=== PATIENT | female | born 1985 | race Two or more races ===

== ENCOUNTER 2020-03-10 13:38 | Outpatient (REF) | payer OTHER, SELFPAY ==
[2020-03-10 14:25] LABS: MANUAL DIFF FLAG NO
[2020-03-10 14:26] LABS: Basophils Absolute Auto 0.1 X10*3/uL (0.0-0.2); Basophils Percent Auto 0.3 % (0-2); Eosinophils Absolute Auto 1.2 X10*3/uL (0.0-0.4); Hematocrit 32.6 % (37-47); Hemoglobin 9.6 g/dl (12.0-16.0); Imm Gran Abs Auto 0.07 X10*3/uL (0.00-0.03); Imm Gran Pct Auto 0.5 % (0.0-0.4); Lymphocytes Absolute Auto 2.6 X10*3/uL (1.2-4.9); Lymphocytes Percent Auto 18.1 % (20-40); Mean Corpuscular HGB Conc 29.4 g/dl (31.0-35.0); Mean Corpuscular Hemoglobin 22.7 pg (27.0-33.0); Mean Corpuscular Volume 77.1 fL (80-98); Mean Platelet Volume 11.3 fL (9.4-12.3); Monocytes Absolute Auto 0.7 X10*3/uL (0.1-1.2); Monocytes Percent Auto 5.1 % (2-11); Neutrophils Absolute Auto 9.8 X10*3/uL (2.0-8.3); Platelet Count 320 X10*3/uL (160-400); Red Blood Count 4.23 X10*6/uL (4.20-5.50); Red Cell Distribution Width 17.8 % (11.0-16.0); White Blood Count 14.4 X10*3/uL (4.8-10.8)
[2020-03-10 14:28] LABS: Glucose Urine UA NEG (NEG); Leukocyte Esterase Urine NEG (NEG); Nitrite Urine NEG (NEG); Specific Gravity - Urine >= 1.030 (1.005-1.025); Urine Blood 1+ (NEG); Urine Ketones NEG (NEG); Urine Protein TRACE MG/DL (NEG-TRACE)
[2020-03-10 14:33] LABS: Appearance Urine CLEAR; Color Urine YELLOW
[2020-03-10 14:51] LABS: Estimated Average Glucose 103 mg/dL; Hemoglobin A1c % 5.2 %
[2020-03-10 14:58] LABS: Alanine Aminotransferase 9 U/L (0-31); Albumin Level 4.1 g/dL (3.5-5.0); Alkaline Phosphatase 84 U/L (39-117); Anion Gap 12 (12-20); Aspartate Amino Transferase 12 U/L (5-31); Bilirubin Total 0.2 mg/dL (0.0-1.0); Blood Urea Nitrogen 11 mg/dL (9-16); C Reactive Protein 0.14 mg/dL (< or = 0.50); Calcium 8.9 mg/dL (8.4-10.2); Carbon Dioxide 25 mmol/L (22-29); Chloride 106 mmol/L (96-108); Cholesterol 146 mg/dL; Estimated Glomerular Filt Rate > 60; Glucose Random 84 mg/dL (60-115); Sodium 138 mmol/L (135-145); Total Protein 7.1 g/dL (6.5-8.0)
[2020-03-10 15:01] LABS: Mucus Urine 1+ /LPF; Squamous Epithelial Cell Urine 2+ /LPF; WBC Urine 0 /HPF (0-4)
[2020-03-10 15:19] LABS: Thyroid Stimulating Hormone 0.41 mIU/mL (0.32-4.0); Vitamin D 25-OH Total 14.1 ng/mL (>30)
[2020-03-10 15:52] LABS: Syphilis Screen Reactive (Nonreactive)
[2020-03-10 16:40] LABS: Vitamin B12 308 pg/mL (200-900)
[2020-03-10 20:09] LABS: CT PCR NOT DETECTED (Not Detect.); NG PCR NOT DETECTED (Not Detect.)
[2020-03-22 12:49] LABS: RPR Quantitative Reactive 1:1 (Nonreactive); T.Pallidum Particle Agg Test Reactive (Nonreactive)
== END 2020-03-10 13:39 | disposition home or self-care (01) ==
LOC: HO.LAB 13:38
PROVIDERS: Visit Provider Internal Medicine
DX: R51.9 Headache, unspecified (principal); G35 Multiple sclerosis; E55.9 Vitamin D deficiency, unspecified; R53.83 Other fatigue; Z11.3 Encounter for screening for infections with a predominantly sexual mode of transmission; Z11.4 Encounter for screening for human immunodeficiency virus [HIV]; Z13.29 Encounter for screening for other suspected endocrine disorder; Z11.8 Encounter for screening for other infectious and parasitic diseases
CPT/HCPCS: 36415; 80053; 81001; 82306; 82465; 82607; 83036; 84443; 85025; 86140; 86592; 86780; 87491; 87591

== ENCOUNTER 2020-06-14 09:09 | Emergency (ER) | payer OTHER, SELFPAY ==
[2020-06-14 09:18] VITALS: BP 113/71; PULSE 89; RESP 18; TEMP 37.2; O2SAT 98; BMI 32.1
--- NOTE | 2020-06-14 09:27 | ED_ITS ---
HPI - URI/Sore Throat General Chief Complaint: General Medical <LEYLA Moran - Last Filed: 06/14/20 09:36> Stated Complaint: sore throat <LEYLA Moran - Last Filed: 06/14/20 09:36> Time Seen by Provider: 06/14/20 09:19 <LEYLA Moran - Last Filed: 06/14/20 09:36> Source: patient <LEYLA Moran Last Filed: 06/14/20 09:36> Mode of arrival: ambulatory <LEYLA Moran Last Filed: 06/14/20 09:36> Limitations: no limitations <LEYLA Moran Last Filed: 06/14/20 09:36> History of Present Illness HPI Narrative: 34 y/o female with no PMH presents to the ED with sore throat, chills and body aches that started yesterday. 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 She reports seeing white patches on her tonsils. She has pain with swallowing. No change in voice, no difficulty handling secretions. No chest pain, SOB or cough. <LEYLA Moran - Last Filed: 06/14/20 09:36> MD elicited complaint: sore throat <LEYLA Moran - Last Filed: 06/14/20 09:36> Onset (ago): day(s) (1) <LEYLA Moran Last Filed: 06/14/20 09:36> Consistency: constant <LEYLA Moran Last Filed: 06/14/20 09:36> Severity: severe <LEYLA Moran Last Filed: 06/14/20 09:36> Pain scale (0-10): 7 <LEYLA Moran Last Filed: 06/14/20 09:36> Able to tolerate fluids by mouth: Yes <LEYLA Moran Last Filed: 06/14/20 09:36> Exacerbating factors: swallowing <LEYLA Moran Last Filed: 06/14/20 09:36> Relieving factors: OTC cold medicine <LEYLA Moran Last Filed: 06/14/20 09:36> Associated symptoms: chills, myalgias and sore throat <LEYLA Moran Last Filed: 06/14/20 09:36> Treatments prior to arrival: none <LEYLA Moran Last Filed: 06/14/20 09:36> Related Data Home Medications: Previous Rx's Medication Instructions Recorded amoxicillin 500 mg PO Q12H #20 tab 06/14/20 <LEYLA Moran Last Filed: 06/14/20 09:36> Allergies/Adverse Reactions: Allergies Allergy/AdvReac Type Severity Reaction Status Date / Time bee pollen [BEE STINGS] Allergy Severe SWELLING Verified 06/14/20 09:23 <LEYLA Moran Last Filed: 06/14/20 09:36> Review of Systems Review of Systems: Constitutional: No Fever, + Chills ENT/Mouth: + sore throat, No Rhinorrhea, No Swallowing Difficulty Eyes: No Eye Pain, No Swelling, No Redness Cardiovascular: No Chest Pain, No SOB Respiratory: No Cough, No Sputum Gastrointestinal: No Nausea, No Vomiting, No Diarrhea, No abdominal Pain Musculoskeletal: No joint pain, + Myalgias Skin: No Skin Lesions, No rash Neuro: No Dizziness, + Headache Heme/Lymph: + Lymphadenopathy <LEYLA Moran Last Filed: 06/14/20 09:36> [facility] Past Medical History Attestation statement: The following information was validated with the patient. <LEYLA Moran Last Filed: 06/14/20 09:36> Physical Exam Vital Signs: Vital Signs: Last Vital Signs Temp 99.0 F 06/14/20 09:18 Pulse 89 06/14/20 09:18 Resp 18 06/14/20 09:18 BP 113/71 06/14/20 09:18 Pulse Ox 98 06/14/20 09:18 Body Mass Index 32.1 Appearance: Alert. Oriented X3. No acute distress. Normal voice. HEENT: posterior pharynx with swollen, erythematous tonsils bilaterally with significant white patches. uvula midline, no appreciated peritonsillar abscess. mucus membranes are moist. Neck: normal inspection, mild submandibular LAD bilaterally. CVS: Normal heart rate and rhythm. Pulses normal. Respiratory: No respiratory distress. Lungs CTAB Skin: Skin warm and dry. Normal skin color. Normal skin turgor. No rashes. Extremities: atraumatic, no [id number] Neuro: Oriented X 3. Non-focal. <LEYLA Moran - Last Filed: 06/14/20 09:36> Vital Signs: Last Vital Signs Temp 99.0 F 06/14/20 09:18 Pulse 89 06/14/20 09:18 Resp 18 06/14/20 09:18 BP 113/71 06/14/20 09:18 Pulse Ox 98 06/14/20 09:18 Body Mass Index 32.1 <Cornell Shaikh MD - Last Filed: 06/21/20 07:48> Course Course Course Narrative: 34 y/o presenting with sore throat, exam consistent with Strep pharyngitis. Recent negative COVID test. No peritonsillar abscess appreciated. Will treat for Strep with Amoxicillin. Patient counseled on management and work note provided. Stable for discharge. <LEYLA Moran - Last Filed: 06/14/20 09:36> I have reviewed the chart <Cornell Shaikh MD - Last Filed: 06/21/20 07:48> MDM - URI/Sore Throat Differential Diagnosis Differential diagnosis: Likely upper respiratory infection, sinusitis, viral infection, bronchitis, influenza and pharyngitis <LEYLA Moran - Last Filed: 06/14/20 09:36> Medical Records Attestation: I reviewed the patient's medical records. <ELYLA Moran - Last Filed: 06/14/20 09:36> Critical Care Time Critical Care Time Critical Care Time: No <LEYLA Moran - Last Filed: 06/14/20 09:36> Discharge Plan Discharge Clinical Impression: Acute streptococcal pharyngitis <LEYLA Moran - Last Filed: 06/14/20 09:36> Patient Disposition: Home, Self-Care <LEYLA Moran - Last Filed: 06/14/20 09:36> Instructions: Strep Throat (ED) <LEYLA Moran - Last Filed: 06/14/20 09:36> Additional Instructions: Your exam is consistent with Strep throat. Take the prescribed antibiotics as directed. Use warm salt water gargles several times per day. Recommend over the counter Chloraseptic [place] or Cepacol lozenges to numb your throat and help with discomfort. Take Tylenol and/or Motrin as needed for fever, body aches, and throat pain. Follow up with your doctor as needed. <LEYLA Moran - Last Filed: 06/14/20 09:36> Prescriptions: New amoxicillin 500 mg tablet 500 mg PO Q12H Qty: 20 RF: 0 <LEYLA Moran - Last Filed: 06/14/20 09:36> Stand Alone Forms: Work/School Release <LEYLA Moran - Last Filed: 06/14/20 09:36> Interventions: ED Discharge Assessment Last Done: 06/14/20 09:41 <LEYLA Moran - Last Filed: 06/14/20 09:36> Discharge Date/Time: 06/14/20 09:42 <LEYLA Moran - Last Filed: 06/14/20 09:36>
== END 2020-06-14 09:42 | disposition home or self-care (01) ==
PROVIDERS: Emergency Provider Emergency Medicine; PCP Internal Medicine
DX: J02.8 Acute pharyngitis due to other specified organisms (principal); M79.10 Myalgia, unspecified site; Z20.822 Contact with and (suspected) exposure to COVID-19
CPT/HCPCS: 99283

== ENCOUNTER 2020-06-16 14:04 | Outpatient (REF) | payer OTHER, SELFPAY ==
[2020-06-16 15:23] LABS: MANUAL DIFF FLAG NO
[2020-06-16 15:38] LABS: Basophils Absolute Auto 0.1 X10*3/uL (0.0-0.2); Basophils Percent Auto 0.5 % (0-2); Eosinophils Percent Auto 8.7 % (0-4); Hematocrit 34.2 % (37-47); Hemoglobin 10.4 g/dl (12.0-16.0); Imm Gran Abs Auto 0.06 X10*3/uL (0.00-0.03); Imm Gran Pct Auto 0.5 % (0.0-0.4); Lymphocytes Absolute Auto 2.9 X10*3/uL (1.2-4.9); Lymphocytes Percent Auto 24.8 % (20-40); Mean Corpuscular HGB Conc 30.4 g/dl (31.0-35.0); Mean Corpuscular Hemoglobin 23.6 pg (27.0-33.0); Mean Corpuscular Volume 77.7 fL (80-98); Mean Platelet Volume 11.2 fL (9.4-12.3); Monocytes Absolute Auto 0.8 X10*3/uL (0.1-1.2); Monocytes Percent Auto 6.9 % (2-11); Neutrophils Absolute Auto 6.9 X10*3/uL (2.0-8.3); Neutrophils Percent Auto 58.6 % (45-73); Platelet Count 322 X10*3/uL (160-400); Red Cell Distribution Width 17.1 % (11.0-16.0); White Blood Count 11.8 X10*3/uL (4.8-10.8)
[2020-06-16 15:59] LABS: Anion Gap 13 (12-20); Blood Urea Nitrogen 8 mg/dL (9-16); C Reactive Protein 1.94 mg/dL (< or = 0.50); Calcium 9.3 mg/dL (8.4-10.2); Carbon Dioxide 27 mmol/L (22-29); Chloride 103 mmol/L (96-108); Estimated Glomerular Filt Rate > 60; Glucose Random 79 mg/dL (60-115); Iron 20 mcg/dL (30-160); Percent Iron Saturation 5 % (15-50); Potassium 4.1 mmol/L (3.3-5.1); Sodium 139 mmol/L (135-145); Total Iron Binding Capacity 438 mcg/dL (228-428); Unsaturated Iron Binding 418 ug/dL
[2020-06-16 16:10] LABS: Free T4 (Free Thyroxine) 0.92 ng/dL (0.71-1.85); Thyroid Stimulating Hormone 0.92 uIU/mL (0.32-4.0); Vitamin D 25-OH Total 11.7 ng/mL (>30)
== END 2020-06-16 14:05 | disposition home or self-care (01) ==
LOC: HO.LAB 14:04
PROVIDERS: PCP Internal Medicine; Visit Provider Internal Medicine
DX: D64.9 Anemia, unspecified (principal); R53.83 Other fatigue; G35 Multiple sclerosis; E55.9 Vitamin D deficiency, unspecified
CPT/HCPCS: 36415; 80048; 82306; 83540; 84439; 84443; 85025; 86140

== ENCOUNTER 2020-07-27 09:07 | Outpatient (REF) | payer OTHER, SELFPAY ==
[2020-07-27 14:19] LABS: CT PCR NOT DETECTED (Not Detect.); NG PCR NOT DETECTED (Not Detect.)
[2020-07-28 09:01] LABS: BV Int Neg Control Negative (Negative); BV Int Pos Control Positive (Positive)
== END 2020-07-27 09:08 | disposition home or self-care (01) ==
LOC: HO.LAB 09:07
PROVIDERS: PCP Internal Medicine; Visit Provider Advanced Practice Midwife
DX: R10.2 Pelvic and perineal pain (principal); N89.8 Other specified noninflammatory disorders of vagina; F17.210 Nicotine dependence, cigarettes, uncomplicated; Z32.02 Encounter for pregnancy test, result negative
CPT/HCPCS: 81025; 87480; 87491; 87510; 87591; 87660; 99212

== ENCOUNTER 2020-08-01 15:41 | Outpatient (REF) | payer OTHER, SELFPAY ==
--- NOTE | ~2020-08-01 | US_ITS ---
EXAMINATION: ULTRASOUND PELVIS CLINICAL INFORMATION: Pelvic pain COMPARISON: None TECHNIQUE: Transabdominal and transvaginal ultrasound of the pelvis is performed. FINDINGS: The uterus is anteverted measuring 9.7 cm in length, 4.4 cm AP and 5.6 cm in transverse dimension. Endometrial thickness is 0.3 cm. There is a small anechoic cyst in the cervix. The right ovary measures 2.6 x 1.7 x 3.1 cm and volume 9.9 mL. There is a small cyst with septation measuring 2.2 x 1.9 cm. Left ovary measures 2.8 x 1.8 x 1.7 cm and volume 4.4 mL. There is no free fluid in the cul-de-sac. US/US transvaginal IMPRESSION: 1. Unremarkable uterus. 2. Small nabothian cysts in the cervix. 3. Small complex cyst right ovary.
--- NOTE | ~2020-08-01 | US_ITS ---
EXAMINATION: ULTRASOUND PELVIS CLINICAL INFORMATION: Pelvic pain COMPARISON: None TECHNIQUE: Transabdominal and transvaginal ultrasound of the pelvis is performed. FINDINGS: The uterus is anteverted measuring 9.7 cm in length, 4.4 cm AP and 5.6 cm in transverse dimension. Endometrial thickness is 0.3 cm. There is a small anechoic cyst in the cervix. The right ovary measures 2.6 x 1.7 x 3.1 cm and volume 9.9 mL. There is a small cyst with septation measuring 2.2 x 1.9 cm. Left ovary measures 2.8 x 1.8 x 1.7 cm and volume 4.4 mL. There is no free fluid in the cul-de-sac. US/US pelvic complete IMPRESSION: 1. Unremarkable uterus. 2. Small nabothian cysts in the cervix. 3. Small complex cyst right ovary.
== END 2020-08-01 15:42 | disposition home or self-care (01) ==
LOC: HO.US 15:41
PROVIDERS: Visit Provider Advanced Practice Midwife
DX: R10.2 Pelvic and perineal pain (principal)
CPT/HCPCS: 76830; 76856

== ENCOUNTER → 2020-08-15 11:22 | Outpatient (BNVA) | payer OTHER, SELFPAY | PROVIDERS: PCP Internal Medicine; Visit Provider Advanced Practice Midwife ==

== ENCOUNTER 2020-10-06 13:57 | Outpatient (REF) | payer OTHER, SELFPAY ==
[2020-10-06 14:36] LABS: MANUAL DIFF FLAG NO
[2020-10-06 14:44] LABS: Basophils Absolute Auto 0.1 X10*3/uL (0.0-0.2); Basophils Percent Auto 0.5 % (0-2); Eosinophils Absolute Auto 0.8 X10*3/uL (0.0-0.4); Eosinophils Percent Auto 6.3 % (0-4); Hematocrit 34.2 % (37-47); Hemoglobin 10.4 g/dl (12.0-16.0); Imm Gran Abs Auto 0.05 X10*3/uL (0.00-0.03); Imm Gran Pct Auto 0.4 % (0.0-0.4); Lymphocytes Absolute Auto 3.3 X10*3/uL (1.2-4.9); Lymphocytes Percent Auto 25.6 % (20-40); Mean Corpuscular HGB Conc 30.4 g/dl (31.0-35.0); Mean Corpuscular Hemoglobin 24.4 pg (27.0-33.0); Mean Corpuscular Volume 80.3 fL (80-98); Mean Platelet Volume 10.9 fL (9.4-12.3); Monocytes Absolute Auto 0.9 X10*3/uL (0.1-1.2); Neutrophils Absolute Auto 7.7 X10*3/uL (2.0-8.3); Neutrophils Percent Auto 60.2 % (45-73); Platelet Count 317 X10*3/uL (160-400); Red Blood Count 4.26 X10*6/uL (4.20-5.50); Red Cell Distribution Width 17.5 % (11.0-16.0); White Blood Count 12.8 X10*3/uL (4.8-10.8)
[2020-10-06 15:20] LABS: Alanine Aminotransferase 9 U/L (0-31); Albumin Level 4.3 g/dL (3.5-5.0); Alkaline Phosphatase 73 U/L (39-117); Anion Gap 11 (12-20); Aspartate Amino Transferase 10 U/L (5-31); Bilirubin Total 0.4 mg/dL (0.0-1.0); Blood Urea Nitrogen 12 mg/dL (9-16); Calcium 9.5 mg/dL (8.4-10.2); Carbon Dioxide 26 mmol/L (22-29); Chloride 103 mmol/L (96-108); Estimated Glomerular Filt Rate > 60; Glucose Random 74 mg/dL (60-115); Iron 25 mcg/dL (30-160); Percent Iron Saturation 6 % (15-50); Sodium 136 mmol/L (135-145); Total Iron Binding Capacity 451 mcg/dL (228-428); Total Protein 7.3 g/dL (6.5-8.0); Unsaturated Iron Binding 426 ug/dL
[2020-10-06 15:39] LABS: Vitamin D 25-OH Total 10.6 ng/mL (>30)
[2020-10-06 15:52] LABS: Vitamin B12 265 pg/mL (200-900)
[2020-10-06 16:42] LABS: Syphilis Screen Reactive (Nonreactive)
[2020-10-08 12:01] LABS: HIV AB/AG Nonreactive (Nonreactive); HIV Num 1 0.05 S/CO (0.00-0.99)
[2020-10-15 13:05] LABS: RPR Quantitative Reactive 1:1 (Nonreactive)
[2020-10-15 13:06] LABS: T.Pallidum Particle Agg Test Reactive (Nonreactive)
== END 2020-10-06 13:58 | disposition home or self-care (01) ==
LOC: HO.LAB 13:57
PROVIDERS: PCP Internal Medicine; Visit Provider Internal Medicine
DX: R53.83 Other fatigue (principal); D64.9 Anemia, unspecified; E55.9 Vitamin D deficiency, unspecified; Z11.3 Encounter for screening for infections with a predominantly sexual mode of transmission
CPT/HCPCS: 36415; 80053; 82306; 82607; 83540; 85025; 86592; 86780; 87389

== ENCOUNTER 2020-10-24 10:50 | Outpatient (REF) | payer OTHER, SELFPAY ==
--- NOTE | ~2020-10-24 | US_ITS ---
EXAMINATION: US PELVIS, COMPLETE CLINICAL INFORMATION: Pelvic pain. COMPARISON: Pelvic ultrasound dated 08/01/2020. TECHNIQUE: Transabdominal and transvaginal imaging was performed. FINDINGS: The uterus is of normal size and echogenicity measuring 9.3 x 9.0 x 6.1 cm. The uterus is anteverted. A regular homogeneous endometrium is identified measuring 1.0 cm. A small Nabothian cyst is seen within the cervix. Both ovaries are of normal size and echogenicity. The right ovary measures 3.1 x 2.6 x 2.2 cm for a volume of 8.9 mL. The right ovary contains a 2.0 x 1.7 x 1.7 cm simple cyst. Previously this measured 2.2 x 1.3 x 1.5 cm, with more complex appearance. The left ovary measures 2.7 x 1.5 x 1.7 cm for a volume of 3.6 mL. The left ovary contains a 0.8 x 0.9 x 1.1 cm simple cyst. There is no pelvic free fluid. No adnexal mass is seen. US/US pelvic complete IMPRESSION: Simple bilateral ovarian cysts are presently seen, with dimensions as detailed. The right ovarian cyst, although slightly increased, now shows a simple appearance.
--- NOTE | ~2020-10-24 | US_ITS ---
EXAMINATION: US PELVIS, COMPLETE CLINICAL INFORMATION: Pelvic pain. COMPARISON: Pelvic ultrasound dated 08/01/2020. TECHNIQUE: Transabdominal and transvaginal imaging was performed. FINDINGS: The uterus is of normal size and echogenicity measuring 9.3 x 9.0 x 6.1 cm. The uterus is anteverted. A regular homogeneous endometrium is identified measuring 1.0 cm. A small Nabothian cyst is seen within the cervix. Both ovaries are of normal size and echogenicity. The right ovary measures 3.1 x 2.6 x 2.2 cm for a volume of 8.9 mL. The right ovary contains a 2.0 x 1.7 x 1.7 cm simple cyst. Previously this measured 2.2 x 1.3 x 1.5 cm, with more complex appearance. The left ovary measures 2.7 x 1.5 x 1.7 cm for a volume of 3.6 mL. The left ovary contains a 0.8 x 0.9 x 1.1 cm simple cyst. There is no pelvic free fluid. No adnexal mass is seen. US/US transvaginal IMPRESSION: Simple bilateral ovarian cysts are presently seen, with dimensions as detailed. The right ovarian cyst, although slightly increased, now shows a simple appearance.
== END 2020-10-24 10:51 | disposition home or self-care (01) ==
LOC: HO.US 10:50
PROVIDERS: PCP Internal Medicine; Visit Provider Advanced Practice Midwife
DX: R10.2 Pelvic and perineal pain (principal); N83.291 Other ovarian cyst, right side
CPT/HCPCS: 76830; 76856

== ENCOUNTER → 2020-10-31 11:42 | Outpatient (BNVA) | payer OTHER, SELFPAY | PROVIDERS: PCP Internal Medicine; Visit Provider Advanced Practice Midwife ==

== ENCOUNTER 2020-11-17 09:33 | Outpatient (REF) | payer OTHER, SELFPAY ==
[2020-11-17 16:44] LABS: CT PCR NOT DETECTED (Not Detect.); NG PCR NOT DETECTED (Not Detect.)
[2020-11-18 12:00] LABS: BV Int Neg Control Negative (Negative); BV Int Pos Control Positive (Positive)
[2020-11-22 21:06] LABS: HPV mRNA E6/E7 rflx Not Detected (Not Detected)
== END 2020-11-17 09:34 | disposition home or self-care (01) ==
LOC: HO.LAB 09:33
PROVIDERS: PCP Internal Medicine; Visit Provider Advanced Practice Midwife
DX: Z01.419 Encounter for gynecological examination (general) (routine) without abnormal findings (principal); N89.8 Other specified noninflammatory disorders of vagina; F17.210 Nicotine dependence, cigarettes, uncomplicated; Z20.2 Contact with and (suspected) exposure to infections with a predominantly sexual mode of transmission
CPT/HCPCS: 87480; 87491; 87510; 87591; 87624; 87660; 88142

== ENCOUNTER → 2021-03-21 11:20 | Outpatient (BNVA) | payer OTHER, SELFPAY | PROVIDERS: PCP Internal Medicine; Visit Provider Physician Assistant | DX: L29.9 Pruritus, unspecified (principal) | CPT/HCPCS: 99203 ==

== ENCOUNTER 2021-10-07 14:21 | Emergency (ER) | payer OTHER, SELFPAY ==
--- NOTE | ~2021-10-07 | US_ITS ---
EXAMINATION: US PELVIS CLINICAL INFORMATION: Abnormal vaginal bleeding COMPARISON: Pelvic ultrasound 10/24/2020. TECHNIQUE: Ultrasound of the pelvis is performed using both transabdominal and transvaginal transducers along with Doppler. Transvaginal imaging is performed due to inadequate visualization transabdominally. FINDINGS: Uterus: Uterus: Uterus measures 8.8 cm x 4.8 cm x 5.9 cm is present in an anteroverted and antral flexed orientation. The endometrial echo complex measures 1.4 cm in maximum width, within expected limits of normal size. No endometrial cavity fluid collections identified. No fibroids visualized. A 4 mm rounded anechoic focus is noted in the region of the uterine cervix and may represent a nabothian cyst. The right ovary measures 2.7 cm x 1.7 cm x 1.6 cm with a volume of 3.8 mm and is normal in appearance. The left ovary measures 2.9 cm x 2.7 cm x 3.5 CM. 2 rounded anechoic well-circumscribed benign-appearing simple cysts are noted within the left ovary, one measuring 1.8 cm in maximum dimension and the other measuring 1.7 cm in maximum dimension. Trace anechoic free intraperitoneal fluid is present posterior to the uterus. Color Doppler interrogation of the left and right ovaries demonstrates no abnormalities or areas of suspicious hyperemia. US/US pelvic and transvaginal IMPRESSION: Normal pelvic ultrasound. Normal appearance of the uterus and ovaries. Normal appearance of the uterine endometrial echo complex. No endometrial cavity fluid collections.
[2021-10-07 14:32] VITALS: BP 119/64; PULSE 90; RESP 18; TEMP 37; O2SAT 99; BMI 35.7
[2021-10-07 14:52] LABS: MANUAL DIFF FLAG NO
[2021-10-07 14:53] LABS: Basophils Absolute Auto 0.1 X10*3/uL (0.0-0.2); Basophils Percent Auto 0.6 % (0-2); Eosinophils Absolute Auto 0.7 X10*3/uL (0.0-0.4); Eosinophils Percent Auto 5.4 % (0-4); Imm Gran Abs Auto 0.06 X10*3/uL (0.00-0.03); Imm Gran Pct Auto 0.5 % (0.0-0.4); Lymphocytes Absolute Auto 3.3 X10*3/uL (1.2-4.9); Lymphocytes Percent Auto 26.2 % (20-40); Mean Corpuscular Hemoglobin 25.4 pg (27.0-33.0); Mean Corpuscular Volume 81.7 fL (80.0-98.0); Mean Platelet Volume 11.3 fL (9.4-12.3); Monocytes Absolute Auto 0.8 X10*3/uL (0.1-1.2); Monocytes Percent Auto 6.4 % (2-11); Neutrophils Absolute Auto 7.7 x10*3/uL (2.0-8.3); Neutrophils Percent Auto 60.9 % (45-73); Platelet Count 285 X10*3/uL (160-400); Red Blood Count 3.55 X10*6/uL (4.20-5.50); Red Cell Distribution Width 16.3 % (11.0-16.0); White Blood Count 12.7 X10*3/uL (4.8-10.8)
[2021-10-07 14:54] LABS: Appearance Urine CLOUDY; Color Urine DK YELLOW; Glucose Urine UA NEG (NEG); Leukocyte Esterase Urine NEG (NEG); Nitrite Urine NEG (NEG); PH 5.5 (5.0-8.0); Specific Gravity - Urine >= 1.030 (1.005-1.025); UACC Culture Trigger NO; Urine Blood 3+ (NEG); Urine Ketones 5 MG/DL (NEG); Urine Protein 1+ MG/DL (NEG-TRACE)
[2021-10-07 14:56] LABS: UPreg QC Valid YES; Urine Pregnancy NEGATIVE (NEGATIVE)
[2021-10-07 15:14] LABS: Bacteria Urine TRACE /LPF; Mucus Urine TRACE /LPF; RBC Urine TNTC /HPF (0); Squamous Epithelial Cell Urine 1+ /LPF
[2021-10-07 15:15] LABS: Anion Gap 12 (12-20); Blood Urea Nitrogen 10 mg/dL (9-16); Calcium 9.3 mg/dL (8.4-10.2); Carbon Dioxide 25 mmol/L (22-29); Chloride 104 mmol/L (96-108); Creatinine Clr Calc Pharmacy 97.4; Estimated Glomerular Filt Rate > 60; Glucose Random 107 mg/dL (60-115); Potassium 4.2 mmol/L (3.3-5.1); Sodium 137 mmol/L (135-145)
--- NOTE | 2021-10-07 16:08 | ED.FEMALEGU ---
HPI - Female Genitourinary General Chief complaint: Urogenital-Female Stated complaint: Vaginal bleeding 3x wks Time Seen by Provider: 10/07/21 16:02 Source: patient Mode of arrival: ambulatory Limitations: no limitations History of Present Illness HPI Narrative: 36-year-old female presents for 3 weeks of heavy vaginal bleeding with clots, weakness, headaches and fatigue. Patient has had similar circumstances in the past. No concerns for sexually transmitted infection or at this time. MD elicited complaint: vaginal bleeding Onset (ago): week(s) (3) Location of symptoms: vaginal Severity: moderate Severity scale (1-10): 6 Quality of pain: aching Consistency: constant Vaginal discharge: none Vaginal bleeding: moderate, dark red, clots and # pads per hour (1) Exacerbating factors: movement Relieving factors: none Associated symptoms: headaches and other (Fatigue) Treatment prior to arrival: none Sexual activity: No Patient : No Related Data Previous Rx's Medication Instructions Recorded amoxicillin 500 mg tablet 500 mg PO Q12H #20 tab 06/14/20 metronidazole 500 mg tablet 500 mg PO BID 7 Days #14 tab 07/28/20 (Flagyl) metronidazole 500 mg tablet 500 mg PO BID 7 Days #14 tab 11/28/20 (Flagyl) desogestrel 0.15 mg-ethinyl 1 tab PO DAILY #84 tab 10/07/21 estradiol 0.03 mg tablet (Apri) Allergies Allergy/AdvReac Type Severity Reaction Status Date / Time bee pollen [BEE STINGS] Allergy Severe SWELLING Verified 10/07/21 14:32 Review of Systems Review of Systems: Constitutional: No Fever, No Chills ENT/Mouth: No Ear Pain, No Hoarseness, No sore throat Eyes: No Eye Pain, No Swelling, No Redness, No Foreign Body Cardiovascular: No Chest Pain, No SOB Respiratory: No Cough, No Dyspnea Gastrointestinal: No Nausea, No Vomiting, No Diarrhea, No abdominal Pain Genitourinary: No Dysuria, No Hematuria Musculoskeletal: positive joint pain, No Myalgias, No Joint Swelling Skin: No Skin lacerations, No rash Neuro: No Weakness, No Numbness, No Paresthesias, No Loss of Consciousness, No Dizziness, No Headache Psych: No Anxiety/Panic, No Depression Heme/Lymph: no easy bruising, no Lymphadenopathy Endocrine: No Polyuria, No Polydipsia Yes all other systems are reviewed and are negative [facility] Past Medical History Attestation statement: The following information was validated with the patient. Source: old records reviewed Medical History Simple ovarian cyst Surgical History Hx of tubal ligation Social History Social History Alcohol intake: unknown Cigarettes Per Day: 5 Use of substances other than those prescribed or required for medical reasons: Unknown Advance Directives: No Advance Directives Information Provided: No Patient : No Gender identity: Male and Female Physical Exam Vital Signs: Vital Signs: Last Vital Signs Temp 97.6 F 10/07/21 19:44 Pulse 63 10/07/21 19:44 Resp 16 10/07/21 19:44 BP 102/58 L 10/07/21 19:44 Pulse Ox 99 10/07/21 19:44 BMI result Body Mass Index 35.7 Appearance: Alert. Oriented X3. No acute distress. Eyes: Pupils equal, round and reactive to light. ENT: Pharynx normal. Neck: Normal inspection. Neck supple. CVS: Normal heart rate and rhythm. Pulses normal. Respiratory: No respiratory distress. Breath sounds normal. Abdomen: Soft and nontender. Skin: Skin warm and dry. Normal skin color. Normal skin turgor. Extremities: No lower extremity edema. Gait well balanced will coordinated. Neuro: No motor deficit. No sensory deficit. Cranial nerves 2-12 intact. : External Female Exam: normal external appearance and normal appearance of the urethra Speculum Exam - Vagina: normal appearance of the vagina, normal palpation and abnormal vaginal discharge bloody Speculum Exam - Cervix: normal appearance of the cervix and normal palpation Bimanual exam- vagina & uterus: normal palpation and normal palpation Bimanual Exam- Adnexa, other: normal adnexae Course Course Course Narrative: 36-year-old female presents for abnormal vaginal bleeding for approximately 3 weeks. Has had similar episodes in the past. Lab values drawn the patient was in the emergency department waiting room, H&H is 9.0/29.0 slightly lower than prior values. Pelvic exam completed, normal cervical os consistent with prior vaginal deliveries, dark red blood, no clotting or tissue in the os. No cervical tenderness to palpation, no adnexal tenderness. Will order pelvic ultrasound. 20:21 pelvic ultrasound is normal. Will treat with Apri. I did discuss this case with Dr. Law as well as Dr. Carter. Both are in agreement with this plan. Patient will follow-up with Dr. Carter in his office this week. Patient verbalized understanding of and agrees to plan of care to discharge home. Verbalized understanding of signs and symptoms indicating need for emergent intervention MDM - Female Genitourinary MDM Narrative Medical decision making narrative: Dysmenorrhea, endometriosis, uterine fibroids, adenomyosis Medical Records Attestation: I reviewed the patient's medical records. Lab Data Attestation: I reviewed the patient's lab results. Result diagrams: 10/07/21 14:46 10/07/21 14:46 Labs: Lab Results 10/07/21 10/07/21 10/07/21 Range/Units 14:45 14:45 14:46 WBC 12.7 H (4.8-10.8) X10*3/uL RBC 3.55 L (4.20-5.50) X10*6/uL Hgb 9.0 L (12.0-16.0) g/dl Hct 29.0 L (37.0-47.0) % MCV 81.7 (80.0-98.0) fL MCH 25.4 L (27.0-33.0) pg MCHC 31.0 (31.0-35.0) g/dl RDW 16.3 H (11.0-16.0) % Plt Count 285 (160-400) X10*3/uL MPV 11.3 (9.4-12.3) fL Immature Gran % (Auto) 0.5 H (0.0-0.4) % Neut % (Auto) 60.9 (45-73) % Lymph % (Auto) 26.2 (20-40) % [place] % (Auto) 6.4 (2-11) % Eos % (Auto) 5.4 H (0-4) % Baso % (Auto) 0.6 (0-2) % Lymph # (Auto) 3.3 (1.2-4.9) X10*3/uL [place] # (Auto) 0.8 (0.1-1.2) X10*3/uL Eos # (Auto) 0.7 H (0.0-0.4) X10*3/uL Baso # (Auto) 0.1 (0.0-0.2) X10*3/uL Abs Immat Gran (auto) 0.06 H (0.00-0.03) X10*3/uL Absolute Neuts (auto) 7.7 (2.0-8.3) x10*3/uL Absolute Nucleated RBC 0.000 (0.0-0.012) X10*3/uL Nucleated RBC % (auto) 0.0 (0.0-0.2) /100WBC Sodium (135-145) mmol/L Potassium (3.3-5.1) mmol/L Chloride (96-108) mmol/L Carbon Dioxide (22-29) mmol/L Anion Gap (12-20) BUN (9-16) mg/dL Creatinine (0.5-1.4) mg/dL Estim Creat Clear Calc Estimated GFR Random Glucose (60-115) mg/dL Calcium (8.4-10.2) mg/dL Urine Color DK YELLOW Urine Appearance CLOUDY Urine pH 5.5 (5.0-8.0) Ur Specific [place] >= 1.030 H (1.005-1.025) Urine Protein 1+ H (NEG-TRACE) MG/DL Urine Glucose (UA) NEG (NEG) MG/DL Urine Ketones 5 (NEG) MG/DL Urine Blood 3+ H (NEG) Urine Nitrite NEG (NEG) Ur Leukocyte Esterase NEG (NEG) Urine RBC TNTC H (0) /HPF Urine WBC 1-4 (0-4) /HPF Ur Squamous Epith Cells 1+ /LPF Urine Bacteria TRACE /LPF Urine Mucus TRACE /LPF Urine Test NEGATIVE (NEGATIVE) 10/07/21 Range/Units 14:46 WBC (4.8-10.8) X10*3/uL RBC (4.20-5.50) X10*6/uL Hgb (12.0-16.0) g/dl Hct (37.0-47.0) % MCV (80.0-98.0) fL MCH (27.0-33.0) pg MCHC (31.0-35.0) g/dl RDW (11.0-16.0) % Plt Count (160-400) X10*3/uL MPV (9.4-12.3) fL Immature Gran % (Auto) (0.0-0.4) % Neut % (Auto) (45-73) % Lymph % (Auto) (20-40) % [place] % (Auto) (2-11) % Eos % (Auto) (0-4) % Baso % (Auto) (0-2) % Lymph # (Auto) (1.2-4.9) X10*3/uL [place] # (Auto) (0.1-1.2) X10*3/uL Eos # (Auto) (0.0-0.4) X10*3/uL Baso # (Auto) (0.0-0.2) X10*3/uL Abs Immat Gran (auto) (0.00-0.03) X10*3/uL Absolute Neuts (auto) (2.0-8.3) x10*3/uL Absolute Nucleated RBC (0.0-0.012) X10*3/uL Nucleated RBC % (auto) (0.0-0.2) /100WBC Sodium 137 (135-145) mmol/L Potassium 4.2 (3.3-5.1) mmol/L Chloride 104 (96-108) mmol/L Carbon Dioxide 25 (22-29) mmol/L Anion Gap 12 (12-20) BUN 10 (9-16) mg/dL Creatinine 0.94 (0.5-1.4) mg/dL Estim Creat Clear Calc 97.4 Estimated GFR > 60 Random Glucose 107 (60-115) mg/dL Calcium 9.3 (8.4-10.2) mg/dL Urine Color Urine Appearance Urine pH (5.0-8.0) Ur Specific [place] (1.005-1.025) Urine Protein (NEG-TRACE) MG/DL Urine Glucose (UA) (NEG) MG/DL Urine Ketones (NEG) MG/DL Urine Blood (NEG) Urine Nitrite (NEG) Ur Leukocyte Esterase (NEG) Urine RBC (0) /HPF Urine WBC (0-4) /HPF Ur Squamous Epith Cells /LPF Urine Bacteria /LPF Urine Mucus /LPF Urine Test (NEGATIVE) Imaging Data Pelvic ultrasound: Attestation: I personally reviewed and interpreted this imaging study as follows: Radiologist's impression: EXAMINATION:? US PELVIS CLINICAL INFORMATION:? Abnormal vaginal bleeding COMPARISON: Pelvic ultrasound 10/24/2020. TECHNIQUE: Ultrasound of the pelvis is performed using both transabdominal and transvaginal transducers along with Doppler. Transvaginal imaging is performed due to inadequate visualization transabdominally. FINDINGS: Uterus: Uterus: Uterus measures 8.8 cm x 4.8 cm x 5.9 cm is present in an anteroverted and antral flexed orientation. The endometrial echo complex measures 1.4 cm in maximum width, within expected limits of normal size. No endometrial cavity fluid collections identified. No fibroids visualized. A 4 mm rounded anechoic focus is noted in the region of the uterine cervix and may represent a nabothian cyst. The right ovary measures 2.7 cm x 1.7 cm x 1.6 cm with a volume of 3.8 mm and is normal in appearance. The left ovary measures 2.9 cm x 2.7 cm x 3.5 CM. 2 rounded anechoic well-circumscribed benign-appearing simple cysts are noted within the left ovary, one measuring 1.8 cm in maximum dimension and the other measuring 1.7 cm in maximum dimension. Trace anechoic free intraperitoneal fluid is present posterior to the uterus. Color Doppler interrogation of the left and right ovaries demonstrates no abnormalities or areas of suspicious hyperemia. US/US pelvic and transvaginal IMPRESSION: Normal pelvic ultrasound. Normal appearance of the uterus and ovaries. Normal appearance of the uterine endometrial echo complex. No endometrial cavity fluid collections. Discharge Plan Discharge Clinical Impression: Abnormal vaginal bleeding Patient Disposition: Home, Self-Care Instructions: Dysfunctional Uterine Bleeding (ED) Additional Instructions: You were evaluated for abnormal vaginal bleeding. Please follow-up with OBGYN. I did discuss your case with Dr. Carter. Please call and request an appointment. He is expecting your call. Please take control pill on a daily basis. Thank you for choosing this emergency department for evaluation. Please follow-up with primary care physician as needed. Return to the emergency department for any new, concerning, or worsening symptoms. Prescriptions: New desogestrel-ethinyl estradiol [Apri] 0.15-0.03 mg tablet 1 tab PO DAILY Qty: 84 0RF No Action metronidazole [Flagyl] 500 mg tablet 500 mg PO BID 7 Days Qty: 14 0RF metronidazole [Flagyl] 500 mg tablet 500 mg PO BID 7 Days Qty: 14 0RF Rx Instructions: Take with food, Avoid alcohol and vinegar products amoxicillin 500 mg tablet 500 mg PO Q12H Qty: 20 0RF Referrals: Rashaun Carter MD [Physician] - (Abnormal vaginal bleeding) Stand Alone Forms: Work/School Release Interventions: ED Discharge Assessment Last Done: 10/07/21 20:55 Discharge Date/Time: 10/07/21 20:56
--- NOTE | 2021-10-07 19:38 | PC.NURSE ---
report recieved from previous shift RN, no assessment documented.
[2021-10-07 19:44] VITALS: BP 102/58; PULSE 63; RESP 16; TEMP 36.4; O2SAT 99
--- NOTE | 2021-10-08 08:22 | PM.GYNCN ---
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 Physical Exam Vitals Vital signs: Temp Pulse Resp BP Pulse Ox 97.6 F 63 16 102/58 L 99 10/07/21 19:44 10/07/21 19:44 10/07/21 19:44 10/07/21 19:44 10/07/21 19:44 BMI result Body Mass Index 35.7 Additional Comments: Pelvic exam reported by Soraya Champagne NP no cervical motion, uterine or adnexal tenderness no evidence of active bleeding PROP 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 DESIGNER - Results Labs CBC & Chem 7: 10/07/21 14:46 10/07/21 14:46 Labs: Short CBC 10/07/21 Range/Units 14:46 WBC 12.7 H (4.8-10.8) X10*3/uL Hgb 9.0 L (12.0-16.0) g/dl Hct 29.0 L (37.0-47.0) % Plt Count 285 (160-400) X10*3/uL BMP 10/07/21 14:46 Sodium 137 Potassium 4.2 Chloride 104 Carbon Dioxide 25 BUN 10 Creatinine 0.94 Calcium 9.3 Urine 10/07/21 10/07/21 Range/Units 14:45 14:45 Urine Color DK YELLOW Urine Appearance CLOUDY Urine pH 5.5 (5.0-8.0) Ur Specific Haworth >= 1.030 H (1.005-1.025) Urine Protein 1+ H (NEG-TRACE) MG/DL Urine Glucose (UA) NEG (NEG) MG/DL Urine Test NEGATIVE (NEGATIVE) Imaging US - abdomen: Radiologist's impression: ITS Impressions Pelvic/Transvag US 10/07/21 17:24 IMPRESSION: Normal pelvic ultrasound. Normal appearance of the uterus and ovaries. Normal appearance of the uterine endometrial echo complex. No endometrial cavity fluid collections. Assessment and Plan (1) Abnormal uterine bleeding (AUB): Status: Acute Plan Recommended Vin Champagne NP the following is: Start the patient on I pre 1 tablet p.o. q.d., instructions to be given to the patient to call back or come to emergency room in case of heavy vaginal bleeding and passage of blood clots, and to follow-up in the office in the coming 48 hours. I spent a total of 25 minutes reviewing the chart, talking to the emergency room provider and documenting in the medical record
== END 2021-10-07 20:56 | disposition home or self-care (01) ==
PROVIDERS: Emergency Provider Internal Medicine; PCP Internal Medicine
DX: N93.9 Abnormal uterine and vaginal bleeding, unspecified (principal)
CPT/HCPCS: 36415; 76830; 76856; 80048; 81001; 81025; 85025; 99284

== ENCOUNTER 2021-10-11 10:29 | Outpatient (REF) | payer OTHER, SELFPAY ==
[2021-10-11 12:07] LABS: Hematocrit 28.8 % (37.0-47.0); Hemoglobin 9.1 g/dl (12.0-16.0); Mean Corpuscular HGB Conc 31.6 g/dl (31.0-35.0); Mean Corpuscular Hemoglobin 25.6 pg (27.0-33.0); Mean Corpuscular Volume 81.1 fL (80.0-98.0); Platelet Count 346 X10*3/uL (160-400); Red Blood Count 3.55 X10*6/uL (4.20-5.50); Red Cell Distribution Width 16.4 % (11.0-16.0); White Blood Count 12.1 X10*3/uL (4.8-10.8)
[2021-10-11 12:52] LABS: TSH reflex Free T4 1.07 uIU/mL (0.32-4.0)
[2021-10-11 14:16] LABS: CT PCR NOT DETECTED (Not Detect.); NG PCR NOT DETECTED (Not Detect.)
== END 2021-10-11 10:30 | disposition home or self-care (01) ==
LOC: HO.LAB 10:29
PROVIDERS: PCP Internal Medicine; Visit Provider Obstetrics & Gynecology
DX: N93.9 Abnormal uterine and vaginal bleeding, unspecified (principal)
CPT/HCPCS: 36415; 84443; 85027; 87491; 87591; 99212

== ENCOUNTER 2021-10-31 20:09 | Emergency (ER) | payer OTHER, SELFPAY ==
--- NOTE | ~2021-10-31 | US_ITS ---
EXAMINATION: US PELVIS CLINICAL INFORMATION: Vaginal bleeding. COMPARISON: Pelvic ultrasound 10/07/2021, 10/24/2020, 08/01/2020 TECHNIQUE: Ultrasound of the pelvis is performed using both transabdominal and transvaginal transducers along with Doppler. Transvaginal imaging is performed due to inadequate visualization transabdominally. FINDINGS: Uterus: The uterus is anteverted and measures 10.9 x 5.5 x 6.8 cm. The double wall endometrial thickness is 11 mm. The uterus is smooth in contour and has normal myometrial echogenicity. No visible fibroid. Small nabothian cysts at the cervix. Adnexa: Right adnexa: There is normal color flow to the right adnexa. Both arterial and venous vascular flow demonstrated. There is no right-sided ovarian torsion. Right ovary measures 2.2 x 2.0 x 1.7 cm. Right ovarian volume 3.9 mL Left adnexa: There is a large nearly anechoic cyst in left ovary measuring 4.3 x 3.2 x 3 cm. On the prior ultrasound exam of 10/07/2021 there were 2 separate ovarian cysts. There was a 1.8 and 1.7 cm cyst. Vascular flow cannot be demonstrated within the left ovary. In the left adnexa there is a tortuous vessel , whirlpool sign . Findings concerning for a torsed left ovary. Left ovary measures 4.7 x 3.5 x 3.5 cm. Volume 30.2 mL. Left ovary previously measured 2.9 x 2.7 x 3.5 cm on pelvic ultrasound 10/07/2021. Cul-de-sac: Small volume of free fluid. US/US pelvic and transvaginal IMPRESSION: 1. Large left ovarian cyst. 2. Vascular flow cannot be demonstrated in the left ovary. There is a tortuous vessel in the left adnexa. Findings concerning for torsion of the left ovary. Clinically correlate. A Short-term follow-up pelvic ultrasound may be considered. This critical result was discussed with Ted Gordon NP on 10/31/2021, 2148 hours and it was ascertained that the content and urgency of the report was understood at the time of direct communication.
[2021-10-31 20:16] VITALS: BP 111/54; PULSE 86; RESP 18; TEMP 36.3; O2SAT 100; BMI 36.6
[2021-10-31 20:28] LABS: MANUAL DIFF FLAG NO
[2021-10-31 20:29] LABS: Basophils Percent Auto 0.3 % (0-2); Eosinophils Absolute Auto 0.6 X10*3/uL (0.0-0.4); Eosinophils Percent Auto 4.7 % (0-4); Imm Gran Abs Auto 0.07 X10*3/uL (0.00-0.03); Imm Gran Pct Auto 0.6 % (0.0-0.4); Lymphocytes Absolute Auto 2.3 X10*3/uL (1.2-4.9); Lymphocytes Percent Auto 19.8 % (20-40); Mean Corpuscular HGB Conc 30.8 g/dl (31.0-35.0); Mean Corpuscular Hemoglobin 24.6 pg (27.0-33.0); Mean Corpuscular Volume 79.8 fL (80.0-98.0); Mean Platelet Volume 10.2 fL (9.4-12.3); Monocytes Absolute Auto 0.6 X10*3/uL (0.1-1.2); Monocytes Percent Auto 4.8 % (2-11); Neutrophils Absolute Auto 8.2 x10*3/uL (2.0-8.3); Neutrophils Percent Auto 69.8 % (45-73); Platelet Count 268 X10*3/uL (160-400); Red Blood Count 2.52 X10*6/uL (4.20-5.50); Red Cell Distribution Width 15.6 % (11.0-16.0); White Blood Count 11.8 X10*3/uL (4.8-10.8)
[2021-10-31 20:33] LABS: Hemoglobin 6.2 g/dl (12.0-16.0)
[2021-10-31 20:34] LABS: Hematocrit 20.1 % (37.0-47.0)
[2021-10-31 20:48] LABS: Alanine Aminotransferase 10 U/L (0-31); Albumin Level 3.6 g/dL (3.5-5.0); Alkaline Phosphatase 74 U/L (39-117); Anion Gap 10 (12-20); Aspartate Amino Transferase 10 U/L (5-31); Bilirubin Direct < 0.2 mg/dL (0.0-0.5); Bilirubin Total 0.2 mg/dL (0.0-1.0); Blood Urea Nitrogen 8 mg/dL (9-16); Calcium 8.4 mg/dL (8.4-10.2); Carbon Dioxide 25 mmol/L (22-29); Chloride 108 mmol/L (96-108); Creatinine Clr Calc Pharmacy 130.6; Estimated Glomerular Filt Rate > 60; Glucose Random 145 mg/dL (60-115); Potassium 4.1 mmol/L (3.3-5.1); Sodium 139 mmol/L (135-145); Total Protein 6.5 g/dL (6.5-8.0)
[2021-10-31 21:09] LABS: HCG Quantitative < 2 mIU/mL
--- NOTE | 2021-10-31 21:10 | ED.PREGNANCY ---
HPI - General Chief complaint: Vaginal Bleeding Stated complaint: headache ,vomiting,vaginal bleeding Time Seen by Provider: 10/31/21 20:47 Source: patient Mode of arrival: ambulatory Limitations: no limitations History of Present Illness HPI Narrative: This is a 36-year-old female M3 presenting to the emergency department with significant vaginal bleeding, nausea, vomiting, dizziness and headache. Patient tells me she has been heavily bleeding since the end of September. She tells me she is currently going through 5 pads per day, and she has gone through 3 packs of 36 pads in 2 and half weeks. She tells me she is currently passing dark red blood with clots. She tells me she was seen urine september advised to follow-up with OBGYN, she was started on OCPs, she tells me she started them when she noticed that she stop bleeding she stopped taking this medication and again heavily started bleeding, she started them back up again however despite starting the medication she still reports severe bleeding. She reports a frontal bilateral headache, it feels like a tight sensation, 10/10. She tells me she has a history of a tubal ligation, she does not think she is . OBGYN has not been able to identify a cause for patient's bleeding according to patient. Vague complaints of left sided flank discomfort. At this time denies chest pain, shortness of breath, fevers, chills, abdominal pain. MD Complaint: vaginal bleeding Onset (ago): week(s) (3) Pain Consistency: constant Relieving factors: none Exacerbating factors: none Associated symptoms: denies other symptoms Vaginal discharge: none Vaginal bleeding: heavy and clots Hx Last Menstrual Period: irregular Patient : No Related Data Previous Rx's Medication Instructions Recorded desogestrel 0.15 mg-ethinyl 1 tab PO DAILY #84 tabs 10/07/21 estradiol 0.03 mg tablet (Apri) Allergies Allergy/AdvReac Type Severity Reaction Status Date / Time bee pollen [BEE STINGS] Allergy Severe SWELLING Verified 10/11/21 10:50 Review of Systems Review of Systems: Constitutional : No Weight loss, No Fever, No Chills, No Fatigue, No Malaise ENT/Mouth : No sore throat, No Rhinorrhea Eyes: No Eye Pain, No Swelling, No Redness Cardiovascular : No Chest Pain, No SOB, No Dyspnea on Exertion, No Orthopnea, No Edema, No Palpitations Respiratory : No Cough, No Sputum, No Wheezing Gastrointestinal : No Nausea, No Vomiting, No Diarrhea, No Constipation, No abdominal Pain, No Hematochezia, No Melena Genitourinary : No Dysuria, No Urinary Frequency, No Hematuria, + vaginal bleeding Musculoskeletal : No joint pain, No Myalgias, No Joint Swelling Skin : No Skin Lesions, No rash Neuro : No Weakness, No Numbness, No Dizziness, No Headache Psych : No Anxiety/Panic, No Depression All other systems reviewed and are negative Yes all other systems are reviewed and are negative [facility] Past Medical History Attestation statement: The following information was validated with the patient. Source: old records reviewed and nursing notes reviewed Surgical History Hx of tubal ligation Hx Last Menstrual Period: irregular Social History Social History Alcohol intake: unknown Patient Tobacco Use Status: Current someday Tobacco user Cigarettes Per Day: 5 Advance Directives: No Advance Directives Information Provided: Yes Patient : No Gender identity: Male and Female Physical Exam Vital Signs: Vital Signs: Last Vital Signs Temp 98.5 F 10/31/21 21:57 Pulse 84 10/31/21 21:57 Resp 16 10/31/21 21:57 BP 111/62 10/31/21 21:57 Pulse Ox 98 10/31/21 21:57 O2 Del Method 10/31/21 21:57 BMI result Body Mass Index 36.6 Vital signs stable. Appearance: Alert.? Oriented X3.? No acute distress.? Head: Normocephalic, atraumatic, no step-offs or deformities Eyes: Pupils equal, round and reactive to light.? Neck: Normal inspection.? Neck supple.? CVS: Normal heart rate and rhythm.? Pulses normal.? Respiratory: No respiratory distress.? Breath sounds normal.? Abdomen: Soft and nontender.? Skin: Skin warm and dry.? Normal skin color.? Normal skin turgor.? Extremities: No lower extremity edema.? No calf ttp. 5/5 strength to bilateral upper and lower extremities Back: No midline tenderness, no C-spine tenderness, full range of motion, no CVA tenderness bilaterally External Female Exam: normal external appearance and normal appearance of the urethra Speculum Exam Vagina: normal appearance of the vagina, normal palpation and abnormal large amount of dark red blood wit clots. Cervix: normal appearance of the cervix, closed os, didn't visualize POC. Neuro: Oriented X 3.? No motor deficit.? No sensory deficit. CN 2-12 intact Course Reevaluation(s) Reevaluation #1: CBC with a microcytic anemia, 6.2 hemoglobin hematocrit 20.1 likely secondary to acute blood loss. Slightly elevated white blood cell count. Chemistry with no acute electrolyte abnormalities requiring intervention. HCG serum negative. a just got a phone call from [facility] to report critical result on this patient, patient has torsion of the left ovary as they were unable to visualize blood flow. Also there is fluid in the cul-de-sac, large cyst in the left ovary measuring 4.3 cm. Immediately [facility] was called for transfer as we do not have OBGYN coverage at this time. 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 Toney to see if this case could be dealt with in house however due to patient's bleeding, and left ovarian torsion she should be at a facility that has no OBGYN provider. At this time [facility] at [facility] will take patient. Images sent over to [facility]. Blood running. Time: 22:23 MDM - OB/Uterine Contractions [facility] Narrative Medical decision making narrative: 2113 36-year-old female presents with heavy vaginal bleeding x3 weeks well as nausea, vomiting, headache, vague complaints of l lower back pain . No red flag symptoms for headache. Physical examination significant for a large amount of dark red blood with clots in the vaginal canal, closed cervical os. Tolerated exam well. No CVA tenderness. Regular rate and rhythm. Lungs clear. Abdomen soft nontender nondistended. No pain with palpation to back. Hemodynamically stable. Plan at this time is to obtain basic labs, type and screen, transvaginal ultrasound, obtain consent for blood products, urine, urine . Immediately when patient was brought back from the waiting room I ordered a transvaginal stat ultrasound as well as a type and screen, and a unit of packed red blood cells. Unlikely that this is ICH likley headache secondary to anemia. Will rule out fibroids, ruptured ovarian cysts, torsion, ectopic Medical Records Attestation: I reviewed the patient's medical records. Lab Data Attestation: I reviewed the patient's lab results. Result diagrams: 10/31/21 20:23 10/31/21 20:23 Labs: Lab Results 10/31/21 10/31/21 10/31/21 Range/Units 20:23 20:23 21:05 WBC 11.8 H (4.8-10.8) X10*3/uL RBC 2.52 L D (4.20-5.50) X10*6/uL Hgb 6.2 L* D (12.0-16.0) g/dl Hct 20.1 L* D (37.0-47.0) % MCV 79.8 L (80.0-98.0) fL MCH 24.6 L (27.0-33.0) pg MCHC 30.8 L (31.0-35.0) g/dl RDW 15.6 (11.0-16.0) % Plt Count 268 (160-400) X10*3/uL MPV 10.2 (9.4-12.3) fL Immature Gran % (Auto) 0.6 H (0.0-0.4) % Neut % (Auto) 69.8 (45-73) % Lymph % (Auto) 19.8 L (20-40) % Divide % (Auto) 4.8 (2-11) % Eos % (Auto) 4.7 H (0-4) % Baso % (Auto) 0.3 (0-2) % Lymph # (Auto) 2.3 (1.2-4.9) X10*3/uL Divide # (Auto) 0.6 (0.1-1.2) X10*3/uL Eos # (Auto) 0.6 H (0.0-0.4) X10*3/uL Baso # (Auto) 0.0 (0.0-0.2) X10*3/uL Abs Immat Gran (auto) 0.07 H (0.00-0.03) X10*3/uL Absolute Neuts (auto) 8.2 (2.0-8.3) x10*3/uL Absolute Nucleated RBC 0.000 (0.0-0.012) X10*3/uL Nucleated RBC % (auto) 0.0 (0.0-0.2) /100WBC Sodium 139 (135-145) mmol/L Potassium 4.1 (3.3-5.1) mmol/L Chloride 108 (96-108) mmol/L Carbon Dioxide 25 (22-29) mmol/L Anion Gap 10 L (12-20) BUN 8 L (9-16) mg/dL Creatinine 0.71 (0.5-1.4) mg/dL Estim Creat Clear Calc 130.6 Estimated GFR > 60 Random Glucose 145 H (60-115) mg/dL Calcium 8.4 D (8.4-10.2) mg/dL Total Bilirubin 0.2 (0.0-1.0) mg/dL Direct Bilirubin < 0.2 (0.0-0.5) mg/dL AST 10 (5-31) U/L ALT 10 (0-31) U/L Alkaline Phosphatase 74 (39-117) U/L Total Protein 6.5 (6.5-8.0) g/dL Albumin 3.6 (3.5-5.0) g/dL Beta HCG, Quant < 2 mIU/mL Blood Type O Positive Antibody Screen NEGATIVE Crossmatch See Detail Critical Care Time Critical Care Time Critical Care Time: Yes Total Critical Care Time: 60 Attestation: I attest to this time spent taking care of the patient, obtaining history, physical, reviewing labs, imaging, speaking to my attending, speaking to specialist. Discharge Plan Discharge Clinical Impression: Torsion of left ovary, Abnormal vaginal bleeding, Ovarian cyst, Headache Patient Disposition: er [facility] Transfer Details: Dr. Wilson accepting patient at [facility]. Prescriptions: No Action desogestrel-ethinyl estradiol [Apri] 0.15-0.03 mg tablet 1 tab PO DAILY Qty: 84 0RF
[2021-10-31 21:57] VITALS: BP 111/62; PULSE 84; RESP 16; TEMP 36.9; O2SAT 98
--- NOTE | 2021-10-31 22:07 | PC.NURSE ---
call out to [facility] transfer line @[phone] regarding transfer
[2021-10-31] MEDS: 0.9 % Sodium Chloride 1,000 ML 999 ML IV ×2 (22:13)
[2021-10-31 22:25] VITALS: BP 123/66; PULSE 100; RESP 14; TEMP 36.9
[2021-10-31 22:27] LABS: COVID-19 Test Negative (Negative)
[2021-10-31] MEDS: Morphine Sulfate 4 MG/ML CARTRIDGE IVPUSH (22:32)
[2021-10-31 22:34] VITALS: PULSE 86; RESP 13; TEMP 36.9
--- NOTE | 2021-10-31 22:46 | PC.NURSE ---
Blood continues to run as patient is being transported to [facility]. Last pressure not obtained as EMS arrived. Previous pressure within normal limits. Patient alert and oriented, no transfusion reaction noted.
[2021-10-31 22:50] LABS: Prothrombin Time 11.5 SEC (9.9-13.0)
== END 2021-10-31 22:46 | disposition short-term general hospital (02) ==
PROVIDERS: Physician Assistant; Emergency Provider Internal Medicine; PCP Internal Medicine
DX: N83.512 Torsion of left ovary and ovarian pedicle (principal); D64.9 Anemia, unspecified; N83.202 Unspecified ovarian cyst, left side; N93.9 Abnormal uterine and vaginal bleeding, unspecified; R51.9 Headache, unspecified; Z98.51 Tubal ligation status; Z20.822 Contact with and (suspected) exposure to COVID-19
CPT/HCPCS: 36415; 36430; 76830; 76856; 80053; 82248; 84702; 85025; 85610; 86850; 86900; 86901; 86923; 87635; 93975; 96361; 96372; 96374; 99285; J1885; J2270; P9016

== ENCOUNTER 2021-11-14 15:15 | Outpatient (REF) | payer OTHER, SELFPAY ==
[2021-11-14 15:27] LABS: MANUAL DIFF FLAG NO
[2021-11-14 15:58] LABS: Anion Gap 12 (12-20); Blood Urea Nitrogen 11 mg/dL (9-16); Calcium 8.5 mg/dL (8.4-10.2); Carbon Dioxide 22 mmol/L (22-29); Chloride 109 mmol/L (96-108); Estimated Glomerular Filt Rate > 60; Glucose Random 107 mg/dL (60-115); Iron 182 mcg/dL (30-160); Percent Iron Saturation 35 % (15-50); Potassium 4.3 mmol/L (3.3-5.1); Sodium 139 mmol/L (135-145); Total Iron Binding Capacity 514 mcg/dL (228-428); Unsaturated Iron Binding 332 ug/dL
[2021-11-14 16:03] LABS: Basophils Absolute Auto 0.1 X10*3/uL (0.0-0.2); Basophils Percent Auto 0.4 % (0-2); Eosinophils Absolute Auto 0.6 X10*3/uL (0.0-0.4); Eosinophils Percent Auto 4.5 % (0-4); Hematocrit 23.1 % (37.0-47.0); Imm Gran Abs Auto 0.14 X10*3/uL (0.00-0.03); Imm Gran Pct Auto 1.1 % (0.0-0.4); Lymphocytes Absolute Auto 2.7 X10*3/uL (1.2-4.9); Lymphocytes Percent Auto 20.7 % (20-40); Mean Corpuscular HGB Conc 30.3 g/dl (31.0-35.0); Mean Corpuscular Hemoglobin 24.6 pg (27.0-33.0); Mean Corpuscular Volume 81.1 fL (80.0-98.0); Mean Platelet Volume 10.4 fL (9.4-12.3); Monocytes Absolute Auto 0.7 X10*3/uL (0.1-1.2); Monocytes Percent Auto 5.4 % (2-11); NRBC Pct Auto 0.2 /100WBC (0.0-0.2); Neutrophils Absolute Auto 8.9 x10*3/uL (2.0-8.3); Neutrophils Percent Auto 67.9 % (45-73); Platelet Count 413 X10*3/uL (160-400); Red Blood Count 2.85 X10*6/uL (4.20-5.50)
[2021-11-14 16:20] LABS: Free T4 (Free Thyroxine) 0.85 ng/dL (0.71-1.85); Thyroid Stimulating Hormone 0.89 uIU/mL (0.32-4.0); Vitamin D 25-OH Total 26.9 ng/mL (>30)
== END 2021-11-14 15:16 | disposition home or self-care (01) ==
LOC: HO.LAB 15:15
PROVIDERS: PCP Internal Medicine; Visit Provider Internal Medicine
DX: D64.9 Anemia, unspecified (principal); E55.9 Vitamin D deficiency, unspecified; R63.5 Abnormal weight gain
CPT/HCPCS: 36415; 80048; 82306; 83540; 84439; 84443; 85025

== ENCOUNTER 2021-12-20 10:07 | Outpatient (REF) | payer OTHER, SELFPAY ==
[2021-12-20 14:31] LABS: CT PCR NOT DETECTED (Not Detect.); NG PCR NOT DETECTED (Not Detect.)
[2021-12-21 09:20] LABS: BV Int Neg Control Negative (Negative); BV Int Pos Control Positive (Positive)
== END 2021-12-20 10:08 | disposition home or self-care (01) ==
LOC: HO.LAB 10:07
PROVIDERS: Visit Provider Advanced Practice Midwife
DX: Z01.419 Encounter for gynecological examination (general) (routine) without abnormal findings (principal); Z11.3 Encounter for screening for infections with a predominantly sexual mode of transmission
CPT/HCPCS: 87480; 87491; 87510; 87591; 87660

== ENCOUNTER 2022-02-04 09:55 | Outpatient (REF) | payer OTHER, SELFPAY ==
[2022-02-04 10:14] LABS: MANUAL DIFF FLAG NO
[2022-02-04 10:57] LABS: Basophils Absolute Auto 0.1 X10*3/uL (0.0-0.2); Basophils Percent Auto 0.6 % (0-2); Eosinophils Absolute Auto 0.5 X10*3/uL (0.0-0.4); Eosinophils Percent Auto 5.1 % (0-4); Hematocrit 36.7 % (37.0-47.0); Hemoglobin 11.1 g/dl (12.0-16.0); Imm Gran Abs Auto 0.04 X10*3/uL (0.00-0.03); Imm Gran Pct Auto 0.4 % (0.0-0.4); Lymphocytes Absolute Auto 2.4 X10*3/uL (1.2-4.9); Mean Corpuscular HGB Conc 30.2 g/dl (31.0-35.0); Mean Corpuscular Hemoglobin 24.3 pg (27.0-33.0); Mean Corpuscular Volume 80.3 fL (80.0-98.0); Mean Platelet Volume 12.1 fL (9.4-12.3); Monocytes Absolute Auto 0.6 X10*3/uL (0.1-1.2); Monocytes Percent Auto 6.4 % (2-11); Neutrophils Absolute Auto 6.3 x10*3/uL (2.0-8.3); Neutrophils Percent Auto 63.5 % (45-73); Platelet Count 281 X10*3/uL (160-400); Red Blood Count 4.57 X10*6/uL (4.20-5.50); White Blood Count 9.9 X10*3/uL (4.8-10.8)
[2022-02-04 11:32] LABS: Anion Gap 14 (12-20); Blood Urea Nitrogen 14 mg/dL (9-16); Calcium 9.2 mg/dL (8.4-10.2); Carbon Dioxide 24 mmol/L (22-29); Chloride 106 mmol/L (96-108); Estimated Glomerular Filt Rate > 60; Glucose Random 92 mg/dL (60-115); Iron 31 mcg/dL (30-160); Percent Iron Saturation 7 % (15-50); Potassium 4.5 mmol/L (3.3-5.1); Sodium 139 mmol/L (135-145); Total Iron Binding Capacity 426 mcg/dL (228-428); Unsaturated Iron Binding 395 ug/dL
[2022-02-04 11:55] LABS: HCG Quantitative < 2 mIU/mL; Vitamin D 25-OH Total 18.8 ng/mL (>30)
== END 2022-02-04 09:56 | disposition home or self-care (01) ==
LOC: HO.LAB 09:55
PROVIDERS: PCP Internal Medicine; Visit Provider Internal Medicine
DX: D64.9 Anemia, unspecified (principal); E55.9 Vitamin D deficiency, unspecified; N93.9 Abnormal uterine and vaginal bleeding, unspecified
CPT/HCPCS: 36415; 80048; 82306; 83540; 84702; 85025

== ENCOUNTER 2022-03-06 12:55 | Outpatient (REF) | payer OTHER, SELFPAY ==
--- NOTE | ~2022-03-06 | US_ITS ---
EXAMINATION: US PELVIS CLINICAL INFORMATION: Follow-up left ovarian cyst. COMPARISON: Previous pelvic ultrasound most recent October 2014 TECHNIQUE: Ultrasound of the pelvis is performed using both transabdominal and transvaginal transducers along with Doppler. Transvaginal imaging is performed due to inadequate visualization transabdominally. FINDINGS: The uterus is anteverted and measures 10 x 4.5 x 6.7 cm in dimension. No focal uterine lesion. Endometrial thickness is normal measuring 0.6 cm. There are small nabothian cysts in the cervix. The ovaries are normal. The right ovary measures 3.1 x 2.7 x 3.3 cm. The left ovary measures 2.7 x 2.7 x 2.5 cm. There is a 1.4 x 0.9 x 0.8 cm simple cyst in the left ovary. The previously identified 4.3 x 3.2 x 3 cm left ovarian cyst on October 2021 exam is no longer seen. There is no fluid in the pelvis. US/US pelvic and transvaginal IMPRESSION: Unremarkable exam.
== END 2022-03-06 12:56 | disposition home or self-care (01) ==
LOC: HO.HMGCX 12:55
PROVIDERS: PCP Internal Medicine; Visit Provider Advanced Practice Midwife
DX: N83.202 Unspecified ovarian cyst, left side (principal); N83.8 Other noninflammatory disorders of ovary, fallopian tube and broad ligament
CPT/HCPCS: 76830; 76856

== ENCOUNTER → 2022-03-26 08:50 | Outpatient (BNVA) | payer OTHER, SELFPAY | PROVIDERS: PCP Internal Medicine; Visit Provider Advanced Practice Midwife | DX: Z71.2 Person consulting for explanation of examination or test findings (principal); N93.9 Abnormal uterine and vaginal bleeding, unspecified | CPT/HCPCS: 99212 ==

== ENCOUNTER 2022-05-01 11:25 | Emergency (ER) | payer OTHER, SELFPAY | END 2022-05-01 16:05 | disposition left against medical advice (07) | PROVIDERS: Emergency Provider Emergency Medicine; PCP Internal Medicine | DX: Z20.828 Contact with and (suspected) exposure to other viral communicable diseases (principal) ==

== ENCOUNTER 2022-05-03 11:58 | Outpatient (REF) | payer OTHER, SELFPAY ==
[2022-05-03 14:22] LABS: MANUAL DIFF FLAG NO
[2022-05-03 14:29] LABS: Basophils Absolute Auto 0.1 X10*3/uL (0.0-0.2); Basophils Percent Auto 0.6 % (0-2); Eosinophils Absolute Auto 0.7 X10*3/uL (0.0-0.4); Hematocrit 35.5 % (37.0-47.0); Hemoglobin 10.9 g/dl (12.0-16.0); Imm Gran Abs Auto 0.08 X10*3/uL (0.00-0.03); Imm Gran Pct Auto 0.7 % (0.0-0.4); Lymphocytes Absolute Auto 2.5 X10*3/uL (1.2-4.9); Lymphocytes Percent Auto 22.5 % (20-40); Mean Corpuscular HGB Conc 30.7 g/dl (31.0-35.0); Mean Corpuscular Hemoglobin 25.1 pg (27.0-33.0); Mean Corpuscular Volume 81.8 fL (80.0-98.0); Mean Platelet Volume 12.2 fL (9.4-12.3); Monocytes Absolute Auto 0.7 X10*3/uL (0.1-1.2); Monocytes Percent Auto 6.3 % (2-11); Neutrophils Absolute Auto 7.1 x10*3/uL (2.0-8.3); Neutrophils Percent Auto 63.9 % (45-73); Platelet Count 304 X10*3/uL (160-400); Red Blood Count 4.34 X10*6/uL (4.20-5.50); Red Cell Distribution Width 16.4 % (11.0-16.0); White Blood Count 11.1 X10*3/uL (4.8-10.8)
[2022-05-03 14:38] LABS: Appearance Urine Clear; Color Urine Yellow; Glucose Urine UA Negative (Negative); Leukocyte Esterase Urine Negative (Negative); Nitrite Urine Negative (Negative); PH 5.5 (5.0-9.0); Specific Gravity - Urine 1.025 (1.005-1.025); Urine Blood Negative (Negative); Urine Ketones Negative (Negative); Urine Protein Negative (Neg-Trace)
[2022-05-03 15:09] LABS: Syphilis Screen Reactive (Nonreactive)
[2022-05-03 15:10] LABS: Alanine Aminotransferase 18 U/L (0-31); Albumin Level 4.1 g/dL (3.5-5.0); Alkaline Phosphatase 96 U/L (39-117); Anion Gap 12 (12-20); Aspartate Amino Transferase 14 U/L (5-31); Bilirubin Total 0.3 mg/dL (0.0-1.0); Blood Urea Nitrogen 11 mg/dL (9-16); Calcium 9.3 mg/dL (8.4-10.2); Carbon Dioxide 26 mmol/L (22-29); Chloride 105 mmol/L (96-108); Cholesterol 159 mg/dL; Estimated Glomerular Filt Rate > 60; Glucose Fasting 83 mg/dL (60-99); HDL Cholesterol 45 mg/dL; Iron 27 mcg/dL (30-160); LDL Cholesterol Calculated 95 mg/dl; Percent Iron Saturation 7 % (15-50); Potassium 4.6 mmol/L (3.3-5.1); Sodium 138 mmol/L (135-145); Total Iron Binding Capacity 366 mcg/dL (228-428); Total Protein 7.1 g/dL (6.5-8.0); Triglycerides 96 mg/dL; Unsaturated Iron Binding 339 ug/dL; Vitamin D 25-OH Total 13.9 ng/mL (>30)
[2022-05-03 16:58] LABS: CT PCR NOT DETECTED (Not Detect.); NG PCR NOT DETECTED (Not Detect.)
[2022-05-08 05:34] LABS: ~HepC Num1 0.06 S/CO (0.00-0.79); ~Hepatitis C Antibody Nonreactive (Nonreactive)
[2022-05-08 06:07] LABS: HIV AB/AG Nonreactive (Nonreactive); HIV Num 1 0.06 S/CO (0.00-0.99)
[2022-05-10 16:47] LABS: T.Pallidum Particle Agg Test Reactive (Nonreactive)
[2022-05-10 16:48] LABS: RPR Quantitative Non-Reactive (Nonreactive)
== END 2022-05-03 11:59 | disposition home or self-care (01) ==
LOC: HO.10HDL 11:58
PROVIDERS: Visit Provider Internal Medicine
DX: Z00.00 Encounter for general adult medical examination without abnormal findings (principal); Z11.4 Encounter for screening for human immunodeficiency virus [HIV]; Z11.3 Encounter for screening for infections with a predominantly sexual mode of transmission; E55.9 Vitamin D deficiency, unspecified
CPT/HCPCS: 36415; 80053; 80061; 81003; 82306; 83540; 85025; 86592; 86780; 86803; 87389; 87491; 87591

== ENCOUNTER 2022-12-03 10:23 | Outpatient (REF) | payer OTHER, SELFPAY ==
[2022-12-04 09:16] LABS: CT PCR NOT DETECTED (Not Detect.); NG PCR NOT DETECTED (Not Detect.)
== END 2022-12-03 10:24 | disposition home or self-care (01) ==
LOC: HO.LNP 10:23
PROVIDERS: PCP Internal Medicine; Visit Provider Advanced Practice Midwife
DX: R63.5 Abnormal weight gain (principal); N92.6 Irregular menstruation, unspecified; N92.0 Excessive and frequent menstruation with regular cycle; Z20.2 Contact with and (suspected) exposure to infections with a predominantly sexual mode of transmission; Z30.430 Encounter for insertion of intrauterine contraceptive device
CPT/HCPCS: 0353U; 58300; J7298

== ENCOUNTER 2023-01-14 10:09 | Outpatient (AMB) | payer OTHER, SELFPAY ==
[2023-01-14 10:15] VITALS: BP 116/80; BMI 34.6
--- NOTE | 2023-01-14 10:15 | A.OFFVIS_ITS ---
Intake Vital Signs 01/14/23 10:15 Height 5 ft 5 in Weight 208 lb BMI 34.6 BP 116/80 Intake Visit Reasons: 6 weeks IUD Intake Note: The patient agreed to use of a medical collector during this encounter. Scribed for MARILIA Moody by Karina Rudd medical collector, on 01/14/2023 at 10:35 am EST. Oil Separator: Oil Separator Present (Valarie) Allergies bee pollen [BEE STINGS] Allergy (Severe, Verified 01/14/23 10:15) SWELLING morphine Allergy (Severe, Verified 01/14/23 10:15) Anaphylaxis HPI HPI Comments History of Present Illness Details She is here today for IUD surveillance. She had the Mirena IUD placed on 12/03/22. Reports on and off VB with heavy clotting; wearing 3-4 menstrual pads on heavy days and 2-3 on light days. She believes VB increases due to high activities. 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 Gender identity: Male and Female Female Reproductive History Menstrual Age of Menarche: 12 control method: progestin IUCD (Mirena 12/03/22, IUD strings visible 01/14/23) and permanent sterilization Permanent Sterilization: BTL Physical Exam Vital Signs: Last Vital Signs BP 116/80 01/14/23 10:15 BMI result Body Mass Index 34.6 Const General: cooperative, healthy appearing, comfortable, no acute distress, well developed, alert and awake Other: General: Yes bladder normal to palpation External Female Exam: normal external appearance and normal appearance of the urethra Speculum Exam - Vagina: normal appearance of the vagina, normal palpation, normal vaginal discharge and vaginal bleeding (moderate) Speculum Exam - Cervix: normal appearance of the cervix, normal palpation and Other cervical findings present (IUD strings visible, no tip palpable ) Bimanual exam- vagina & uterus: normal bimanual exam, normal palpation, bladder normal to palpation and normal palpation Bimanual Exam- Adnexa, other: normal adnexae and no masses OB/external & speculum: vaginal bleeding (moderate) Assessment & Plan Assessment & Plan (1) IUD surveillance: Code(s): Z30.431 - Encounter for routine checking of intrauterine contraceptive device Plan: Discussed: Bleeding tends to taper down, some women do not bleed at all for months, some have unscheduled and random bleeding. Monitor bleeding and cramps for the next 3-6months and contact office with any concerns or questions. Follow up pending test results: US/labs in person. All of her questions and concerns were addressed to the best of my ability and shared decision making. She is agreeable to plan of care. (2) Abnormal uterine bleeding (AUB): Code(s): N93.9 - Abnormal uterine and vaginal bleeding, unspecified Plan: Pelvic US and blood work ordered. Follow up for results. (3) Anemia: Code(s): D64.9 - Anemia, unspecified Plan: Continue with Fe supplement, awaiting CBC results Orders: Orders US pelvic and transvaginal Today N92.6 - Irregular menstruation, unspecified, N93.9 - Abnormal uterine and vaginal bleeding, unspecified, Z30.431 - Encounter for routine checking of intrauterine contraceptive device Thyroid Stimulating Hormone Today N92.1 - Excessive and frequent menstruation with irregular cycle Complete Blood Count no Diff Today N93.9 - Abnormal uterine and vaginal bleeding, unspecified Coding Level of Care Code Est Pt Level 3 (87198) Diagnoses IUD surveillance Z30.431 Abnormal uterine bleeding (AUB) N93.9 Anemia D64.9
== END 2023-01-14 10:49 | disposition home or self-care (01) ==
LOC: HO.HWS 10:09
PROVIDERS: PCP Internal Medicine; Visit Provider Advanced Practice Midwife
DX: Z30.431 Encounter for routine checking of intrauterine contraceptive device (principal); N93.9 Abnormal uterine and vaginal bleeding, unspecified; D64.9 Anemia, unspecified
CPT/HCPCS: 99213

== ENCOUNTER 2023-01-14 10:09 | Outpatient (REF) | payer OTHER, SELFPAY ==
[2023-01-14 11:27] LABS: Hemoglobin 10.2 g/dl (12.0-16.0); Mean Corpuscular HGB Conc 30.9 g/dl (31.0-35.0); Mean Corpuscular Hemoglobin 24.5 pg (27.0-33.0); Mean Corpuscular Volume 79.3 fL (80.0-98.0); Mean Platelet Volume 11.1 fL (9.4-12.3); Platelet Count 295 X10*3/uL (160-400); Red Blood Count 4.16 X10*6/uL (4.20-5.50); Red Cell Distribution Width 15.4 % (11.0-16.0); White Blood Count 9.5 X10*3/uL (4.8-10.8)
[2023-01-14 12:35] LABS: Thyroid Stimulating Hormone 1.03 uIU/mL (0.32-4.0)
== END 2023-01-14 10:10 | disposition home or self-care (01) ==
LOC: HO.LAB 10:09
PROVIDERS: PCP Internal Medicine; Visit Provider Advanced Practice Midwife
DX: N92.1 Excessive and frequent menstruation with irregular cycle (principal); D64.9 Anemia, unspecified; Z30.431 Encounter for routine checking of intrauterine contraceptive device
CPT/HCPCS: 36415; 84443; 85027; 99212

== ENCOUNTER 2023-02-18 10:26 | Outpatient (REF) | payer OTHER, SELFPAY | END 2023-02-18 10:27 | disposition home or self-care (01) | LOC: HO.US 10:26 | PROVIDERS: PCP Internal Medicine; Visit Provider Advanced Practice Midwife | DX: Z30.431 Encounter for routine checking of intrauterine contraceptive device (principal); N92.6 Irregular menstruation, unspecified | CPT/HCPCS: 76830; 76856 ==

== ENCOUNTER 2023-03-04 09:00 | Outpatient (AMB) | payer OTHER, SELFPAY ==
--- NOTE | 2023-03-04 09:07 | MHC.OFFVIS ---
Intake Vital Signs 03/04/23 09:08 Height 5 ft 5 in Weight 208 lb BMI 34.6 BP 120/76 Intake Visit Reasons: US Follow up Intake Note: The patient agreed to use of a district medical examiner during this encounter. Scribed for MARILIA Moody by Karina Rudd district medical examiner, on 03/04/2023 at 9:25 am EST. Allergies bee pollen [BEE STINGS] Allergy (Severe, Verified 03/04/23 09:07) SWELLING morphine Allergy (Severe, Verified 03/04/23 09:07) Anaphylaxis Is last menstrual period known: Yes Last menstrual period: 02/13/23 HPI HPI Comments History of Present Illness Details She is here to discuss US results. Reports no AUB since US; VB has decreased to light flow. IUD in place. 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 COMPARISON: None available. TECHNIQUE: Ultrasound of the pelvis is performed using both transabdominal and transvaginal transducers along with Doppler. Transvaginal imaging is performed due to inadequate visualization transabdominally. FINDINGS: Uterus: The uterus is anteverted and measures 10.7 x 4.6 x 6.1 cm. The double wall endometrial thickness cannot be assessed as an intrauterine device is present in good position. The uterus is smooth in contour and has normal myometrial echogenicity. There is a small cystic area in the uterus measuring 4 x 3 x 6 mm in size that could be a tiny fibroid. Nabothian cysts are present in the cervix. Adnexa: Both ovaries are visualized. There is normal color flow to the adnexa. There is no ovarian torsion. There is no pelvic ascites or fluid collection. Right ovary measures 3.0 x 2.4 x 1.8 cm for a volume of 6.8 mL. Left ovary measures 5.0 x 3.4 x 3.8 cm for a volume of 33.8 mL which includes a 1.5 x 3.1 x 3.3 cm simple cyst. US/US pelvic and transvaginal IMPRESSION: 1. Intrauterine device in good position. 2. Tiny cystic area in the uterus could be a tiny fibroid. 3. Left ovarian simple cyst. No followup is needed. Assessment & Plan Assessment & Plan (1) Encounter to discuss test results: Code(s): Z71.2 - Person consulting for explanation of examination or test findings Plan: Discussed: US findings of: 1. Intrauterine device in good position. 2. Tiny cystic area in the uterus could be a tiny fibroid. 3. Left ovarian simple cyst. No followup is needed. Monitor VB. All of her questions and concerns were addressed to the best of my ability and shared decision making. She is agreeable to plan of care. RTO for AG 03/2023. (2) Uterine cyst: Code(s): N85.8 - Other specified noninflammatory disorders of uterus Plan: If experience increased prolonged pain report to office. If experience severe pain report to ED. (3) Left ovarian cyst: Code(s): N83.202 - Unspecified ovarian cyst, left side Plan: Monitor pain; if experience increased prolonged pain report to office. If experience severe pain report to ED. Coding Level of Care Code Est Pt Level 3 (92468) Diagnoses Encounter to discuss test results Z71.2 Uterine cyst N85.8 Left ovarian cyst N83.202
[2023-03-04 09:08] VITALS: BP 120/76; BMI 34.6
== END 2023-03-04 10:29 | disposition home or self-care (01) ==
PROVIDERS: PCP Internal Medicine; Visit Provider Advanced Practice Midwife
DX: Z71.2 Person consulting for explanation of examination or test findings (principal); N85.8 Other specified noninflammatory disorders of uterus; N83.202 Unspecified ovarian cyst, left side
CPT/HCPCS: 99213

== ENCOUNTER → 2023-03-04 09:00 | Outpatient (BNVA) | payer OTHER, SELFPAY | PROVIDERS: PCP Internal Medicine; Visit Provider Advanced Practice Midwife | DX: Z71.2 Person consulting for explanation of examination or test findings (principal); N85.8 Other specified noninflammatory disorders of uterus; N83.202 Unspecified ovarian cyst, left side | CPT/HCPCS: 99212 ==

== ENCOUNTER 2023-04-01 09:55 | Outpatient (REF) | payer OTHER, SELFPAY ==
[2023-04-01 13:49] LABS: CT PCR NOT DETECTED (Not Detect.); NG PCR NOT DETECTED (Not Detect.)
[2023-04-02 12:02] LABS: BV Int Neg Control Negative (Negative); BV Int Pos Control Positive (Positive)
== END 2023-04-01 09:56 | disposition home or self-care (01) ==
LOC: HO.LAB 09:55
PROVIDERS: PCP Internal Medicine; Visit Provider Advanced Practice Midwife
DX: Z01.419 Encounter for gynecological examination (general) (routine) without abnormal findings (principal); N76.0 Acute vaginitis; N64.4 Mastodynia; B96.89 Other specified bacterial agents as the cause of diseases classified elsewhere
CPT/HCPCS: 0353U; 87480; 87510; 87660; 99395

== ENCOUNTER 2023-04-01 09:55 | Outpatient (AMB) | payer OTHER, SELFPAY ==
--- NOTE | 2023-04-01 10:01 | MHC.OFFVIS ---
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 Doing well with obstetrics gyn concerns of vaginal odor. She also has complaints of tenderness to her bilateral breast. Pt reports that she thought she felt something on her right rib. She tries to eat healthy and stays active with exercise. Not sexually active, uses Mirena IUD for BC She denies vaginal itching and irritation. STI screening offered; she accepts. Denies family history of breast, ovarian or colon cancer. Last pap smear 11/17/2020, was negative. 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 [employer] Gender identity: Male and Female Female Reproductive History Menstrual Age of Menarche: 12 control method: progestin IUCD (Mirena 12/03/22) and permanent sterilization Permanent Sterilization: BTL Total pregnancies: 8 Full term: 5 Number of Living Children: 5 Ab induced: 1 Ab spontaneous: 2 Date of last pap smear: 11/17/20 (neg pap and hpv) Review of Systems Const All systems reviewed & are unremarkable except as noted in HPI and below Reports as per HPI Eyes Reports no additional complaints ENT Reports no additional complaints Card Reports no additional complaints Resp Reports no additional complaints GI Reports as per HPI and Reports no additional complaints Reports as per HPI Musc Reports no additional complaints Skin/Breast Reports as per HPI Neuro Reports no additional complaints Psych Reports no additional complaints Endo Reports no additional complaints Bradley/Lymph Reports no additional complaints Aller/Immun Reports no additional complaints Physical Exam Vital Signs: Last Vital Signs BP 112/76 04/01/23 10:03 BMI result Body Mass Index 35.3 Const General: cooperative, healthy appearing, no acute distress, well developed and alert Orientation/consciousness: patient oriented x3 HEENT Head: Yes normal to inspection Eyes General: appearance normal, both eyes and all related structures Neck Neck: Yes normal visual inspection Thyroid: Thyroid normal Chest Other: Bilateral breast tenderness, lumpy/bumpy @ Left breast 2 o'clock region, and @ Right breast 3 o'clock and additional the 8 - 9 o'clock position. Chest palpation & inspection: normal inspection of the chest and other (no puckering, dimpling, peau de orange, retraction, discharge, masses) Breast/axilla inspection: normal inspection of the breasts Breast/axilla palpation: normal palpation of the breasts Resp Effort & Inspection: normal respiratory effort GI Inspection: Yes normal to inspection Palpation (GI): Soft to palpation Rectal Exam - Female: deferred General: Yes bladder normal to palpation External Female Exam: normal external appearance and normal appearance of the urethra Speculum Exam - Vagina: normal appearance of the vagina, normal palpation and normal vaginal discharge Speculum Exam - Cervix: normal appearance of the cervix, normal palpation and Other cervical findings present (IUD strings in place ) Bimanual exam- vagina & uterus: normal bimanual exam, normal palpation, uterine size normal, bladder normal to palpation, normal palpation and non-tender Bimanual Exam- Adnexa, other: no masses Skin General skin exam: no rashes or lesions noted Rashes: no rashes Neuro General: patient oriented x3 Cognition (Neuro): normal cognition Extrem General: Yes normal to inspection Psych Attitude: cooperative Thought process: Normal thought process present Assessment & Plan Assessment & Plan (1) Encounter for annual routine gynecological examination: Code(s): Z01.419 - Encounter for gynecological examination (general) (routine) without abnormal findings Plan: Discussed: Current recommendations for pap smears per ASCCP guidelines. Breast awareness and periodic self breast exams. Maintaining a healthy lifestyle including a well balanced diet and routine exercise. Encouraged condom use for STD and prevention. Encouraged patient to sign up for patient portal. All of her questions and concerns were addressed to the best of my ability She will return in one year for AG. (2) BV (bacterial vaginosis): Code(s): N76.0 - Acute vaginitis; B96.89 - Other specified bacterial agents as the cause of diseases classified elsewhere (3) Pain of both breasts: Code(s): N64.4 - Mastodynia Plan: Will order a bilateral diagnostic mammogram and a bilateral ultrasound. Will follow up for test results. Orders: Orders US breast RT complete Today N63.0 - Unspecified lump in unspecified breast, N64.4 - Mastodynia MM tomosynthesis diagnostic BI Today N63.0 - Unspecified lump in unspecified breast, N64.4 - Mastodynia, Z12.31 - Encounter for screening mammogram for malignant neoplasm of breast Bacterial Vaginosis Panel Today B96.89 - Other specified bacterial agents as the cause of diseases classified elsewhere, N76.0 - Acute vaginitis, N89.8 - Other specified noninflammatory disorders of vagina CT NG by PCR Today B96.89 - Other specified bacterial agents as the cause of diseases classified elsewhere, N76.0 - Acute vaginitis, N89.8 - Other specified noninflammatory disorders of vagina US breast LT complete Today N63.20 - Unspecified lump in the left breast, unspecified quadrant, N64.4 - Mastodynia Coding Level of Care Code Est Pt Prev Care 18-39y(71534) Diagnoses Encounter for annual routine gynecological examination Z01.419 BV (bacterial vaginosis) N76.0; B96.89 Pain of both breasts N64.4
[2023-04-01 10:03] VITALS: BP 112/76; BMI 35.3
== END 2023-04-01 10:43 | disposition home or self-care (01) ==
LOC: HO.HWS 09:55
PROVIDERS: PCP Internal Medicine; Visit Provider Advanced Practice Midwife
DX: Z01.419 Encounter for gynecological examination (general) (routine) without abnormal findings (principal); N76.0 Acute vaginitis; B96.89 Other specified bacterial agents as the cause of diseases classified elsewhere; N64.4 Mastodynia
CPT/HCPCS: 99395

== ENCOUNTER 2023-04-01 10:26 | Outpatient (REF) | payer OTHER, SELFPAY | END 2023-04-01 10:27 | disposition home or self-care (01) | LOC: HO.LNP 10:26 | PROVIDERS: Visit Provider Advanced Practice Midwife | DX: Z13.89 Encounter for screening for other disorder (principal) ==

== ENCOUNTER → 2023-04-25 08:30 | Outpatient (BNV) | payer OTHER, SELFPAY | PROVIDERS: PCP Internal Medicine; Visit Provider Radiology Diagnostic Radiology | DX: N63.0 Unspecified lump in unspecified breast (principal) | CPT/HCPCS: 76642; 77062; 77066 ==

== ENCOUNTER 2023-04-25 09:34 | Outpatient (REF) | payer OTHER, SELFPAY ==
--- NOTE | ~2023-04-25 | MM_ITS ---
EXAMINATION: MM DIAGNOSTIC DIGITAL BREAST TOMOSYNTHESIS, BILATERAL US BREAST COMPLETE, BILATERAL MAMMOGRAPHY: CLINICAL INFORMATION: 37-year-old female complaining of palpable foci in the left breast at the 9 and 2:00 axes and similar palpable foci in the right breast in the 9 in 2:00 axes. COMPARISON: Mammography: Baseline examination no priors. TECHNIQUE: Digital breast tomosynthesis is performed in both the craniocaudal and mediolateral oblique views along with computer-aided detection (CAD). Synthesized 2D images are generated from the tomosynthesis. FINDINGS: The breasts are heterogeneously dense, which may obscure small masses (ACR BI-RADS breast composition Category c). Areas of palpable concern were marked by a technologist with the BB markers. No subjacent masses or other abnormalities noted in either breast to explain palpable foci. No mammographic correlates. There is a small group of milk of calcium in the central left breast with clear layering on the MLO view. These are benign. No additional suspicious calcifications. No masses, or regions of architectural distortion identified. ULTRASOUND: CLINICAL INFORMATION: 37-year-old female complaining of palpable foci in the left breast at the 9 and 2:00 axes and similar palpable foci in the right breast in the 9 in 2:00 axes. COMPARISON: None TECHNIQUE: High-resolution grayscale sonography of both breasts was performed, with specific attention to the regions of palpable concern. FINDINGS: RIGHT BREAST: There is a mixture of fatty and fibroglandular tissue. No suspicious solid or cystic lesion or area of suspicious echotexture is demonstrated. No cystic abnormalities. No masses or other abnormality subjacent to the BB markers. LEFT BREAST: There is a mixture of fatty and fibroglandular tissue. No suspicious solid or cystic lesion or area of suspicious echotexture is demonstrated. No cystic abnormalities. No masses or other abnormality subjacent to the BB markers. MM/MM tomosynthesis diagnostic BI IMPRESSION: No mammographic or sonographic evidence of malignancy in either breast. Palpable foci in both breasts show no underlying mammographic or sonographic abnormality. Recommend clinical management. Otherwise, recommend the patient resume annual screening mammography at age 42. OVERALL ASSESSMENT: Mammography: BI-RADS 1 - Negative Ultrasound: BI-RADS 1 - Negative RECOMMENDATION: Routine annual mammography screening. 1 year F/U This patient's information was entered into a reminder system with a target due date for their next mammogram.
== END 2023-04-25 09:35 | disposition home or self-care (01) ==
LOC: HO.MAMMO 09:34
PROVIDERS: PCP Internal Medicine; Visit Provider Advanced Practice Midwife
DX: N64.4 Mastodynia (principal); N63.21 Unspecified lump in the left breast, upper outer quadrant; N63.15 Unspecified lump in the right breast, overlapping quadrants; N63.13 Unspecified lump in the right breast, lower outer quadrant
CPT/HCPCS: 76642; 77062; 77066

== ENCOUNTER 2024-04-27 14:04 | Outpatient (REF) | payer OTHER, SELFPAY ==
[2024-04-27 15:37] LABS: Appearance Urine Clear; Color Urine Yellow; Glucose Urine UA Negative (Negative); Leukocyte Esterase Urine Negative (Negative); Nitrite Urine Negative (Negative); PH 5.5 (5.0-9.0); Specific Gravity - Urine 1.025 (1.005-1.025); Urine Blood Negative (Negative); Urine Ketones Negative (Negative); Urine Protein Negative (Neg-Trace)
== END 2024-04-27 14:05 | disposition home or self-care (01) ==
LOC: HO.LAB 14:04
PROVIDERS: PCP Internal Medicine; Visit Provider Internal Medicine
DX: R30.0 Dysuria (principal)
CPT/HCPCS: 81003; 87086

== ENCOUNTER 2024-05-17 14:07 | Outpatient (AMB) | payer OTHER, SELFPAY ==
[2024-05-17 14:15] VITALS: BP 112/70; BMI 35.4
--- NOTE | 2024-05-17 14:15 | A.OFFVIS_ITS ---
Vital Signs 05/17/24 14:15 Height 5 ft 5 in Weight 213 lb BMI 35.4 BP 112/70 Intake Visit Reasons: ? 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 Infection: Details: Called a couple of weeks ago to make this appointment she was feeling some discomfort down there. But when she called and described her symptoms she was also told to call her primary care provider who told her to come in and do a urine test which was negative for urinary tract infection since then her symptoms have improved and she does not have any problem now but since she is here she would like get checked for infection just to be sure.. She has a Mirena IU S which she says was inserted to manage abnormal bleeding but she does not really understand why is in her periods had been regular but she had had a couple of periods that lasted very long time she does not remember all the testing that was done prior to insertion of the Mirena but her periods have gotten spindle plumber though they still can last anywhere from 3-7 days but they are very light now. She is here with her youngest child who is 12 years old her oldest is 21 just had a baby 6 months ago. She had all of her babies with midwifery team here, at [facility], and she was sad to hear that the birthing center had closed. [facility] Medical History (Updated 05/17/24 @ 15:26 by Zonia Simpson CNM) Uterine cyst Left ovarian cyst Irregular menses Peripheral vision loss Abnormal uterine bleeding (AUB) Simple ovarian cyst Surgical History Hx of tubal ligation Family History Mother Diabetes Social History Household Members: Children Housing: House Alcohol intake: unknown Patient Tobacco Use Status: Current everyday Tobacco user Cigarettes Per Day: 3 Current occupational status: employed Current occupation: [employer] Gender identity: Male and Female Female Reproductive History Menstrual Age of Menarche: 12 Duration of menses: 3-5 days Date of last menstrual period: 05/11/24 control method: permanent sterilization Total pregnancies: 5 Full term: 5 Date of last pap smear: 11/21/20 (negative) History of abnormal pap smear: Yes (2013 [facility]) Physical Exam Vital Signs: Last Vital Signs BP 112/70 05/17/24 14:15 BMI result Body Mass Index 0.3 Other: Normal clear vagina here mucus consistent with just finished menses multiparous cervix parous with Mirena string easily visible. External Female Exam: normal external appearance and normal appearance of the urethra Speculum Exam - Vagina: normal appearance of the vagina and normal vaginal discharge Speculum Exam - Cervix: normal appearance of the cervix and Cervical os closed Results Reviewed Results Reviewed: Name: Aline Parnell Age/Sex: 35/F Attending: Liane South CNM : 1985 Submitted by: Liane South CNM Copies to: OTILIO MALDONADO MD MR #: [id number] Status: DEP REF Collected: 11/17/20 Location: .LAB Received: 11/21/20 Interpretation Satisfactory for evaluation. Coccobacilli consistent with shift in vaginal florina. Negative for intraepithelial lesion or malignancy. HPV mRNA E6/E7: NOT DETECTED This assay detects E6/E7 viral messenger RNA (mRNA) from 14 high-risk HPV types (16, 18, 31, 33, 35, 39, 45, 51, 52, 56, 58, 59, 66, 68) HPV testing performed by Wanova, [place], MD. See reference laboratory portion of the EMR for entire report. Clinical Information LMP: 11/07/20 Previous PAP test: 2013, abnormal Other history: Ascus Material Received ThinPrep Cervical Copies To OTILIO MALDONADO MD [address], [place] [address] [place] [address] Liane South CNM [address] [place] [address] Dr. DelA ngel [address] [place] [address] Electronically Signed By: KHOA Woodson (ASCP) 11/27/20 2650 The Pap Test is a screening procedure with the inherent possibility of both false negative and false positive results. Results should be interpreted in the context of historic and current clinical findings. Reliability of the Pap Test is enhanced by performing the test on a Patient: Page 1 of 2 Assessment & Plan Assessment & Plan (1) Abnormal uterine bleeding (AUB): Comment: Has resolved with use of the Mirena. Code(s): N93.9 - Abnormal uterine and vaginal bleeding, unspecified Category: Medical (2) Encounter for screening examination for sexually transmitted disease: Code(s): Z11.3 - Encounter for screening for infections with a predominantly sexual mode of transmission Category: Medical (3) IUD check up: Comment: Mirena IUS was inserted 12/03/2022 Liane South for AUB Code(s): Z30.431 - Encounter for routine checking of intrauterine contraceptive device Category: Medical (4) Pelvic pain in female: Comment: Resolved by the time of the visit. Code(s): R10.2 - Pelvic and perineal pain Category: Medical Plan Testing done for STIs is patient is here just to be sure. Discussed overall vaginal health she has noticed a big improvement since she has stopped using soaps and other products.. Discussed the factors involved with abnormal uterine bleeding and all the many possible contributing factors she had gained some weight the years so it is possible that was in fact a but a periods have improved nevertheless Mirena was placed.. She would be due for her next annual exam coming up in the near future. Pap smear done according to when it is due. Orders: Orders Bacterial Vaginosis Panel Today N89.8 - Other specified noninflammatory disorders of vagina CT NG by PCR Today N89.8 - Other specified noninflammatory disorders of vagina, Z20.2 - Contact with and (suspected) exposure to infections with a predominantly sexual mode of transmission Coding Level of Care Code Est Pt Level 3 (33771) Diagnoses Abnormal uterine bleeding (AUB) N93.9 Encounter for screening examination for sexually transmitted disease Z11.3 IUD check up Z30.431 Pelvic pain in female R10.2
== END 2024-05-17 15:17 | disposition home or self-care (01) ==
LOC: HO.HWSM 14:07
PROVIDERS: PCP Internal Medicine; Visit Provider Advanced Practice Midwife
DX: N93.9 Abnormal uterine and vaginal bleeding, unspecified (principal); R10.2 Pelvic and perineal pain; Z30.431 Encounter for routine checking of intrauterine contraceptive device
CPT/HCPCS: 99213; 99459

== ENCOUNTER 2024-05-17 14:07 | Outpatient (REF) | payer OTHER, SELFPAY ==
[2024-05-18 05:24] LABS: CT PCR NOT DETECTED (Not Detect.); NG PCR NOT DETECTED (Not Detect.)
[2024-05-18 08:40] LABS: Bacterial Vaginosis PCR POSITIVE (Negative); Candida Group PCR NOT DETECTED (Not Detect); Candida glab krusei PCR NOT DETECTED (Not Detect); Trichomonas vaginalis PCR NOT DETECTED (Not Detect)
== END 2024-05-17 14:08 | disposition home or self-care (01) ==
LOC: HO.LAB 14:07
PROVIDERS: PCP Internal Medicine; Visit Provider Advanced Practice Midwife
DX: N89.8 Other specified noninflammatory disorders of vagina (principal); Z20.2 Contact with and (suspected) exposure to infections with a predominantly sexual mode of transmission; Z11.3 Encounter for screening for infections with a predominantly sexual mode of transmission; N93.9 Abnormal uterine and vaginal bleeding, unspecified; Z30.431 Encounter for routine checking of intrauterine contraceptive device; R10.2 Pelvic and perineal pain
CPT/HCPCS: 0352U; 87491; 87591; 99212; 99459

== ENCOUNTER 2024-07-12 10:49 | Outpatient (REF) | payer OTHER, SELFPAY ==
[2024-07-12 12:20] LABS: Hematocrit 37.4 % (37.0-47.0); Hemoglobin 11.9 g/dl (12.0-16.0); Mean Corpuscular HGB Conc 31.8 g/dl (31.0-35.0); Mean Corpuscular Hemoglobin 27.1 pg (27.0-33.0); Mean Corpuscular Volume 85.2 fL (80.0-98.0); Mean Platelet Volume 11.2 fL (9.4-12.3); Platelet Count 289 X10*3/uL (160-400); Red Blood Count 4.39 X10*6/uL (4.20-5.50); Red Cell Distribution Width 14.3 % (11.0-16.0); White Blood Count 11.6 X10*3/uL (4.8-10.8)
[2024-07-12 13:08] LABS: HCG Quantitative < 2 mIU/mL; TSH reflex Free T4 1.25 uIU/mL (0.32-4.0)
[2024-07-13 11:48] LABS: CT PCR NOT DETECTED (Not Detect.); NG PCR NOT DETECTED (Not Detect.)
== END 2024-07-12 10:50 | disposition home or self-care (01) ==
LOC: HO.LNP 10:49
PROVIDERS: PCP Internal Medicine; Visit Provider Obstetrics & Gynecology
DX: N93.9 Abnormal uterine and vaginal bleeding, unspecified (principal); Z30.431 Encounter for routine checking of intrauterine contraceptive device
CPT/HCPCS: 81025; 84443; 84702; 85027; 87491; 87591; 99212; 99459

== ENCOUNTER 2024-07-12 10:49 | Outpatient (AMB) | payer MEDICAID, SELFPAY ==
--- NOTE | 2024-07-12 10:51 | MHC.OFFVIS ---
Vital Signs 07/12/24 10:58 Height 5 ft 5 in Weight 213 lb BMI 35.4 BP 110/76 Intake Visit Reasons: bleeding w/IUD Self Rising Flour Mixer Required: No Information Interpreted: non-clinical & clinical Estimator And Drafter Supervisor: Estimator And Drafter Supervisor Present (Jessica SHANE) Accompanied by: Self / Same As Patient Allergies bee pollen [BEE STINGS] Allergy (Severe, Verified 07/12/24 10:59) SWELLING morphine Allergy (Severe, Verified 07/12/24 10:59) Anaphylaxis Is last menstrual period known: No (mirena) HPI Comments Details: Presenting with continuous vaginal bleeding last 3 weeks on Mirena IUD. 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 Gender identity: Male and Female Female Reproductive History Menstrual Age of Menarche: 12 Review of Systems Const All systems reviewed & are unremarkable except as noted in HPI and below Card Reports as per HPI Resp Reports as per HPI GI Reports as per HPI and Reports no additional complaints Reports as per HPI Physical Exam Vital Signs: Last Vital Signs BP 110/76 07/12/24 10:58 BMI result Body Mass Index 35.4 Const General: cooperative, healthy appearing and comfortable Chest Chest palpation & inspection: normal inspection of the chest and normal palpation of entire chest wall Breast/axilla inspection: normal inspection of the breasts and normal inspection of the axillae Breast/axilla palpation: normal palpation of the breasts, normal palpation of the axillae and no axillary lymphadenopathy Resp Effort & Inspection: normal respiratory effort Auscultation: clear to auscultation bilaterally Percussion: percussion normal Cardio Palpation: normal PMI Rate: regular rate Rhythm: regular rhythm Heart sounds: no murmurs and no rubs Peripheral pulses: Peripheral pulses 2+ throughout GI Inspection: Yes normal to inspection Palpation (GI): Soft to palpation, nontender, no guarding, not rigid and No hepatosplenomegaly present Percussion: Yes normal to percussion Auscultation: normal bowel sounds Rectal Exam - Female: deferred General: Yes bladder normal to palpation External Female Exam: No lesion Speculum Exam - Vagina: normal appearance of the vagina, normal palpation, normal vaginal discharge and not erythematous Speculum Exam - Cervix: normal appearance of the cervix, normal palpation and Other cervical findings present (IUD string in place) Bimanual exam- vagina & uterus: normal bimanual exam, normal palpation, uterine size normal, bladder normal to palpation, consistency normal and normal palpation Bimanual Exam- Adnexa, other: normal adnexae, no masses and no tenderness Results AMB Test Urine AMB Test Urine Negative Last Edit by Jessica Hill CMA on 07/12/24 11:01 Results Reviewed Results Reviewed: Laboratory Last Values Tst Clinic Negative 07/12/24 11:01 Assessment & Plan Assessment & Plan (1) Abnormal uterine bleeding (AUB): Comment: With Mirena IUD Code(s): N93.9 - Abnormal uterine and vaginal bleeding, unspecified Category: Medical Plan: Urine test done in the office was negative. GC and chlamydia taken CBC, TSH, HCG, and pelvic ultrasound ordered. Discussed with the patient the different causes of abnormal bleeding including thyroid disorders, uterine and ovarian pathology, endometrial hyperplasia, carcinoma and other potential causes. Discussed with the patient the work up including CBC (to r/o anemia), TSH, pelvic Ultrasound, endometrial biopsy to r/o endometrial pathology. All questions answered and the patient verbalized understanding. Instructed the patient to schedule an appointment for an endometrial biopsy in 2 weeks. Orders: Orders AMB HCG Urine Test Today Z32.02 - Encounter for test, result negative CT NG by PCR Today Z30.431 - Encounter for routine checking of intrauterine contraceptive device Complete Blood Count no Diff Today N93.9 - Abnormal uterine and vaginal bleeding, unspecified HCG Quantitative Today N93.9 - Abnormal uterine and vaginal bleeding, unspecified US pelvic and transvaginal Today N93.9 - Abnormal uterine and vaginal bleeding, unspecified TSH reflex Free T4 Today N93.9 - Abnormal uterine and vaginal bleeding, unspecified Coding Level of Care Code Est Pt Level 3 (18554) Diagnoses Abnormal uterine bleeding (AUB) N93.9
[2024-07-12 10:58] VITALS: BP 110/76; BMI 35.4
== END 2024-07-12 12:21 | disposition home or self-care (01) ==
LOC: HO.HWS 10:49
PROVIDERS: PCP Internal Medicine; Visit Provider Obstetrics & Gynecology
DX: Z32.02 Encounter for pregnancy test, result negative (principal); N93.9 Abnormal uterine and vaginal bleeding, unspecified
CPT/HCPCS: 99213

== ENCOUNTER 2024-07-12 11:30 | Outpatient (REF) | payer OTHER, SELFPAY | END 2024-07-12 11:31 | disposition home or self-care (01) | LOC: HO.LAB 11:30 | PROVIDERS: PCP Internal Medicine; Visit Provider Obstetrics & Gynecology | DX: Z13.89 Encounter for screening for other disorder (principal) ==

== ENCOUNTER 2024-07-27 14:17 | Outpatient (REF) | payer OTHER, SELFPAY ==
--- NOTE | ~2024-07-27 | US_ITS ---
EXAMINATION: US PELVIS TRANSABDOMINAL AND TRANSVAGINAL HISTORY: N93.9 - Abnormal uterine and vaginal bleeding, unspecified COMPARISON: Comparison is made with the prior examination dated 02/18/2023. TECHNIQUE: Transabdominal and endovaginal real-time 2D coughlin-scale ultrasound was performed. FINDINGS: Uterus: The uterus is normal in size, measuring 10.7 x 5.0 x 6.5 cm. Myometrium has a normal echotexture. No fibroids are identified. Endometrium: An IUD is noted in the expected location in the endometrial cavity. The endometrial stripe measures 7 mm in thickness. Right ovary: The right ovary measures 3.6 x 2.5 x 1.7 cm. The right ovary is normal in size and echotexture. Left ovary: The left ovary measures 6.3 x 4.1 x 4.7 cm. There is a 5.2 x 3.7 by 4.2 cm cyst containing a 2.1 cm daughter cyst. Pelvic fluid: none. US/US pelvic and transvaginal IMPRESSION: 1. IUD in the expected position in the endometrial cavity. 2. 5.2 x 3.7 x 4.2 cm left ovarian cyst containing a 2.1 cm diameter cyst. Follow-up is recommended with repeat pelvic ultrasound in 6 weeks, at a different time in the patient's menstrual cycle. Electronically signed by: Taqueria Isidro MD 07/28/2024 07:14 AM EDT
--- OUTSIDE RECORDS SUMMARY | 2024-07-27 17:30 | XMS_ITS ---
Author Name [facility] Organization Unknown Encounters Encounter Type Encounter Reason Primary Diagnosis Location Date Ambulatory [facility]. ([facility]) 05/01/2022
== END 2024-07-27 14:18 | disposition home or self-care (01) ==
LOC: HO.HMGCX 14:17
PROVIDERS: PCP Internal Medicine; Visit Provider Obstetrics & Gynecology
DX: N93.9 Abnormal uterine and vaginal bleeding, unspecified (principal)
CPT/HCPCS: 76830; 76856

== ENCOUNTER → 2024-07-27 14:19 | Outpatient (BNV) | payer OTHER, SELFPAY | PROVIDERS: PCP Internal Medicine; Visit Provider Radiology Diagnostic Radiology | DX: N93.9 Abnormal uterine and vaginal bleeding, unspecified (principal); N83.202 Unspecified ovarian cyst, left side; Z97.5 Presence of (intrauterine) contraceptive device | CPT/HCPCS: 76830; 76856 ==

== ENCOUNTER 2024-09-14 09:51 | Outpatient (AMB) | payer OTHER, SELFPAY ==
[2024-09-14 10:32] VITALS: BMI 35.4
--- NOTE | 2024-09-14 10:32 | A.OFFVIS_ITS ---
Vital Signs 09/14/24 10:32 Height 5 ft 5 in Weight 213 lb BMI 35.4 Intake Visit Reasons: Ultra sound follow up/EMB Gore Cutter Required: No Information Interpreted: non-clinical & clinical Cnc Applications Engineer: Cnc Applications Engineer Present (Jessica SHANE) Accompanied by: Self / Same As Patient Allergies bee pollen [BEE STINGS] Allergy (Severe, Verified 09/14/24 10:33) SWELLING morphine Allergy (Severe, Verified 09/14/24 10:33) Anaphylaxis Is last menstrual period known: No HPI Comments Details: Presenting for EMB [facility] Medical History Uterine cyst Left ovarian cyst Irregular menses Peripheral vision loss Abnormal uterine bleeding (AUB) Simple ovarian cyst Surgical History Hx of tubal ligation Family History Mother Diabetes Social History Household Members: Children Housing: House Alcohol intake: unknown Patient Tobacco Use Status: Current everyday Tobacco user Cigarettes Per Day: 3 Current occupational status: employed 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[employer] Gender identity: Male and Female Female Reproductive History Menstrual Age of Menarche: 12 Review of Systems Const All systems reviewed & are unremarkable except as noted in HPI and below Reports as per HPI and Reports no additional complaints GI Reports no additional complaints Reports no additional complaints Physical Exam Vital Signs: BMI result Body Mass Index 35.4 Office Procedures Endometrial Biopsy Details: The patient was counseled regarding the indication and benefits of endometrial sampling to rule out endometrial pathology including not limited to endometrial hyperplasia or endometrial cancer and others; The alternatives (Either do nothing vs. hysteroscopy D&C) & the risks were discussed with the patient including but not limited: pain, uterine perforation, bleeding, infection, possible injury to bladder, bowel, ureter, possible need for blood transfusion with all its possible risks. The patient verbalized understanding all questions answered and signed consent. Urine test done in the office was negative The patient was placed into the dorsal lithotomy position; a speculum was inserted in the vagina. Using aseptic technique for the procedure, the cervix was cleansed with Betadine. The anterior lip of the cervix was grasped with a single tooth tenaculum. The uterus was sounded to 7 cm with a 4 mm Pipelle was used. Tissues samples were obtained and placed in formalin, in a patient labeled container and sent to the pathology department. At the end of the procedure, there was minimal bleeding noted The patient tolerated the procedure well and was discharged in good condition with the following instructions: Nothing in the vagina until the bleeding stops. No sex until the bleeding stops, to call if any of the following occurs: fever (>100.4), flu-like symptoms, abdominal pain, heavy bleeding, four smelling vaginal discharge. The patient was instructed to schedule a Follow up appointment in 2 weeks to discuss pathology results of the biopsy and treatment options. This note was generated with a voice recognition program. Some errors may have been overlooked during the review of this note. Sometimes these errors may affect the content or meaning of a given sentence. 32402-Iogvhzxesta Biopsy Assessment & Plan Assessment & Plan (1) Abnormal uterine bleeding (AUB): Comment: With Mirena IUD Code(s): N93.9 - Abnormal uterine and vaginal bleeding, unspecified Category: Medical Plan: EMB done, see procedure note Orders: Orders AMB Endometrial Biopsy Today N93.9 - Abnormal uterine and vaginal bleeding, unspecified Coding Level of Care Code Procedure Only Diagnoses Abnormal uterine bleeding (AUB) N93.9 CPT Codes Endometrial Biopsy - CPT: 76050-Xswydfsibsb Biopsy ([id number])
== END 2024-09-14 10:37 | disposition home or self-care (01) ==
LOC: HO.HWS 09:51
PROVIDERS: PCP Internal Medicine; Visit Provider Obstetrics & Gynecology
DX: N93.9 Abnormal uterine and vaginal bleeding, unspecified (principal); Z32.02 Encounter for pregnancy test, result negative
CPT/HCPCS: 58100

== ENCOUNTER 2024-09-14 09:51 | Outpatient (REF) | payer OTHER, SELFPAY | END 2024-09-14 09:52 | disposition home or self-care (01) | LOC: HO.LNP 09:51 | PROVIDERS: PCP Internal Medicine; Visit Provider Obstetrics & Gynecology | DX: N93.9 Abnormal uterine and vaginal bleeding, unspecified (principal); Z32.02 Encounter for pregnancy test, result negative | CPT/HCPCS: 58100; 81025; 88305 ==

== ENCOUNTER 2024-09-29 10:02 | Outpatient (AMB) | payer OTHER, SELFPAY ==
--- NOTE | 2024-09-29 10:02 | MHC.OFFVIS ---
Intake Visit Reasons: EMB results Steam Box Tender Required: No Information Interpreted: non-clinical & clinical Allergies bee pollen [BEE STINGS] Allergy (Severe, Verified 09/29/24 10:03) SWELLING morphine Allergy (Severe, Verified 09/29/24 10:03) Anaphylaxis Is last menstrual period known: No (jazzy) [facility] Comments Details: The patient is scheduled a telehealth visit for follow-up. The following workup was done.: H&H= 11.9/37.4 TSH, hCG, GC and chlamydia were negative. Endometrial biopsy pathology showed the following: Endometrium, biopsy: - Chronic endometritis. - Background inactive endometrium with patchy breakdown. - No atypia or hyperplasia identified Co testing was done in 12/06 was negative. Pelvic ultrasound showed the following: Uterus: The uterus is normal in size, measuring 10.7 x 5.0 x 6.5 cm. Myometrium has a normal echotexture. No fibroids are identified. Endometrium: An IUD is noted in the expected location in the endometrial cavity. The endometrial stripe measures 7 mm in thickness. Right ovary: The right ovary measures 3.6 x 2.5 x 1.7 cm. The right ovary is normal in size and echotexture. Left ovary: The left ovary measures 6.3 x 4.1 x 4.7 cm. There is a 5.2 x 3.7 by 4.2 cm cyst containing a 2.1 cm daughter cyst. Pelvic fluid: none. 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[employer] Gender identity: Male and Female Female Reproductive History Menstrual Age of Menarche: 12 Review of Systems Const All systems reviewed & are unremarkable except as noted in HPI and below Reports as per HPI and Reports no additional complaints GI Reports no additional complaints Reports no additional complaints Telehealth Telehealth Telehealth Platform: Telephone Location of provider rendering services: practice address Location of patient: address on file Patient Identification confirmed using: Name, : Yes Telehealth method: video Patient verbally consented to treatment: Yes Patient verbally consented to billing insurance company: Yes Patient informed of any privacy concerns related to visit: Yes Minutes spent on Phone/Video with Pt.: 3 Assessment & Plan Assessment & Plan (1) Abnormal uterine bleeding (AUB): Comment: With Mirena IUD Code(s): N93.9 - Abnormal uterine and vaginal bleeding, unspecified Category: Medical Plan: Discussed with the patient the results of the work up done and options of treatment including Lysteda, BCP's, stay on Mirena IUD, endometrial ablation and hysterectomy. All pros, cons, risks and benefits if each option was discussed with the patient and the patient decided to think about it and get back to us. All questions answered the patient verbalized understanding. (2) Left ovarian cyst: Code(s): N83.202 - Unspecified ovarian cyst, left side Category: Medical Plan: Discussed with the patient the left complex ovarian cyst by ultrasound. Discussed with the patient the Ultrasound findings, the main limitation of transvaginal ultrasonography alone as a diagnostic tool to distinguish benign from malignant masses relates to its lack of specificity and low positive predictive value for cancer. The differential diagnosis discussed with the patient includes the following but not limited to: benign and malignant gynecological and non-gynecological causes. Discussed with the patient options of treatment including laparoscopy ovarian cystectomy/oophorectomy vs. expectant management with repeat US in repeating pelvic US in 6-12 weeks from previous US. If the ovarian complex cyst is persistent larger and / or more complex looking will refer to gynecologic Oncology. All pros, cons, risks and benefits of each approach were discussed with the patient including but not limited to a delay in the diagnosis and treatment of ovarian cancer affecting the prognosis; The patient decided to go ahead with expectant management. Instructions given the patient to schedule a 3 months follow-up ultrasound appointment. All questions were answered & the patient verbalized understanding and agreed with the plan. I spent a total of 20 minutes reviewing the chart, talking to the patient via video and documenting in the medical record. Orders: Orders US pelvic and transvaginal 3 Months N83.202 - Unspecified ovarian cyst, left side Coding Level of Care Code Tele Est Pt Level 3 (70571) Diagnoses Abnormal uterine bleeding (AUB) N93.9 Left ovarian cyst N83.202
== END 2024-09-29 10:18 | disposition home or self-care (01) ==
LOC: HO.HWS 10:02
PROVIDERS: PCP Internal Medicine; Visit Provider Obstetrics & Gynecology
DX: N93.9 Abnormal uterine and vaginal bleeding, unspecified (principal); N83.202 Unspecified ovarian cyst, left side
CPT/HCPCS: 99213

== ENCOUNTER 2024-10-29 11:34 | Emergency (ER) | payer OTHER, SELFPAY ==
--- NOTE | ~2024-10-29 | CT_ITS ---
CLINICAL HISTORY: Left otitis externa, mastoid tenderness, neck --- Additional Notes or Special Instr uctions: Neck swelling Evaluate for abscess, mastoiditis CT soft tissue neck with contrast Comparison: None Findings: Mild fluid of the left-sided mastoid air cells as can be seen with simple effusion and reported mastoiditis. No bony destructive changes of the colitis and mastoiditis or complicated mastoiditis at this time. Moderate fluid also present in the left middle ear as can be seen with otitis and simple effusion. No periosteal bone changes or resulting drainable adjacent abscess by CT. Additional fluid and stranding including soft tissues adjacent to the left ear concerning for cellulitis and otitis. Mild phlegmonous change considered. No abscess greater than 1 cm or drainable abscess by CT. Mild nonspecific fullness of the pharynx without exophytic mass of the imaged aerodigestive tract. Bilateral cervical lymph nodes are nonspecific and likely reactive, left worse than right. Left level II lymph node measures 8 mm short axis (image 164 of series 3) with small adjacent clustered lymph nodes. Bilateral supraclavicular lymph nodes in the upper mediastinal lymph nodes are small, nonspecific, and likely reactive. Thyroid, submandibular, and parotid glands are unremarkable accounting for multiple periparotid lymph nodes. Fluid and mucosal thickening paranasal sinuses multifocal can be associated with sinusitis. No retrobulbar mass or drainable abscess in either orbit. Imaged brain is unremarkable for technique and field of view. Metal artifacts including from metal of the mouth in the right-sided nasal piercing. Reversal of the cervical lordosis. Mild atelectasis and motion of the imaged lung apices. IMPRESSION: 1. Fluid of the left middle ear and left mastoid air cells as can be seen with simple effusions and with otomastoiditis. No bony destructive changes of the coalescent mastoiditis or complicated mastoiditis at this time. 2. No drainable abscess by CT. 3. Cervical lymph nodes are likely reactive. This document has been electronically signed by: Mckinley Fulton MD on 10/29/2024 20:51:59
--- NOTE | 2024-10-29 12:27 | ED.GENADULT ---
HPI - General Adult General Chief complaint: Ear Problems Stated complaint: Bump inside L ear, facial swelling Time Seen by Provider: 10/29/24 17:14 Source: patient Mode of arrival: ambulatory Limitations: no limitations History of Present Illness ED Provider: Dr. Cortez Busby HPI narrative: 39-year-old female with no significant past medical history who presents emergency department for evaluation of left-sided ear and neck pain. Patient states she developed pain in her ear on 10/27/2024 (2 days prior). The pain got progressively worse so she went to an urgent care clinic. She states that at the urgent care clinic they noted a ?pimple? in her ear canal and they ?popped it?. She was given a prescription for doxycycline 100 mg q.12 hours in his taken 2 doses. Patient states that the your became more painful, red and swollen. She also developed pain traveling down her neck and pain with opening her mouth. She states the pain is severe in his greater than 10/10. She went to [facility] however secondary to the long wait she left and then came here to this emergency department. The patient denied headache, nausea, vomiting, fever or chills. She denied fatigue or weakness. The patient states she does use Q-tips daily on her ears that has never had an external ear infection. Related Data Home Medications ?Medication ?Instructions ?Recorded ?Confirmed levonorgestrel 21 mcg/24 hr (up to intrauterine 01/14/23 05/17/24 8 years) 52 mg intrauterine device (Mirena) Previous Rx's ?Medication ?Instructions ?Recorded ketorolac 10 mg tablet 10 mg PO TID PRN pain 5 days #15 10/29/24 tabs levofloxacin 500 mg tablet 500 mg PO DAILY #10 tabs 10/29/24 Allergies Allergy/AdvReac Type Severity Reaction Status Date / Time bee pollen [BEE STINGS] Allergy Severe SWELLING Verified 10/29/24 12:30 morphine Allergy Severe Anaphylaxis Verified 10/29/24 12:30 Review of Systems Review of Systems: Yes all other systems are reviewed and are negative [facility] Past Medical History Medical History Uterine cyst Left ovarian cyst Irregular menses Peripheral vision loss Abnormal uterine bleeding (AUB) Simple ovarian cyst Surgical History Hx of tubal ligation Family History Family History Mother Diabetes Social History Social History Household Members: Children Housing: House Alcohol intake: unknown Patient Tobacco Use Status: Current everyday Tobacco user Cigarettes Per Day: 3 Smoked in Last 30 Days: Yes Use of substances other than those prescribed or required for medical reasons: No Advance Directives: No Advance Directives Information Provided: Yes Current occupational status: employed 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[employer] Gender identity: Male and Female Physical Exam ED Vital Signs: Vital Signs - 24 hr 10/29/24 12:28 10/29/24 17:50 Temperature 98.7 F 98.1 F Pulse Rate 85 72 Respiratory Rate 18 18 Blood Pressure 123/77 128/79 Pulse Oximetry 100 99 Oxygen Delivery Method Room Air Room Air BMI result Body Mass Index 36.9 Vital signs normal Exam: General: Awake, alert in no distress Head: Normocephalic, atraumatic EENT: Patient has redness and swelling to her left ear, with significant tenderness palpation of her tragus, external auditory care is inflamed with yellowish discharge, patient has erythema behind her ear with increased warmth and significant tenderness palpation over her mastoid area. Neck: Supple, patient has tenderness palpation of her left side of her neck with tender adenopathy Lung: breath sounds symmetric, no wheezing, rales or rhonchi Chest: symmetric movement, nontender Heart: regular rate and rhythm, normal S1, S2 no murmurs or rubs Abdomen: soft, non-tender, nondistended, normal bowel sounds Back: no vertebral tenderness, no CVAT Extremities: no deformities, moves all extremities symmetrically Neuro: Awake, alert, oriented, normal speech, cranial nerves intact, moves all extremities symmetrically Psych: Pleasant, cooperative Course Course Course Narrative: This is an RME: Additional HPI, ROS, PE not included below will be deferred to primary provider. RME assessment and note performed by: Zhane Arora PA-C This is a [id number]-female who presents to the ER with concerns for left ear pain and left sided facial swelling. Went to urgent care and they told patient that there was a pimple in her left ear which was attempted to be popped with a stick with light in the urgent care. She was discharge on doxycycline and given muprocin ointment. She went to [facility] and [facility]. Significant left preauricular edema. Left auditory canal is swollen shut. unable to visualize. Reporting subjective fevers and chills. Plan: Labs, further ER eval needed Medications Administered Discontinued Medications Generic Name Dose Route Start Last Admin Trade Name Dadaq PRN Reason Stop Dose Admin Ceftriaxone Sodium 1 gm 10/29/24 17:34 10/29/24 18:16 Ceftriaxone Sodium 1 Gm Vial IVPUSH 10/29/24 17:35 1 gm ONCE ONE Administration Diphenhydramine HCl 50 mg 10/29/24 20:39 10/29/24 21:37 Diphenhydramine Hcl 50 Mg/Ml Vial IVPUSH 10/29/24 20:40 50 mg ONCE ONE Administration Hydromorphone HCl 1 mg 10/29/24 19:00 10/29/24 19:11 Hydromorphone Hcl 1 Mg/Ml Syringe IVPUSH 10/29/24 19:01 1 mg ONCE STA Administration Protocol Sodium Chloride 1,000 mls @ 999 mls/hr 10/29/24 17:26 10/29/24 19:14 Ns IV 10/29/24 18:26 Infused .Q1H1M STA Infusion Vancomycin HCl 2,000 mg in 500 mls @ 250 mls/hr 10/29/24 18:08 10/29/24 19:14 Vancomycin/Ns IV 10/29/24 20:07 250 mls/hr ONCE ONE Administration Iohexol 60 ml 10/29/24 20:02 10/29/24 20:02 Iohexol 350 Mg/Ml 100 Ml Infus..Btl IV 10/29/24 20:03 60 ml ONCE ONE Administration Ketorolac Tromethamine 15 mg 10/29/24 17:26 10/29/24 18:16 Ketorolac Tromethamine 15 Mg/Ml Vial IVPUSH 10/29/24 17:27 15 mg ONCE STA Administration Metoclopramide HCl 10 mg 10/29/24 20:39 10/29/24 21:37 Metoclopramide Hcl 10 Mg/2 Ml Vial IVPUSH 10/29/24 20:40 10 mg ONCE STA Administration Neomycin/Polymyxin/Hydrocortisone 4 drop 10/29/24 17:52 10/29/24 19:18 Neomycin/Polymyxin/Hc Otic Katty 10 Ml Drpbtl EAR-LEFT 10/29/24 17:53 4 drop ONCE ONE Administration Medical Decision Making Medical Decision Making [facility] Narrative: 39-year-old female with no significant past medical history who presents emergency department for evaluation of left-sided ear and neck pain. Patient states she developed pain in her ear on 10/27/2024 (2 days prior). The pain got progressively worse so she went to an urgent care clinic. She states that at the urgent care clinic they noted a ?pimple? in her ear canal and they ?popped it?. She was given a prescription for doxycycline 100 mg q.12 hours in his taken 2 doses. Patient states that her ear pain became more severe, she developed redness and swelling of her ear, she also noted a discharge from her left ear. The left ear pain travels down her left neck that has significant pain with opening her mouth. Her pain is greater than 10/10. She went to [facility] however secondary to the long wait she left . Your symptoms got worse therefore she came to our emergency department for evaluation. The patient denied headache, nausea, vomiting, fever or chills. She denied fatigue or weakness. Vital signs were normal. Physical examination revealed erythema and swelling of the patient's left ear with significant tenderness palpation over the tragus with swelling of the external auditory canal and discharge. Patient also has posterior erythema with swelling and tenderness over the left mastoid area. Patient also has left-sided neck tenderness. Differential diagnosis: ?Includes but is not limited to otitis externa, mastoiditis, left facial abscess, left neck abscess Course: 18:07 I ordered laboratory evaluation, CT soft tissue of the neck with IV contrast, Toradol 15 mg IV , normal saline x1 L, ceftriaxone 1 g and vancomycin 2 g IV 20:39 Patient got minimal improvement with IV Toradol and was given a dose of Dilaudid 1 mg IV with good relief for pain. Patient continues to complain of nausea therefore she was ordered Reglan 10 mg IV and Benadryl [address] scan of the patient's neck is pending. 10/29/24 [id number] Barbie Adamson MD I received sign-out from my colleague Dr. Busby CT scan of the mastoid show my fluid in the left mastoid, this could be either a simple effusion versus mastoiditis, no abscess that may be drainable I discussed the patient with ENT at [facility], Dr. Velasco she was able to visualize the CT scan. Overall, there is no periosteal destruction patient has already received IV vancomycin and ceftriaxone. Also patient received otic ceomycin/polymyxin I discussed with the patient that we will change her antibiotics. Patient instructed to discontinue taking doxycycline and start taking levofloxacin. When she will have better coverage for staph and Pseudomonas patient agrees with plan. Patient is to follow-up with her PCP. If there is no improvement, patient's PCP may refer her to ENT Admission/Observation Consideration of admission/observation: Escalation of care including admission/observation considered (Yes) Lab Data 10/29/24 18:04 10/29/24 18:03 Labs: Lab Results 10/29/24 10/29/24 10/29/24 Range/Units 18:03 18:03 18:03 WBC (4.8-10.8) X10*3/uL RBC (4.20-5.50) X10*6/uL Hgb (12.0-16.0) g/dl Hct (37.0-47.0) % MCV (80.0-98.0) fL MCH (27.0-33.0) pg MCHC (31.0-35.0) g/dl RDW (11.0-16.0) % Plt Count (160-400) X10*3/uL MPV (9.4-12.3) fL Immature Gran % (Auto) (0.0-0.4) % Neut % (Auto) (45-73) % Lymph % (Auto) (20-40) % [place] % (Auto) (2-11) % Eos % (Auto) (0-4) % Baso % (Auto) (0-2) % Lymph # (Auto) (1.2-4.9) X10*3/uL [place] # (Auto) (0.1-1.2) X10*3/uL Eos # (Auto) (0.0-0.4) X10*3/uL Baso # (Auto) (0.0-0.2) X10*3/uL Abs Immat Gran (auto) (0.00-0.03) X10*3/uL Absolute Neuts (auto) (2.0-8.3) x10*3/uL Absolute Nucleated RBC (0.0-0.012) X10*3/uL Nucleated RBC % (auto) (0.0-0.2) /100WBC ESR 38 H (0-20) MM/HR APTT 35.5 (26.0-36.8) SEC Sodium 138 137 (135-145) mmol/L Potassium 3.8 3.7 (3.3-5.1) mmol/L Chloride 103 (96-108) mmol/L Carbon Dioxide (22-29) mmol/L Anion Gap (12-20) BUN (9-16) mg/dL Creatinine (0.5-1.4) mg/dL Estim Creat Clear Calc Estimated GFR Random Glucose (60-115) mg/dL Lactic Acid (0.5-2.0) mmol/L Calcium (8.4-10.2) mg/dL Total Bilirubin (0.0-1.0) mg/dL AST (5-31) U/L ALT (0-31) U/L Alkaline Phosphatase (39-117) U/L C-Reactive Protein (< or = 0.50) mg/dL Total Protein (6.5-8.0) g/dL Albumin (3.5-5.0) g/dL Beta HCG, Quant mIU/mL 10/29/24 10/29/24 10/29/24 Range/Units 18:03 18:03 18:03 WBC (4.8-10.8) X10*3/uL RBC (4.20-5.50) X10*6/uL Hgb (12.0-16.0) g/dl Hct (37.0-47.0) % MCV (80.0-98.0) fL MCH (27.0-33.0) pg MCHC (31.0-35.0) g/dl RDW (11.0-16.0) % Plt Count (160-400) X10*3/uL MPV (9.4-12.3) fL Immature Gran % (Auto) (0.0-0.4) % Neut % (Auto) (45-73) % Lymph % (Auto) (20-40) % [place] % (Auto) (2-11) % Eos % (Auto) (0-4) % Baso % (Auto) (0-2) % Lymph # (Auto) (1.2-4.9) X10*3/uL [place] # (Auto) (0.1-1.2) X10*3/uL Eos # (Auto) (0.0-0.4) X10*3/uL Baso # (Auto) (0.0-0.2) X10*3/uL Abs Immat Gran (auto) (0.00-0.03) X10*3/uL Absolute Neuts (auto) (2.0-8.3) x10*3/uL Absolute Nucleated RBC (0.0-0.012) X10*3/uL Nucleated RBC % (auto) (0.0-0.2) /100WBC ESR (0-20) MM/HR APTT (26.0-36.8) SEC Sodium (135-145) mmol/L Potassium (3.3-5.1) mmol/L Chloride 104 (96-108) mmol/L Carbon Dioxide 26 25 (22-29) mmol/L Anion Gap 13 12 (12-20) BUN 5 L (9-16) mg/dL Creatinine (0.5-1.4) mg/dL Estim Creat Clear Calc Estimated GFR Random Glucose (60-115) mg/dL Lactic Acid (0.5-2.0) mmol/L Calcium (8.4-10.2) mg/dL Total Bilirubin (0.0-1.0) mg/dL AST (5-31) U/L ALT (0-31) U/L Alkaline Phosphatase (39-117) U/L C-Reactive Protein (< or = 0.50) mg/dL Total Protein (6.5-8.0) g/dL Albumin (3.5-5.0) g/dL Beta HCG, Quant mIU/mL 10/29/24 10/29/24 10/29/24 Range/Units 18:03 18:03 18:03 WBC (4.8-10.8) X10*3/uL RBC (4.20-5.50) X10*6/uL Hgb (12.0-16.0) g/dl Hct (37.0-47.0) % MCV (80.0-98.0) fL MCH (27.0-33.0) pg MCHC (31.0-35.0) g/dl RDW (11.0-16.0) % Plt Count (160-400) X10*3/uL MPV (9.4-12.3) fL Immature Gran % (Auto) (0.0-0.4) % Neut % (Auto) (45-73) % Lymph % (Auto) (20-40) % [place] % (Auto) (2-11) % Eos % (Auto) (0-4) % Baso % (Auto) (0-2) % Lymph # (Auto) (1.2-4.9) X10*3/uL [place] # (Auto) (0.1-1.2) X10*3/uL Eos # (Auto) (0.0-0.4) X10*3/uL Baso # (Auto) (0.0-0.2) X10*3/uL Abs Immat Gran (auto) (0.00-0.03) X10*3/uL Absolute Neuts (auto) (2.0-8.3) x10*3/uL Absolute Nucleated RBC (0.0-0.012) X10*3/uL Nucleated RBC % (auto) (0.0-0.2) /100WBC ESR (0-20) MM/HR APTT (26.0-36.8) SEC Sodium (135-145) mmol/L Potassium (3.3-5.1) mmol/L Chloride (96-108) mmol/L Carbon Dioxide (22-29) mmol/L Anion Gap (12-20) BUN 5 L (9-16) mg/dL Creatinine 0.72 0.70 (0.5-1.4) mg/dL Estim Creat Clear Calc 121.2 124.7 Estimated GFR > 60 Random Glucose (60-115) mg/dL Lactic Acid (0.5-2.0) mmol/L Calcium (8.4-10.2) mg/dL Total Bilirubin (0.0-1.0) mg/dL AST (5-31) U/L ALT (0-31) U/L Alkaline Phosphatase (39-117) U/L C-Reactive Protein (< or = 0.50) mg/dL Total Protein (6.5-8.0) g/dL Albumin (3.5-5.0) g/dL Beta HCG, Quant mIU/mL 10/29/24 10/29/24 10/29/24 Range/Units 18:03 18:03 18:03 WBC (4.8-10.8) X10*3/uL RBC (4.20-5.50) X10*6/uL Hgb (12.0-16.0) g/dl Hct (37.0-47.0) % MCV (80.0-98.0) fL MCH (27.0-33.0) pg MCHC (31.0-35.0) g/dl RDW (11.0-16.0) % Plt Count (160-400) X10*3/uL MPV (9.4-12.3) fL Immature Gran % (Auto) (0.0-0.4) % Neut % (Auto) (45-73) % Lymph % (Auto) (20-40) % [place] % (Auto) (2-11) % Eos % (Auto) (0-4) % Baso % (Auto) (0-2) % Lymph # (Auto) (1.2-4.9) X10*3/uL [place] # (Auto) (0.1-1.2) X10*3/uL Eos # (Auto) (0.0-0.4) X10*3/uL Baso # (Auto) (0.0-0.2) X10*3/uL Abs Immat Gran (auto) (0.00-0.03) X10*3/uL Absolute Neuts (auto) (2.0-8.3) x10*3/uL Absolute Nucleated RBC (0.0-0.012) X10*3/uL Nucleated RBC % (auto) (0.0-0.2) /100WBC ESR (0-20) MM/HR APTT (26.0-36.8) SEC Sodium (135-145) mmol/L Potassium (3.3-5.1) mmol/L Chloride (96-108) mmol/L Carbon Dioxide (22-29) mmol/L Anion Gap (12-20) BUN (9-16) mg/dL Creatinine (0.5-1.4) mg/dL Estim Creat Clear Calc Estimated GFR > 60 Random Glucose 87 86 (60-115) mg/dL Lactic Acid 1.1 (0.5-2.0) mmol/L Calcium 9.7 9.7 (8.4-10.2) mg/dL Total Bilirubin 0.5 (0.0-1.0) mg/dL AST (5-31) U/L ALT (0-31) U/L Alkaline Phosphatase (39-117) U/L C-Reactive Protein (< or = 0.50) mg/dL Total Protein (6.5-8.0) g/dL Albumin (3.5-5.0) g/dL Beta HCG, Quant mIU/mL 10/29/24 10/29/24 10/29/24 Range/Units 18:03 18:03 18:03 WBC (4.8-10.8) X10*3/uL RBC (4.20-5.50) X10*6/uL Hgb (12.0-16.0) g/dl Hct (37.0-47.0) % MCV (80.0-98.0) fL MCH (27.0-33.0) pg MCHC (31.0-35.0) g/dl RDW (11.0-16.0) % Plt Count (160-400) X10*3/uL MPV (9.4-12.3) fL Immature Gran % (Auto) (0.0-0.4) % Neut % (Auto) (45-73) % Lymph % (Auto) (20-40) % [place] % (Auto) (2-11) % Eos % (Auto) (0-4) % Baso % (Auto) (0-2) % Lymph # (Auto) (1.2-4.9) X10*3/uL [place] # (Auto) (0.1-1.2) X10*3/uL Eos # (Auto) (0.0-0.4) X10*3/uL Baso # (Auto) (0.0-0.2) X10*3/uL Abs Immat Gran (auto) (0.00-0.03) X10*3/uL Absolute Neuts (auto) (2.0-8.3) x10*3/uL Absolute Nucleated RBC (0.0-0.012) X10*3/uL Nucleated RBC % (auto) (0.0-0.2) /100WBC ESR (0-20) MM/HR APTT (26.0-36.8) SEC Sodium (135-145) mmol/L Potassium (3.3-5.1) mmol/L Chloride (96-108) mmol/L Carbon Dioxide (22-29) mmol/L Anion Gap (12-20) BUN (9-16) mg/dL Creatinine (0.5-1.4) mg/dL Estim Creat Clear Calc Estimated GFR Random Glucose (60-115) mg/dL Lactic Acid (0.5-2.0) mmol/L Calcium (8.4-10.2) mg/dL Total Bilirubin 0.5 (0.0-1.0) mg/dL AST 20 21 (5-31) U/L ALT 23 24 (0-31) U/L Alkaline Phosphatase 107 (39-117) U/L C-Reactive Protein (< or = 0.50) mg/dL Total Protein (6.5-8.0) g/dL Albumin (3.5-5.0) g/dL Beta HCG, Quant mIU/mL 10/29/24 10/29/24 10/29/24 Range/Units 18:03 18:03 18:03 WBC (4.8-10.8) X10*3/uL RBC (4.20-5.50) X10*6/uL Hgb (12.0-16.0) g/dl Hct (37.0-47.0) % MCV (80.0-98.0) fL MCH (27.0-33.0) pg MCHC (31.0-35.0) g/dl RDW (11.0-16.0) % Plt Count (160-400) X10*3/uL MPV (9.4-12.3) fL Immature Gran % (Auto) (0.0-0.4) % Neut % (Auto) (45-73) % Lymph % (Auto) (20-40) % [place] % (Auto) (2-11) % Eos % (Auto) (0-4) % Baso % (Auto) (0-2) % Lymph # (Auto) (1.2-4.9) X10*3/uL [place] # (Auto) (0.1-1.2) X10*3/uL Eos # (Auto) (0.0-0.4) X10*3/uL Baso # (Auto) (0.0-0.2) X10*3/uL Abs Immat Gran (auto) (0.00-0.03) X10*3/uL Absolute Neuts (auto) (2.0-8.3) x10*3/uL Absolute Nucleated RBC (0.0-0.012) X10*3/uL Nucleated RBC % (auto) (0.0-0.2) /100WBC ESR (0-20) MM/HR APTT (26.0-36.8) SEC Sodium (135-145) mmol/L Potassium (3.3-5.1) mmol/L Chloride (96-108) mmol/L Carbon Dioxide (22-29) mmol/L Anion Gap (12-20) BUN (9-16) mg/dL Creatinine (0.5-1.4) mg/dL Estim Creat Clear Calc Estimated GFR Random Glucose (60-115) mg/dL Lactic Acid (0.5-2.0) mmol/L Calcium (8.4-10.2) mg/dL Total Bilirubin (0.0-1.0) mg/dL AST (5-31) U/L ALT (0-31) U/L Alkaline Phosphatase 106 (39-117) U/L C-Reactive Protein 2.85 H (< or = 0.50) mg/dL Total Protein 8.0 7.9 (6.5-8.0) g/dL Albumin 4.7 4.6 (3.5-5.0) g/dL Beta HCG, Quant < 2 mIU/mL 10/29/24 Range/Units 18:04 WBC 16.4 H (4.8-10.8) X10*3/uL RBC 4.47 (4.20-5.50) X10*6/uL Hgb 12.5 (12.0-16.0) g/dl Hct 37.2 (37.0-47.0) % MCV 83.2 (80.0-98.0) fL MCH 28.0 (27.0-33.0) pg MCHC 33.6 (31.0-35.0) g/dl RDW 14.2 (11.0-16.0) % Plt Count 263 (160-400) X10*3/uL MPV 11.6 (9.4-12.3) fL Immature Gran % (Auto) 0.5 H (0.0-0.4) % Neut % (Auto) 69.7 (45-73) % Lymph % (Auto) 19.2 L (20-40) % [place] % (Auto) 5.7 (2-11) % Eos % (Auto) 4.5 H (0-4) % Baso % (Auto) 0.4 (0-2) % Lymph # (Auto) 3.2 (1.2-4.9) X10*3/uL [place] # (Auto) 0.9 (0.1-1.2) X10*3/uL Eos # (Auto) 0.7 H (0.0-0.4) X10*3/uL Baso # (Auto) 0.1 (0.0-0.2) X10*3/uL Abs Immat Gran (auto) 0.09 H (0.00-0.03) X10*3/uL Absolute Neuts (auto) 11.4 H (2.0-8.3) x10*3/uL Absolute Nucleated RBC 0.000 (0.0-0.012) X10*3/uL Nucleated RBC % (auto) 0.0 (0.0-0.2) /100WBC ESR (0-20) MM/HR APTT (26.0-36.8) SEC Sodium (135-145) mmol/L Potassium (3.3-5.1) mmol/L Chloride (96-108) mmol/L Carbon Dioxide (22-29) mmol/L Anion Gap (12-20) BUN (9-16) mg/dL Creatinine (0.5-1.4) mg/dL Estim Creat Clear Calc Estimated GFR Random Glucose (60-115) mg/dL Lactic Acid (0.5-2.0) mmol/L Calcium (8.4-10.2) mg/dL Total Bilirubin (0.0-1.0) mg/dL AST (5-31) U/L ALT (0-31) U/L Alkaline Phosphatase (39-117) U/L C-Reactive Protein (< or = 0.50) mg/dL Total Protein (6.5-8.0) g/dL Albumin (3.5-5.0) g/dL Beta HCG, Quant mIU/mL Critical Care Time Critical Care Time Critical Care Time: Yes Total Critical Care Time: 60 Attestation: I have personally provided critical care time. Time includes review of lab data, radiology results, discussion with consultants, and monitoring for potential decompensation. Intervention performed as documented. Discharge Plan Discharge Clinical Impression: Otitis externa, Otitis media Patient Disposition: Home, Self-Care Instructions: Ear Infection (ED) Additional Instructions: Please follow-up with your primary care physician tomorrow. If you have any worsening or new symptoms, please return to the emergency room or call 911 Prescriptions: New levofloxacin 500 mg tablet 500 mg PO DAILY Qty: 10 0RF ketorolac 10 mg tablet 10 mg PO TID PRN (Reason: pain) 5 Days Qty: 15 0RF Rx Instructions: do not use this medication with NSAIDs, only Tylenol if needed No Action Mirena 21 mcg/24 hours (8 yrs) 52 mg intrauterine device intrauterine Stand Alone Forms: Work/School Release Print Language: Arabic
[2024-10-29 12:28] VITALS: BP 123/77; PULSE 85; RESP 18; TEMP 37.1; O2SAT 100; BMI 36.9
[2024-10-29 17:50] VITALS: BP 128/79; PULSE 72; RESP 18; TEMP 36.7; O2SAT 99
[2024-10-29 18:12] LABS: MANUAL DIFF FLAG NO
[2024-10-29] MEDS: 0.9 % Sodium Chloride 1,000 ML 999 ML IV (18:13)
[2024-10-29] MEDS: Ketorolac Tromethamine 15 MG/ML VIAL IVPUSH (18:16)
[2024-10-29] MEDS: cefTRIAXone sodium 1 GM VIAL IVPUSH (18:16)
[2024-10-29 18:18] LABS: Basophils Absolute Auto 0.1 X10*3/uL (0.0-0.2); Basophils Percent Auto 0.4 % (0-2); Eosinophils Absolute Auto 0.7 X10*3/uL (0.0-0.4); Eosinophils Percent Auto 4.5 % (0-4); Hematocrit 37.2 % (37.0-47.0); Hemoglobin 12.5 g/dl (12.0-16.0); Imm Gran Abs Auto 0.09 X10*3/uL (0.00-0.03); Imm Gran Pct Auto 0.5 % (0.0-0.4); Lymphocytes Absolute Auto 3.2 X10*3/uL (1.2-4.9); Lymphocytes Percent Auto 19.2 % (20-40); Mean Corpuscular HGB Conc 33.6 g/dl (31.0-35.0); Mean Corpuscular Volume 83.2 fL (80.0-98.0); Mean Platelet Volume 11.6 fL (9.4-12.3); Monocytes Absolute Auto 0.9 X10*3/uL (0.1-1.2); Monocytes Percent Auto 5.7 % (2-11); Neutrophils Absolute Auto 11.4 x10*3/uL (2.0-8.3); Neutrophils Percent Auto 69.7 % (45-73); Platelet Count 263 X10*3/uL (160-400); Red Blood Count 4.47 X10*6/uL (4.20-5.50); Red Cell Distribution Width 14.2 % (11.0-16.0); White Blood Count 16.4 X10*3/uL (4.8-10.8)
[2024-10-29 18:28] LABS: Alanine Aminotransferase 23 U/L (0-31); Albumin Level 4.7 g/dL (3.5-5.0); Alkaline Phosphatase 107 U/L (39-117); Anion Gap 13 (12-20); Aspartate Amino Transferase 20 U/L (5-31); Bilirubin Total 0.5 mg/dL (0.0-1.0); Blood Urea Nitrogen 5 mg/dL (9-16); Calcium 9.7 mg/dL (8.4-10.2); Carbon Dioxide 26 mmol/L (22-29); Chloride 103 mmol/L (96-108); Creatinine Clr Calc Pharmacy 121.2; Estimated Glomerular Filt Rate > 60; Glucose Random 87 mg/dL (60-115); Potassium 3.8 mmol/L (3.3-5.1); Sodium 138 mmol/L (135-145)
[2024-10-29 18:29] LABS: Alanine Aminotransferase 24 U/L (0-31); Albumin Level 4.6 g/dL (3.5-5.0); Alkaline Phosphatase 106 U/L (39-117); Anion Gap 12 (12-20); Aspartate Amino Transferase 21 U/L (5-31); Bilirubin Total 0.5 mg/dL (0.0-1.0); Blood Urea Nitrogen 5 mg/dL (9-16); C Reactive Protein 2.85 mg/dL (< or = 0.50); Calcium 9.7 mg/dL (8.4-10.2); Carbon Dioxide 25 mmol/L (22-29); Chloride 104 mmol/L (96-108); Creatinine Clr Calc Pharmacy 124.7; Estimated Glomerular Filt Rate > 60; Glucose Random 86 mg/dL (60-115); Potassium 3.7 mmol/L (3.3-5.1); Sodium 137 mmol/L (135-145); Total Protein 7.9 g/dL (6.5-8.0)
[2024-10-29 18:30] LABS: Lactic Acid 1.1 mmol/L (0.5-2.0)
[2024-10-29 18:37] LABS: HCG Quantitative < 2 mIU/mL
[2024-10-29 18:43] LABS: Partial Thromboplastin Time 35.5 SEC (26.0-36.8)
[2024-10-29 19:04] LABS: Erythrocyte Sedimentation Rate 38 MM/HR (0-20)
[2024-10-29] MEDS: HYDROmorphone HCl 1 MG/ML SYRINGE IVPUSH (19:11)
[2024-10-29] MEDS: vancomycin/NS 2,000 MG/500 ML PLAST..BAG 250 MG IV (19:14)
[2024-10-29] MEDS: NeoMYCIN/Polymyxin/HC Otic Sus 10 ML DRPBTL 4 DROP EAR-LEFT (19:18)
[2024-10-29] MEDS: iohexoL 350 MG/ML 100 ML INFUS..BTL 60 ML IV (20:02)
[2024-10-29] MEDS: diphenhydrAMINE HCL 50 MG/ML VIAL IVPUSH (21:37)
[2024-10-29] MEDS: Metoclopramide HCl 10 MG/2 ML VIAL IVPUSH (21:37)
[2024-10-29 23:43] VITALS: BP 106/50; PULSE 75; RESP 18; TEMP 37; O2SAT 96
== END 2024-10-29 23:44 | disposition home or self-care (01) ==
PROVIDERS: Emergency Medicine Emergency Medical Services; Physician Assistant Medical; Emergency Provider Emergency Medicine
DX: H66.92 Otitis media, unspecified, left ear (principal); H60.92 Unspecified otitis externa, left ear; M54.2 Cervicalgia; H92.02 Otalgia, left ear
CPT/HCPCS: 36415; 70491; 80053; 83605; 84702; 85025; 85652; 85730; 86140; 87040; 96361; 96365; 96366; 96375; 99285; J0696; J1171; J1200; J1885; J2765; J3370; Q9967

== ENCOUNTER → 2024-10-29 17:26 | Outpatient (BNV) | payer OTHER, SELFPAY | PROVIDERS: Emergency Provider Emergency Medicine Emergency Medical Services; Visit Provider Radiology Neuroradiology | DX: R59.0 Localized enlarged lymph nodes (principal) | CPT/HCPCS: 70491 ==

== ENCOUNTER 2024-12-30 16:32 | Outpatient (REF) | payer OTHER, SELFPAY ==
--- NOTE | ~2024-12-30 | US_ITS ---
EXAMINATION: US PELVIS CLINICAL INFORMATION: Slight ovarian cyst. COMPARISON: None available. TECHNIQUE: Ultrasound of the pelvis is performed using both transabdominal and transvaginal transducers along with Doppler. Transvaginal imaging is performed due to inadequate visualization transabdominally. FINDINGS: Uterus: The uterus is anteverted , anteflexed and measures 9.5 x 4.4 x 6.8 cm. There is an intrauterine contraceptive device noted with endometrial thickness is not visualized. There is a trace fluid within the cervix. The uterus is smooth in contour and has normal myometrial echogenicity. No visible fibroid. Adnexa: Both ovaries are visualized. There is normal color flow to the adnexa. There is no ovarian torsion. There is no pelvic ascites or fluid collection. Right ovary measures 5.4 x 4.3 x 4.4 cm. Volume 53.4 mL. There is a complex cyst measuring 5.1 x 3.5 x 4.1 cm with likely smaller daughter cyst or septation within. Left ovary measures 3.3 x 2.1 x 2.2 cm. Volume 8.0 ml. There is a anechoic cyst measuring 2.2 x 1.1 x 1.1 cm. Normal arterial and venous flow seen on to both ovaries on Doppler exam. There is no free fluid in the cul-de-sac. US/US pelvic and transvaginal IMPRESSION: Complex cyst right ovary with likely a small daughter cyst or septation within . Simple cyst left ovary. IUD within endometrial canal in good position. The uterus otherwise is unremarkable. Electronically signed by: Kj Cardenas MD 12/31/2024 07:08 AM EDT
--- OUTSIDE RECORDS SUMMARY | 2024-12-30 16:34 | XMS_ITS ---
Author Name [facility] Organization Unknown Encounters Encounter Type Encounter Reason Primary Diagnosis Location Date Ambulatory [facility], [facility]. ([facility]) 05/01/2022
== END 2024-12-30 16:33 | disposition home or self-care (01) ==
LOC: HO.US 16:32
PROVIDERS: Visit Provider Obstetrics & Gynecology
DX: N83.202 Unspecified ovarian cyst, left side (principal)
CPT/HCPCS: 76830; 76856

== ENCOUNTER → 2024-12-30 16:34 | Outpatient (BNV) | payer OTHER, SELFPAY | PROVIDERS: Visit Provider Radiology Diagnostic Radiology | DX: N83.292 Other ovarian cyst, left side (principal); N83.291 Other ovarian cyst, right side | CPT/HCPCS: 76830; 76856 ==

== ENCOUNTER 2025-01-11 10:11 | Outpatient (AMB) | payer OTHER, SELFPAY ==
--- NOTE | 2025-01-11 10:14 | MHC.OFFVIS ---
Vital Signs 01/11/25 10:16 Height 5 ft 4 in Weight 214 lb BMI 36.7 Intake Visit Reasons: ultrasound results Allergies bee pollen (BEE STINGS) Allergy (Severe, Verified 10/29/24 12:30) SWELLING morphine Allergy (Severe, Verified 10/29/24 12:30) Anaphylaxis HPI Comments Details: Presenting for ultrasound follow-up done in 01/10 which showed the following: 'Uterus: The uterus is anteverted , anteflexed and measures 9.5 x 4.4 x 6.8 cm. There is an intrauterine contraceptive device noted with endometrial thickness is not visualized. There is a trace fluid within the cervix. The uterus is smooth in contour and has normal myometrial echogenicity. No visible fibroid. Adnexa: Both ovaries are visualized. There is normal color flow to the adnexa. There is no ovarian torsion. There is no pelvic ascites or fluid collection. Right ovary measures 5.4 x 4.3 x 4.4 cm. Volume 53.4 mL. There is a complex cyst measuring 5.1 x 3.5 x 4.1 cm with likely smaller daughter cyst or septation within. Left ovary measures 3.3 x 2.1 x 2.2 cm. Volume 8.0 ml. There is a anechoic cyst measuring 2.2 x 1.1 x 1.1 cm. Normal arterial and venous flow seen on to both ovaries on Doppler exam. There is no free fluid in the cul-de-sac. 08/10 pelvic ultrasound showed the following: IMPRESSION: 1. IUD in the expected position in the endometrial cavity. 2. 5.2 x 3.7 x 4.2 cm left ovarian cyst containing a 2.1 cm diameter cyst. Follow-up is recommended with repeat pelvic ultrasound in 6 weeks, at a different time in the patient's menstrual cycle. 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[employer] Gender identity: Male and Female Female Reproductive History Menstrual Age of Menarche: 12 Review of Systems Const All systems reviewed & are unremarkable except as noted in HPI and below Reports as per HPI and Reports no additional complaints GI Reports no additional complaints Reports no additional complaints Physical Exam Vital Signs: BMI result Body Mass Index 36.7 Assessment & Plan Assessment & Plan (1) Complex cyst of left ovary: Comment: Resolved Code(s): N83.292 - Other ovarian cyst, left side Category: Medical Plan: Discussed with the patient ultrasound findings showing the previously identified left complex cyst has resolved. The patient was instructed to call if symptoms recur. All questions were answered the patient verbalized understanding. (2) Complex cyst of right ovary: Code(s): N83.291 - Other ovarian cyst, right side Category: Medical Plan: Discussed with the patient the right complex ovarian cyst by ultrasound. Discussed with the patient the Ultrasound findings, the main limitation of transvaginal ultrasonography alone as a diagnostic tool to distinguish benign from malignant masses relates to its lack of specificity and low positive predictive value for cancer. The differential diagnosis discussed with the patient includes the following but not limited to: benign and malignant gynecological and non-gynecological causes. Laboratory evaluation include UPT and GC/CT , serum tumor marker CA 125 . Discussed with the patient options of treatment including laparoscopy ovarian cystectomy/oophorectomy vs. expectant management with repeat US in repeating pelvic US in 6-12 weeks from previous US. If the ovarian complex cyst is persistent larger and / or more complex looking, will refer to gynecologic Oncology. All pros, cons, risks and benefits of each approach were discussed with the patient including but not limited to a delay in the diagnosis and treatment of ovarian cancer affecting the prognosis; The patient decided to go ahead with expectant management. Instructions given the patient to schedule a 3 months follow-up ultrasound appointment. All questions were answered & the patient verbalized understanding and agreed with the plan. Orders: Orders US pelvic and transvaginal 3 Months N83.299 - Other ovarian cyst, unspecified side Coding Level of Care Code Est Pt Level 3 (59292) Diagnoses Complex cyst of left ovary N83.292 Complex cyst of right ovary N83.291
[2025-01-11 10:16] VITALS: BMI 36.7
== END 2025-01-11 10:32 | disposition home or self-care (01) ==
LOC: HO.HWS 10:12
PROVIDERS: PCP Internal Medicine; Visit Provider Obstetrics & Gynecology
DX: N83.292 Other ovarian cyst, left side (principal); N83.291 Other ovarian cyst, right side
CPT/HCPCS: 99213

== ENCOUNTER → 2025-01-11 10:11 | Outpatient (BNVA) | payer OTHER, SELFPAY | PROVIDERS: PCP Internal Medicine; Visit Provider Obstetrics & Gynecology | DX: N83.292 Other ovarian cyst, left side (principal); N83.291 Other ovarian cyst, right side | CPT/HCPCS: 99212 ==

== ENCOUNTER 2025-02-14 14:19 | Outpatient (REF) | payer OTHER, SELFPAY ==
[2025-02-14 15:52] LABS: MANUAL DIFF FLAG NO
[2025-02-14 16:22] LABS: Hematocrit 38.4 % (37.0-47.0); Hemoglobin 12.6 g/dl (12.0-16.0); Imm Gran Abs Auto 0.07 X10*3/uL (0.00-0.03); Imm Gran Pct Auto 0.6 % (0.0-0.4); Lymphocytes Absolute Auto 3.4 X10*3/uL (1.2-4.9); Mean Corpuscular HGB Conc 32.8 g/dl (31.0-35.0); Mean Corpuscular Hemoglobin 27.8 pg (27.0-33.0); Mean Corpuscular Volume 84.8 fL (80.0-98.0); NRBC Abs Auto 0.000 X10*3/uL (0.0-0.012); NRBC Pct Auto 0.0 /100WBC (0.0-0.2); Platelet Count 282 X10*3/uL (160-400); Red Blood Count 4.53 X10*6/uL (4.20-5.50); White Blood Count 11.0 X10*3/uL (4.8-10.8)
[2025-02-14 16:28] LABS: Hemoglobin A1C 120.4168 umol/L
[2025-02-14 17:11] LABS: Alanine Aminotransferase 36 U/L (0-31); Albumin Level 4.7 g/dL (3.5-5.0); Alkaline Phosphatase 92 U/L (39-117); Anion Gap 11 (12-20); Aspartate Amino Transferase 27 U/L (5-31); Blood Urea Nitrogen 8 mg/dL (9-16); Calcium 9.5 mg/dL (8.4-10.2); Carbon Dioxide 28 mmol/L (22-29); Chloride 106 mmol/L (96-108); Cholesterol 152 mg/dL (<200); Estimated Glomerular Filt Rate > 60; HDL Cholesterol 36 mg/dL (>40); Iron 40 mcg/dL (30-160); Percent Iron Saturation 13 % (15-50); Potassium 3.7 mmol/L (3.3-5.1); Sodium 141 mmol/L (135-145); Total Iron Binding Capacity 313 mcg/dL (228-428); Total Protein 8.0 g/dL (6.5-8.0); Triglycerides 151 mg/dL (<150); Unsaturated Iron Binding 273 ug/dL
[2025-02-14 17:21] LABS: Vitamin B12 418 pg/mL (200-900)
[2025-02-14 17:50] LABS: CT PCR Urine NOT DETECTED (Not Detect.); NG PCR Urine NOT DETECTED (Not Detect.)
[2025-02-15 05:24] LABS: Syphilis Screen Reactive (Nonreactive)
[2025-02-15 06:01] LABS: HBS Num1 0.61 mIU/mL (0-7.99); HBc Num1 0.07 S/CO (0.00-0.79); HBsAGNum1 0.39 S/CO (0.00-0.99); HIV Num 1 0.05 S/CO (0.00-0.99); Hepatitis B Surface Antigen Negative (Negative); ~HepC Num1 0.10 S/CO (0.00-0.79); ~Hepatitis B Surface Antibody NONREACTIVE (Nonreactive); ~Hepatitis C Antibody Nonreactive (Nonreactive)
[2025-02-21 14:17] LABS: T.Pallidum Particle Agg Test Reactive (Nonreactive)
== END 2025-02-14 14:20 | disposition home or self-care (01) ==
LOC: HO.LAB 14:19
PROVIDERS: PCP Physician Assistant; Visit Provider Physician Assistant
DX: Z00.00 Encounter for general adult medical examination without abnormal findings (principal); Z20.2 Contact with and (suspected) exposure to infections with a predominantly sexual mode of transmission; R20.2 Paresthesia of skin; R29.898 Other symptoms and signs involving the musculoskeletal system; G35 Multiple sclerosis; E66.812 Obesity, class 2; R01.1 Cardiac murmur, unspecified; Z68.36 Body mass index [BMI] 36.0-36.9, adult
CPT/HCPCS: 36415; 80048; 80061; 80076; 82306; 82607; 83036; 83540; 84443; 85025; 86592; 86704; 86706; 86780; 86803; 87340; 87389; 87491; 87591; 99385

== ENCOUNTER 2025-02-14 14:19 | Outpatient (AMB) | payer OTHER, SELFPAY ==
--- NOTE | 2025-02-14 14:33 | A.OFFPC_ITS ---
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 Required: No Accompanied by: Self / Same As Patient Allergies bee pollen (BEE STINGS) Allergy (Severe, Verified 02/14/25 14:35) SWELLING morphine Allergy (Severe, Verified 02/14/25 14:35) Anaphylaxis Medication List - Last Reconciled 02/14/25 by LEYLA Jackson epinephrine (EpiPen) 0.3 mg (0.3 mL) IM Q10M PRN levonorgestrel (Mirena) intrauterine Tobacco use date assessed: 02/14/25 Dental Screening Dental Screen Date: 02/14/25 Did you have a dental visit in the last 12 months?: Yes Did you have a dental problem in the last 6 months where you did not have access to dental care?: No Was dental information given to patient?: No HPI HPI Comments History of Present Illness Details 39 year old female with history of ovari an cysts and nicotine dependence presenting to the office today for annual physical exam and to establish care. Last PCP was Dr. Cervantes, last seen about 2-3 years ago. Currently lives at home with her children and feels safe there. Was previously in an unhealthy relationship but is now out of this. She reports occasional alcohol use. She is smoking on a regular basis. Had quit, but her prior relationship resulted in her smoking again. Does have desire to quit. No illicit drug use. 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 Right ovarian cyst-reports occasional pain. Has Mirena in place. 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 Reports she has been trying to lose weight without much effect. She states that she has been eating smaller portions who was only eating twice daily. She states she will H has been raised, salad, chicken, yogurt and drinks plenty of water. She has also been exercising at home as well as going to the gym doing cardio as well as weights. Concern for MS-reports she was diagnosed with MS at a hospital in [place] in 2019 and follow with Neurology. She was then seen in 2019 with repeat study saying that she does not have active MS. She is uncertain which facility that was but does have paperwork. She does endorse paresthesias of the hands bilaterally as well as upper extremity weakness and occasional lower extremity weakness. No family history of MS Cardiac mumur- newly heard. FH cardiac murmurs in brother and nephew. Nephew has a tricuspid regurgitation. Brother with unknown history, possibly VSD per family member-still follows with cardiology. She has had intermittent lightheadedness including when moving off of the exam table Health Maintenance: Screening mammograms to start at age 42 Screening colonoscopy to start at age 47 Pap smear is up-to-date Eye exam is up-to-date Dental exam is up-to-date Reviewed last medical, surgical, family, surgical history ROS: General: No fevers, malaise, unintentional weight loss HEENT: No blurred vision, diplopia. No sore throat, nasal congestion, rhinorrhea, sinus pain, ear pain. No hearing loss Neck - no adenopathy Cardiovascular: No chest pain, palpitations, or leg edema Respiratory: No shortness of breath, wheezing, cough Breast: No pain, palpable lumps, nipple inversion GI: No dysphagia, odynophagia, globus sensation. No abdominal pain, nausea, vomiting, diarrhea, constipation, melena, hematochezia : No dysuria, hematuria, increased urinary frequency, decreased urinary output. 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 No AH/VH. No SI/HI Skin: No rashes or lesions EXAM: Constitutional - Awake and Alert, No apparent distress Eyes - PERRLA, EOMI. Anicteric Ears - external ears normal, canals clear, TMs intact and pearly coughlin with good cone of light Nose- septum midline, nares clear, no sinus tenderness Mouth/throat- mucosa moist, tongue and uvula midline, no erythema/edema or tonsillar adenopathy. Neck-trachea midline, thyroid symmetric without palpable nodules, no adenopathy Cardiovascular - S1S2, RRR, No edema, III/ mid systolic murmur best heard at left sternal border Respiratory - Normal lung expansion, Normal respiratory effort, No respiratory distress, CTA bilaterally Gastrointestinal - NT / ND; +BS; No rebound or guarding - No CVA tenderness Extremities - no calf tenderness bilaterally, no swelling Musculoskeletal - Normal inspection, normal ROM Skin - Warm/Dry, no concerning lesions Neurological - Alert & oriented x3, CN II-XII in tact, 5/5 strength BUE and BLE, 2+ patellar reflexes, sensation intact Psychological - Appropriate affect [facility] Medical History Cardiac murmur Class 2 obesity Obesity Uterine cyst Left ovarian cyst Irregular menses Peripheral vision loss Abnormal uterine bleeding (AUB) Simple ovarian cyst Surgical History Hx of tubal ligation Family History Mother Diabetes Brother Murmur, cardiac Social History Household Members: Children Housing: House Alcohol intake: unknown Patient Tobacco Use Status: Current everyday Tobacco user Cigarettes Per Day: 3 e-Cigarette/Vaping Use: Never Used service: No Current occupational status: employed 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 1. Little interest or pleasure in doing things: several days 2. Feeling down, depressed, or hopeless: not at all 3. Trouble falling or staying asleep, or sleeping too much: several days 4. Feeling tired or having little energy: nearly every day 5. Poor appetite or overeating: nearly every day 6. Feeling bad about yourself - or that you are a failure or have let yourself or your family down: nearly every day 7. Trouble concentrating on things, such as reading the newspaper or watching television: several days 8. Moving or speaking so slowly that other people could have noticed. Or the opposite - being so fidgety or restless that you have been moving around a lot m ore than usual: more than half the days 9. Thoughts that you would be better off or of hurting yourself in some way: not at all Total score: 14 Source: Developed by Drs. Taqueria L. Bhakti Vogel, Terence Hill and colleagues, with an educational liliana from [employer]. Thrive Questionnaire Date Thrive assessed: 02/14/25 I am a: Patient What is your living situation today?: I have a steady place to live Within the past 12 months, did the food you bought not last and you didn't have the money to get more?: Often true Within the past 12 months, did you worry whether your food would run out before you got money to buy more?: Often true Do you have trouble paying for medicines?: No Do you have trouble getting transportation to medical appointments?: No Do you have trouble paying your heating and electricity bill?: Yes Do you have trouble taking care of your child, family member or friend?: No Do you have trouble with day-to-day activities such as bathing, preparing meals, shopping, managing finances, etc.?: No Are you currently unemployed and looking for a job?: No Are you interested in more education?: No Please select the resources that you would like help with: None THRIVE Score: 3 AUDIT C Alcohol Use Questionnaire (AUDIT-C) 1. How often do you have a drink containing alcohol?: Monthly or less 2. How many drinks containing alcohol do you have on a typical day when you are drinking?: 1 or 2 Total Score: 1 PAMELA-7 AMB Questionnaire PAMELA-7 Date PAMELA - 7 assessed: 02/14/25 Feeling nervous, anxious, or on edge: 1 = Several days Not being able to stop or control worryin = More than half the days Worrying too much about different things: 3 = Nearly every day Trouble relaxin = More than half the days Being so restless that it is hard to sit still: 0 = Not at all Becoming easily annoyed or irritable: 3 = Nearly every day Feeling afraid as if something awful might happen: 1 = Several days Total PAMELA-7 score (0-4 normal; 5-9 mild; 10-14 moderate; 15-21 severe): 12 Source: Developed by Bhakti Britt, Terence Hill and colleagues, with an educational liliana from [employer]. Physical exam (Primary Care) Vital Signs: Last Vital Signs Temp 97.9 F 02/14/25 14:40 Pulse 76 09/29/25 14:40 BMI result Body Mass Index 36.4 Tobacco/Smoking Status: Tobacco use Status Tobacco use date assessed 02/14/25 02/14/25 14:42 Patient Tobacco Use Status Current everyday Tobacco 02/14/25 14:36 e-Cigarette/Vaping Use Never Used 02/14/25 14:42 PHQ-9: PHQ-9 Score PHQ-9: Total score 14 02/14/25 14:56 Thrive Assessment: Date of Thrive Assessment Date Thrive assessed 02/14/25 02/14/25 14:44 Coding Level of Care Code Est Pt Level 3 (45036) Est Pt Prev Care 18-39y(72768) Diagnoses Routine medical exam Z00.00 History of multiple sclerosis G35 Class 2 obesity E66.812 Cardiac murmur R01.1 Assessment & Plan Assessment & Plan (1) Routine medical exam: Code(s): Z00.00 - Encounter for general adult medical examination without abnormal findings Category: Medical Plan: 39-year-old female presenting for annual physical exam. Plan as below (2) History of multiple sclerosis: Code(s): G35 - Multiple sclerosis Category: Medical Plan: History unclear. Advised to obtain records and she is referred to neurology given associated symptoms present in the office today. Will also check labs (3) Class 2 obesity: Code(s): E66.812 - Obesity, class 2 Category: Medical Plan: Encouraged to continue with weight loss efforts. She is referred to weight management (4) Cardiac murmur: Code(s): R01.1 - Cardiac murmur, unspecified Category: Medical Plan: Echocardiogram ordered given family history and symptoms of lightheadedness Orders: Orders Lipid Panel Today Z00.00 - Encounter for general adult medical examination without abnormal findings, Z20.2 - Contact with and (suspected) exposure to infections with a predominantly sexual mode of transmission IRON PROFILE Today Z00.00 - Encounter for general adult medical examination without abnormal findings, Z20.2 - Contact with and (suspected) exposure to infections with a predominantly sexual mode of transmission Vitamin D 25-OH Total Today Z00.00 - Encounter for general adult medical examination without abnormal findings, Z20.2 - Contact with and (suspected) exposure to infections with a predominantly sexual mode of transmission Syphilis Screen Today Z00.00 - Encounter for general adult medical examination without abnormal findings, Z20.2 - Contact with and (suspected) exposure to infections with a predominantly sexual mode of transmission CT NG by PCR Urine Today Z00.00 - Encounter for general adult medical examination without abnormal findings, Z20.2 - Contact with and (suspected) exposure to infections with a predominantly sexual mode of transmission Trichomonas vaginalis RNA Today Z00.00 - Encounter for general adult medical examination without abnormal findings, Z20.2 - Contact with and (suspected) exposure to infections with a predominantly sexual mode of transmission Vitamin B12 Today R20.2 - Paresthesia of skin, R29.898 - Other symptoms and signs involving the musculoskeletal system Basic Metabolic Panel Today Z00.00 - Encounter for general adult medical examination without abnormal findings, Z20.2 - Contact with and (suspected) exposure to infections with a predominantly sexual mode of transmission Complete Blood Count Auto Diff Today Z00.00 - Encounter for general adult medical examination without abnormal findings, Z20.2 - Contact with and (suspected) exposure to infections with a predominantly sexual mode of transmission Hemoglobin A1c Today Z00.00 - Encounter for general adult medical examination without abnormal findings, Z20.2 - Contact with and (suspected) exposure to infections with a predominantly sexual mode of transmission Liver Panel Today Z00.00 - Encounter for general adult medical examination without abnormal findings, Z20.2 - Contact with and (suspected) exposure to infections with a predominantly sexual mode of transmission TSH reflex Free T4 Today Z00.00 - Encounter for general adult medical examination without abnormal findings, Z20.2 - Contact with and (suspected) exposure to infections with a predominantly sexual mode of transmission HIV Ab/Ag Today Z00.00 - Encounter for general adult medical examination without abnormal findings, Z20.2 - Contact with and (suspected) exposure to infections with a predominantly sexual mode of transmission Hepatitis B,C Profile Today Z00.00 - Encounter for general adult medical examination without abnormal findings, Z20.2 - Contact with and (suspected) exposure to infections with a predominantly sexual mode of transmission Referrals Neurology Referral G35 - Multiple sclerosis, R20.2 - Paresthesia of skin, R29.898 - Other symptoms and signs involving the musculoskeletal system Medical Weight Management Referral E66.812 - Obesity, class 2 Medications: New epinephrine (EpiPen) for 2 doses 0.3 mg (0.3 mL) IM Q10M PRN 1 ea 0RF anaphylaxis
[2025-02-14 14:40] VITALS: PULSE 76; TEMP 36.6; BMI 36.4
== END 2025-02-14 17:00 | disposition home or self-care (01) ==
LOC: HO.HMCHD 14:20
PROVIDERS: PCP Internal Medicine; Visit Provider Physician Assistant
DX: Z00.00 Encounter for general adult medical examination without abnormal findings (principal); G35 Multiple sclerosis; E66.812 Obesity, class 2; Z68.36 Body mass index [BMI] 36.0-36.9, adult; R01.1 Cardiac murmur, unspecified

== ENCOUNTER 2025-02-15 13:27 | Outpatient (REF) | payer OTHER, SELFPAY | END 2025-02-15 13:28 | disposition home or self-care (01) | LOC: HO.LAB 13:27 | PROVIDERS: PCP Physician Assistant; Visit Provider Physician Assistant | DX: A53.9 Syphilis, unspecified (principal) | CPT/HCPCS: 36415; 86592 ==

== ENCOUNTER 2025-03-16 11:06 | Outpatient (AMB) | payer OTHER, SELFPAY ==
--- NOTE | 2025-03-16 11:20 | MHC.OFFVIS ---
Intake Visit Reasons: Removal IUD Allergies bee pollen (BEE STINGS) Allergy (Severe, Verified 02/14/25 14:35) SWELLING morphine Allergy (Severe, Verified 02/14/25 14:35) Anaphylaxis HPI Comments Details: Presenting requesting Mirena IUD removal [facility] Medical History Cardiac murmur Class 2 obesity Obesity Uterine cyst Left ovarian cyst Irregular menses Peripheral vision loss Abnormal uterine bleeding (AUB) Simple ovarian cyst Surgical History Hx of tubal ligation Family History Mother Diabetes Brother Murmur, cardiac Social History Household Members: Children Housing: House Alcohol intake: unknown Patient Tobacco Use Status: Current everyday Tobacco user Cigarettes Per Day: 3 e-Cigarette/Vaping Use: Never Used service: No Current occupational status: employed 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[employer] Gender identity: Male and Female Cognitive needs: No Hearing needs: No Vision needs: Yes (Rx glasses PRN) Female Reproductive History Menstrual Age of Menarche: 12 Review of Systems Const All systems reviewed & are unremarkable except as noted in HPI and below Physical Exam General: Yes no CVA tenderness External Female Exam: normal external appearance and normal appearance of the urethra Speculum Exam - Vagina: normal appearance of the vagina, normal palpation, no lesions and no masses Speculum Exam - Cervix: normal appearance of the cervix, normal palpation, no lesions, no masses, nontender and Other cervical findings present (IUD string in place) Bimanual exam- vagina & uterus: normal bimanual exam, normal palpation, uterine size normal, normal palpation, uterine shape normal, No Cervical tenderness present and non-tender Bimanual Exam- Adnexa, other: normal adnexae Back/Spine/Pelvis Back: no CVA tenderness Office Procedures IUD Insert/Removal Details Details: Counseling/Consent: After discussing with the patient the risks of the procedure including bleeding, infection, scar tissue formation, , possible injury to blood vessels or nerves, chronic arm pain, blood transfusion, and irregular unpredictable bleeding Alternative options were discussed with the patient including but not limited: Do nothing. The patient signed the consent and agreed with the plan; all questions answered. Urine test was done in the office and was negative Preop dx: Requesting Mirena IUD removal Op: Mirena IUD removal Post op dx: same EBL= 10 cc Procedure: The patient was put in the dorsal lithotomy position a speculum was inserted in the vagina the IUD thread identified. Using a Teresa clamp the thread was grasped and the IUD pulled out with no complications. The patient tolerated the procedure well and was advised to use a different method for contraception. Discharge instructions: Instructions were given to the pt to call if temp>100.4, abdominal pain heavy vaginal bleeding, n/v occur. The patient verbalized understanding and all questions answered. This note was generated with a voice recognition program. Some errors may have been overlooked during the review of this note. Sometimes these errors may affect the content or meaning of a given sentence. 39045-EXV Removal Procedure code (CPT) selection complete Assessment & Plan Assessment & Plan (1) Encounter for IUD removal: Code(s): Z30.432 - Encounter for removal of intrauterine contraceptive device Category: Medical Plan: Mirena IUD removed, see procedure note Coding Level of Care Code Procedure Only Diagnoses Encounter for IUD removal Z30.432 CPT Codes Details - CPT: 35088-IAK Removal ([id number])
== END 2025-03-16 11:28 | disposition home or self-care (01) ==
LOC: HO.HWS 11:07
PROVIDERS: PCP Physician Assistant; Visit Provider Obstetrics & Gynecology
DX: Z30.432 Encounter for removal of intrauterine contraceptive device (principal)
CPT/HCPCS: 58301

== ENCOUNTER → 2025-03-16 11:06 | Outpatient (BNVA) | payer OTHER, SELFPAY | PROVIDERS: PCP Physician Assistant; Visit Provider Obstetrics & Gynecology | DX: Z30.432 Encounter for removal of intrauterine contraceptive device (principal) | CPT/HCPCS: 58301 ==

== ENCOUNTER → 2025-03-24 07:45 | Outpatient (REF) | payer OTHER, SELFPAY ==
--- NOTE | 2025-03-24 07:48 | CA_ITS ---
Transthoracic Echocardiogram Patient (Last, First, Middle): Aline Parnell, Gender: F Date of : 1985 Age: 39 Procedure Date: 03/24/2025 Procedure Type: Transthoracic Echocardiogram Location: OP Height: 165. cm Weight: 97.07 kg BSA: 2.03 m2 Heart Rate: 65 bpm BP: 100 / 65 mmHg Pst Supervisor: OLIVER Gómez MD: Kaia MAYER Painter Ordnance: Charles Grey MD Symptoms: R01.1 - Cardiac murmur, unspecified Study Quality: Adequate ECG Rhythm: Sinus Conclusions: - Essentially normal study Findings Left Ventricle Normal left ventricular size, thickness, and systolic function. The visually estimated ejection fraction is between 60-65%. Diastolic function is normal for age. Right Ventricle Normal right ventricular cavity size and systolic function. Atria Both atria are normal in size. There is no evidence of interatrial shunt. Aortic Valve The aortic valve structure and function is likely normal. There is no aortic valve stenosis. There is no aortic valve regurgitation. Mitral Valve Normal mitral valve structure and function. There is trace mitral valve regurgitation. There is no mitral valve stenosis. Pulmonic Valve The pulmonic valve is likely normal. There is trace to mild pulmonic valve regurgitation. Tricuspid Valve Likely normal tricuspid valve structure and function. Tricuspid regurgitation envelope is inadequate for calculation of right ventricular systolic pressure. Normal right atrial pressure. Great Vessels All visible segments of the aorta are normal in size. The pulmonary artery was not well visualized. Venous The inferior vena cava is normal in size and collapses greater than 50% with inspiration. Pericardium/Pleural There is no evidence of pericardial effusion. Prior Study Comparison No prior study available for comparison. Measurements 2D Linear Measurements IVSd: 0.87 0.6-0.9/0.6-1.0 cm LVIDd: 4.84 3.9-5.3/4.2-5.9 cm LVIDd Index: 2.38 2.4-3.2/2.2-3.1 cm/m2 LVIDs: 2.97 2.0-3.6 cm LVPWd: 1.01 0.7-1.1 cm LA Diam: 3.60 2.7-3.8/3.0-4.0 cm LAIDs Index: 1.77 1.5-2.3 cm/m2 LV Mass: 197.12 67-162/88-224 g LV Mass Index: 97.11 43-95/49-115 g/m2 LVOT Diam: 1.90 3.0+(-)1.3 cm 2D Systolic Function EF 4C: 63.70 >55% EF 2C: 62.00 >55% EF BiP: 63.40 >55% Mitral Valve MV Pk E: 0.68 MV PK A: 0.46 MV Decel Time: 211.00 E/A: 1.50 E'Lateral: 12.60 E'Medial: 9.03 E/E' Med: 7.50 E/E' Lat: 5.40 PHT: 62.00 MVA PHT: 3.55 Decel Pierce: 3.22 Aortic Valve AoV Pk Milton: 1.35 AoV Mn Milton: 0.93 AoV VTI: 0.29 AoV Pk Grad: 7.00 Aov Mn Grad: 4.00 WILLIE Cont.VTI: 2.32 LVOT LVOT Pk Milton: 1.04 LVOT Mn Milton: 0.72 LVOT VTI: 0.23 LVOT Pk Grad: 4.00 LVOT Mn Grad: 2.00 LVOT Diam: 1.90 LVOT Area: 2.84 Diastolic Function MV Pk E: 0.68 MV Pk A: 0.46 E/A: 1.50 E'Medial: 9.03 E/E' Med: 7.50 E' Laterial: 12.60 E/E' Lat: 5.40 Right Ventricle TAPSE (mm): 17.50 TVS' Milton: 10.80 Tricuspid Valve RA Press: 3.00 Great Vessels Aorta Sinus of Valsalva: 3.10 2.0-3.5 cm Ao Asc: 2.70 2.1-3.4 cm Pulmonary Veins Pulm Vein S/D 1.20 Pulmonary Valve PV Pk Milton: 0.90 Peak PV Grad: 3.00 Updated in Other Vendor System with Status of Final Charles Grey MD electronically signed on 03/24/2025 11:55:03 AM with status of Final
== END ==
LOC: HO.CARD 07:45
PROVIDERS: PCP Physician Assistant; Visit Provider Physician Assistant
DX: R01.1 Cardiac murmur, unspecified (principal); R42 Dizziness and giddiness; Z82.79 Family history of other congenital malformations, deformations and chromosomal abnormalities; Z82.49 Family history of ischemic heart disease and other diseases of the circulatory system
CPT/HCPCS: 93306

== ENCOUNTER → 2025-03-24 07:48 | Outpatient (BNV) | payer OTHER, SELFPAY | PROVIDERS: PCP Physician Assistant; Visit Provider Internal Medicine Cardiovascular Disease | DX: R01.1 Cardiac murmur, unspecified (principal) | CPT/HCPCS: 93306 ==

== ENCOUNTER 2025-04-13 16:25 | Outpatient (REF) | payer OTHER, SELFPAY ==
--- NOTE | ~2025-04-13 | US_ITS ---
EXAMINATION: US PELVIS CLINICAL INFORMATION: N83.299 - Other ovarian cyst, unspecified side COMPARISON: 12/30/2024 TECHNIQUE: Ultrasound of the pelvis is performed using both transabdominal and transvaginal transducers along with Doppler. Transvaginal imaging is performed due to inadequate visualization transabdominally. FINDINGS: Uterus: The uterus is anteverted and measures 6.6 x 11.1 x 4.8 cm. The double wall endometrial thickness is 18 mm. The uterus is smooth in contour and has normal myometrial echogenicity. No visible fibroid. Adnexa: Both ovaries are visualized. There is normal color flow to the adnexa. There is no ovarian torsion. There is no pelvic ascites or fluid collection. Right ovary: Pear shaped anechoic area with increased through transmission measures 5.2 x 2.7 x 3.7 cm in the right ovary that previously measured 5.1 x 3.5 x 4.1 cm. There is peripheral blood flow. Left ovary measures 2.9 x 1.5 x 2.0 cm cm. US/US pelvic and transvaginal IMPRESSION: Persistent 5.2 cm simple cyst in the right ovary with a septation. Follow-up in 1 year. Borderline thickened endometrium measuring 18 mm. If clinically indicated, follow-up in 10 weeks. Electronically signed by: Chaitanya Willingham MD 04/13/2025 05:31 PM JUAN
== END 2025-04-13 16:26 | disposition home or self-care (01) ==
LOC: HO.US 16:25
PROVIDERS: PCP Physician Assistant; Visit Provider Obstetrics & Gynecology
DX: N83.291 Other ovarian cyst, right side (principal)
CPT/HCPCS: 76830; 76856

== ENCOUNTER → 2025-04-13 16:27 | Outpatient (BNV) | payer OTHER, SELFPAY | PROVIDERS: PCP Physician Assistant; Visit Provider Radiology Diagnostic Radiology | DX: N83.291 Other ovarian cyst, right side (principal) | CPT/HCPCS: 76830; 76856 ==

== ENCOUNTER 2025-04-25 09:02 | Outpatient (REF) | payer OTHER, SELFPAY ==
[2025-04-25 17:19] LABS: Carcinoembryonic Antigen < 1.73 ng/mL
[2025-04-28 09:13] LABS: CA-125 9 U/mL (<35)
== END 2025-04-25 09:03 | disposition home or self-care (01) ==
LOC: HO.LAB 09:02
PROVIDERS: PCP Physician Assistant; Visit Provider Obstetrics & Gynecology
DX: N83.291 Other ovarian cyst, right side (principal); Z98.51 Tubal ligation status
CPT/HCPCS: 36415; 82105; 82378; 83520; 83615; 86301; 86304; 99212

== ENCOUNTER 2025-04-25 09:02 | Outpatient (AMB) | payer OTHER, SELFPAY ==
--- NOTE | 2025-04-25 09:12 | A.OFFVIS_ITS ---
Intake Visit Reasons: ultrasound follow uo Accompanied by: Self / Same As Patient Allergies bee pollen (BEE STINGS) Allergy (Severe, Verified 04/25/25 09:13) SWELLING morphine Allergy (Severe, Verified 04/25/25 09:13) Anaphylaxis HPI Comments Details: Presenting for ultrasound follow-up done on 04/13/2025 which showed the following: IMPRESSION: Persistent 5.2 cm simple cyst in the right ovary with a septation. Follow-up in 1 year. Borderline thickened endometrium measuring 18 mm. If clinically indicated, follow-up in 10 weeks. 12/31/2024 pelvic ultrasound showed the following: IMPRESSION: Complex cyst right ovary with likely a small daughter cyst or septation within . Simple cyst left ovary. IUD within endometrial canal in good position. The uterus otherwise is unremarkable. 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[employer] Gender identity: Male and Female Cognitive needs: No Hearing needs: No Vision needs: Yes (Rx glasses PRN) Female Reproductive History Menstrual Age of Menarche: 12 Review of Systems Const All systems reviewed & are unremarkable except as noted in HPI and below Reports as per HPI and Reports no additional complaints GI Reports no additional complaints Reports no additional complaints Assessment & Plan Assessment & Plan (1) Complex ovarian cyst: Comment: 5.2 cm, persistent since 12/30/24 Code(s): N83.299 - Other ovarian cyst, unspecified side Category: Medical Plan: Discussed with the patient the persistent complex ovarian cyst by Ultrasound. The differential diagnosis discussed with the patient includes the following but not limited to: benign and malignant gynecological and non-gynecological. CA 125, CA 19-9, CEA, inhibin B, AFP and LDH ordered.Instrument Designer Oncology referral placed for further management. Appointment scheduled with Dr. Mayer's at [facility] real estate administrator Oncology on 05/05/25, the patient is aware Instructed the patient to call our office back in case a referral appointment is not scheduled, missed or canceled so that we will assist on rescheduling another appointment, the patient verbalized understanding agreed with the plan. Orders: Orders CA-125 Today N83.299 - Other ovarian cyst, unspecified side Carbohydrate Antigen 19-9 Today N83.299 - Other ovarian cyst, unspecified side Carcinoembryonic Antigen Today N83.299 - Other ovarian cyst, unspecified side Lactate Dehydrogenase Today N83.299 - Other ovarian cyst, unspecified side Alpha Fetoprotein Today N83.299 - Other ovarian cyst, unspecified side Inhibin B Today N83.299 - Other ovarian cyst, unspecified side Referrals Gynecologic Oncology Referral N83.299 - Other ovarian cyst, unspecified side Coding Level of Care Code Est Pt Level 3 (69162) Diagnoses Complex ovarian cyst N83.299
== END 2025-04-25 10:05 | disposition home or self-care (01) ==
LOC: HO.HWS 09:02
PROVIDERS: PCP Physician Assistant; Visit Provider Obstetrics & Gynecology
DX: N83.299 Other ovarian cyst, unspecified side (principal)
CPT/HCPCS: 99213

== ENCOUNTER 2025-05-05 10:44 | Outpatient (REF) | payer OTHER, SELFPAY ==
[2025-05-05 13:14] LABS: Carcinoembryonic Antigen < 1.73 ng/mL
[2025-05-06 09:04] LABS: CA-125 11 U/mL (<35)
== END 2025-05-05 10:45 | disposition home or self-care (01) ==
LOC: HO.LAB 10:44
PROVIDERS: Obstetrics & Gynecology; PCP Physician Assistant; Visit Provider Obstetrics & Gynecology Gynecologic Oncology
DX: Z12.89 Encounter for screening for malignant neoplasm of other sites (principal)
CPT/HCPCS: 36415; 82378; 86304

== ENCOUNTER 2025-05-17 14:46 | Outpatient (REF) | payer OTHER, SELFPAY ==
[2025-05-17 15:59] LABS: Hematocrit 38.6 % (37.0-47.0); Hemoglobin 12.4 g/dl (12.0-16.0); Mean Corpuscular HGB Conc 32.1 g/dl (31.0-35.0); Mean Corpuscular Hemoglobin 27.3 pg (27.0-33.0); Mean Corpuscular Volume 84.8 fL (80.0-98.0); NRBC Abs Auto 0.000 X10*3/uL (0.0-0.012); NRBC Pct Auto 0.0 /100WBC (0.0-0.2); Platelet Count 258 X10*3/uL (160-400); Red Blood Count 4.55 X10*6/uL (4.20-5.50); White Blood Count 13.9 X10*3/uL (4.8-10.8)
== END 2025-05-17 14:47 ==
LOC: HO.LAB 14:46
PROVIDERS: PCP Physician Assistant; Visit Provider Obstetrics & Gynecology
DX: N93.9 Abnormal uterine and vaginal bleeding, unspecified (principal); Z32.02 Encounter for pregnancy test, result negative
CPT/HCPCS: 36415; 81025; 85027; 99212

== ENCOUNTER 2025-05-17 14:46 | Outpatient (AMB) | payer OTHER, SELFPAY ==
--- NOTE | 2025-05-17 15:04 | MHC.OFFVIS ---
Vital Signs 05/17/25 15:10 Height 5 ft 5 in Weight 207 lb BMI 34.4 BP 124/86 Intake Visit Reasons: vaginal bleeding Die Tester Required: No Information Interpreted: non-clinical & clinical Contact Finger Assembler: Contact Finger Assembler Present (Jessica SHANE) Accompanied by: Self / Same As Patient Allergies bee pollen (BEE STINGS) Allergy (Severe, Verified 05/17/25 15:10) SWELLING morphine Allergy (Severe, Verified 05/17/25 15:10) Anaphylaxis HPI Comments Details: Presenting with heavy vaginal bleeding. The patient was diagnose recently with complex ovarian cyst, all ovarian cancer tumor markers including CA 125, CA 19-9, LDH, alpha-fetoprotein LDH with a normal. The patient was sent for supervisor cabinetmaker Oncology consult on 04/29/2025, recommended repeat pelvic ultrasound in 6-8 weeks which is in the process of being scheduled. The following workup was done for AUB Last H&H in 02/10 was 12.6/38.4 05/12 TSH within normal Last Co testing 12/06 was negative 09/15 EMB pathology was negative for endometrial hyperplasia and/or malignancy 04/12 pelvic ultrasound was negative except for 5.2 cm complex ovarian cyst, Gyne Onc consult done on 04/29/2025, repeat ultrasound will be scheduled in 8 weeks with a follow-up appointment Levo norgestrel IUD was removed per the patient request on 03/16/2025 after 3 years of failing to control AUB PFSH Medical History (Updated 05/17/25 @ 15:30 by Rashaun Carter MD) Cardiac murmur Class 2 obesity Obesity Uterine cyst Left ovarian cyst Irregular menses Peripheral vision loss Abnormal uterine bleeding (AUB) Simple ovarian cyst Surgical History Hx of tubal ligation Family History Mother Diabetes Brother Murmur, cardiac Social History Household Members: Children Housing: House Alcohol intake: unknown Patient Tobacco Use Status: Current everyday Tobacco user Cigarettes Per Day: 6 e-Cigarette/Vaping Use: Never Used service: No Current occupational status: employed Current occupation: [employer] Gender identity: Male and Female Cognitive needs: No Hearing needs: No Vision needs: Yes (Rx glasses PRN) Female Reproductive History Menstrual Age of Menarche: 12 Review of Systems Const All systems reviewed & are unremarkable except as noted in HPI and below Physical Exam General: Yes no CVA tenderness External Female Exam: normal external appearance and normal appearance of the urethra Speculum Exam - Vagina: normal appearance of the vagina, normal palpation, no lesions and no masses Speculum Exam - Cervix: normal appearance of the cervix, normal palpation, no lesions, no masses and nontender Bimanual exam- vagina & uterus: normal bimanual exam, normal palpation, uterine size normal, normal palpation, uterine shape normal, No Cervical tenderness present and non-tender Bimanual Exam- Adnexa, other: normal adnexae Back/Spine/Pelvis Back: no CVA tenderness Results AMB Test Urine AMB Test Urine Negative Last Edit by Jessica Hill CMA on 05/17/25 15:27 Assessment & Plan Assessment & Plan (1) Abnormal uterine bleeding (AUB): Code(s): N93.9 - Abnormal uterine and vaginal bleeding, unspecified Category: Medical Plan: UPT done in the office was negative. CBC ordered. Will start the patient on Provera 10 mg p.o. q.d. for the coming 90 days, instructions given the patient to discontinue smoking to switch to control pills. Recommended the patient to follow-up with Gyne Onc within few weeks with a follow-up ultrasound as scheduled and to schedule a follow-up appointment within 60 days All questions answered, the patient verbalized understanding. Orders: Orders Complete Blood Count no Diff Today N93.9 - Abnormal uterine and vaginal bleeding, unspecified AMB HCG Urine Test Today Z32.02 - Encounter for test, result negative Medications: New medroxyprogesterone (Provera) start Provera 1 tablet daily 10 mg PO DAILY 90 tabs 0RF 90 days Coding Level of Care Code Est Pt Level 3 (52048) Diagnoses Abnormal uterine bleeding (AUB) N93.9
[2025-05-17 15:10] VITALS: BP 124/86; BMI 34.4
== END 2025-05-17 15:15 | disposition home or self-care (01) ==
LOC: HO.HWS 14:47
PROVIDERS: PCP Physician Assistant; Visit Provider Obstetrics & Gynecology
DX: N93.9 Abnormal uterine and vaginal bleeding, unspecified (principal); Z32.02 Encounter for pregnancy test, result negative
CPT/HCPCS: 99213